=== PATIENT | male | born 1935 | race Caucasian/White ===

== ENCOUNTER 2016-12-10 08:19 | Inpatient (IN) | payer MEDICARE, OTHER ==
[2016-12-10] VITALS (11 sets, daily range): BP systolic 112–149; BP diastolic 57–70; PULSE 60–68; RESP 18; TEMP 97.6–98.4; O2SAT 92–100
[~2016-12-10] VITALS: Ht 175.3 cm; Wt 84.0 kg
[~2016-12-10 08:19] MED LIST: ATELTAB PO; CARD2TAB PO; CYMB60CA PO; FURO1TAB60 PO; GABA300C5 PO; KRIL1000 PO; LEVO-86 PO; LISI40TA PO; TOPR200T PO; WARF-20 PO
[2016-12-10] MEDS: CHLORHEXIDINE GLUCONATE 2 % 1 PACK (2 CLOTHS) TOPICAL PRN ×2 (09:00→10:00)
[2016-12-10] MEDS: POVIDONE IODINE 5% (ANTISEPSIS KIT) 4 APPLICATIONS EACH NARE PRN ×2 (09:00→10:00)
[2016-12-10] MEDS: LACTATED RINGER'S 1000 ML IV PRN ×2 (09:00→10:00)
[2016-12-10] MEDS ORDERED: INSULIN HUMAN REGULAR 1,000 UNITS/10 ML VIAL SQ PRN (09:15)
[2016-12-10] MEDS ORDERED: METOPROLOL TARTRATE 25 MG TAB PO PRN (09:15)
[2016-12-10] MEDS ORDERED: SODIUM CHLORID 0.9% 500 ML IV PRN (09:15)
[2016-12-10] MEDS ORDERED: ceFAZolin 1,000 MG/NS 100 ML IV SCH ×2 (09:15)
[2016-12-10 09:31] LABS: AUTOMATED NEUTROPHIL # 7.5 TH/MM3 (1.8-7.7); BASOPHIL # 0.1 TH/MM3 (0-0.2); BASOPHIL % 0.8 % (0.0-2.0); EOSINOPHIL # 0.2 TH/MM3 (0-0.4); EOSINOPHIL % 2.1 % (0.0-4.0); HEMATOCRIT 39.3 % (39.0-51.0); HEMOGLOBIN 12.6 GM/DL (13.0-17.0); LYMPH % 11.3 % (9.0-44.0); LYMPHOCYTE # 1.1 TH/MM3 (1.0-4.8); MEAN CELL VOLUME 89.4 FL (80.0-100.0); MEAN CORPUSCULAR HEMOGLOBIN 28.8 PG (27.0-34.0); MEAN CORPUSCULAR HGB CONC 32.2 % (32.0-36.0); MEAN PLATELET VOLUME 7.9 FL (7.0-11.0); MONO % 7.2 % (0.0-8.0); MONOCYTE # 0.7 TH/MM3 (0-0.9); NEUT % 78.6 % (16.0-70.0); PLATELET COUNT 346 TH/MM3 (150-450); RED BLOOD COUNT 4.39 MIL/MM3 (4.50-5.90); RED CELL DISTRIBUTION WIDTH 15.2 % (11.6-17.2); WHITE BLOOD COUNT 9.6 TH/MM3 (4.0-11.0)
[2016-12-10 09:43] LABS: BICARBONATE 32.4 MEQ/L (21.0-32.0); CALCIUM 8.8 MG/DL (8.5-10.1); CREATININE 1.39 MG/DL (0.60-1.30)
[2016-12-10 09:46] LABS: INTERNATIONAL NORMALIZED RATIO 1.1 RATIO; PROTHROMBIN TIME - PATIENT 12.5 SEC (9.8-11.6)
[2016-12-10] MEDS ORDERED: BUPIVACAINE/EPINEPHRINE 0.5% 50 ML VIAL ONE (11:14)
[2016-12-10] MEDS ORDERED: HEPARIN SODIUM - IV 10,000 UNITS/10 ML VIAL ONE (11:14)
[2016-12-10] MEDS ORDERED: ceFAZolin INJ 1,000 MG VIAL ONE (11:14)
[2016-12-10] MEDS ORDERED: HEPARIN SODIUM - SQ 10,000 UNITS/ML VIAL ONE (11:14)
[2016-12-10] MEDS ORDERED: PROTAMINE SULFATE 50 MG/5 ML VIAL ONE (11:14)
[2016-12-10] MEDS ORDERED: LIDOCAINE HCL 1% 50 ML VIAL ONE (11:15)
[2016-12-10] MEDS ORDERED: DO NOT ADM ANY ANTICOAGULANT DRUGS PRN (13:42)
[2016-12-10] MEDS ORDERED: SODIUM CHLORIDE 0.9% FLUSH 10 ML FLUSH IV FLUSH PRN (14:15)
[2016-12-10] MEDS ORDERED: ONDANSETRON HCL 4 MG/2 ML VIAL IV PUSH PRN (14:15)
[2016-12-10] MEDS: MORPHINE SULFATE 4 MG/ML INJ IV PUSH PRN ×2 (16:17→23:41)
--- NOTE | 2016-12-10 17:21 | MP ---
cc: NOHA FIORE D.O.,NOAH COLMENARES DATE OF SURGERY: 12/10/2016 PREOPERATIVE DIAGNOSIS: Severe bilateral carotid stenoses, critical left. POSTOPERATIVE DIAGNOSIS: Severe bilateral carotid stenoses, critical left. OPERATION: Left carotid endarterectomy with bovine patch angioplasty. SURGEON: Noah Alberto MD. NURSING HOME AIDE: YULIYA Briggs. ANESTHESIA: General endotracheal anesthesia DESCRIPTION OF OPERATIVE PROCEDURE: With the patient in the supine position, general endotracheal anesthesia was induced, the cervical spine extended, rotated to the right, left anterior cervical area prepped with Betadine and draped in a sterile fashion. One gram of Ancef was administered intravenously and following a protocol time-out, the skin and subcutaneous tissue along the proposed incisional area was preemptively infiltrated with 0.5% Marcaine with epinephrine. A curvilinear incision was performed along the anterior border of the sternocleidomastoid and deepened through the platysma. The sternocleidomastoid and internal jugular vein were mobilized laterally. The common internal, external, carotid and superior thyroid arteries were circumferentially mobilized. Care taken to identify and protect the hypoglossal and vagus nerves. The patient was systemically heparinized with 5000 units. The superior thyroid, external and internal carotid arteries were sequentially occluded with Yasargil clips, the proximal common carotid artery occluded with an angled DeBakey vascular clamp. A vertical arteriotomy was performed along the anterolateral surface of common carotid and extended well into the internal carotid lumen. Two high-grade obstructive focal plaques were present, one within the distal common and the second proximally 2-1/2 cm distal to the bifurcation within the mid internal carotid lumen. The more distal stenosis created near complete occlusion of the internal carotid artery. A Lan shunt was introduced and secured with Lan shunt clamps, care taken to avoid air or atheroembolization. The plaque was cleanly and completely endarterectomized. The neolumen was copiously irrigated with heparinized saline. A bovine patch was secured to the endarterectomy incision with continuous 6-0 Prolene. Prior to placement of the final sutures the Lan shunt was removed, the arterial lumen appropriately flushed, final sutures placed and tied. Pulsatile flow was reestablished first into the external and secondly into the internal carotid as confirmed by Doppler signal. Heparin was reversed with 20 mg of protamine. Strict hemostasis was assured. The platysmal fascia was reapproximated with continuous 4-0 Monocryl and skin reapproximated with continuous subcuticular 5-0 Monocryl. Steri-Strips and sterile dressing were applied. Instrument, needle and sponge count correct x2. No operative complications. Upon awakening from anesthesia no lateralizing neurological deficits were present. MD ELLA Rincon/NEETA /4:54 PM /5:07 PM
--- NOTE | 2016-12-10 20:49 | EKG ---
Date Performed: 12/10/2016 Time Performed: 09:19:29 PTAGE: 81 years EKG: ELECTRONIC VENTRICULAR PACEMAKER WHEN COMPARED TO PRIOR EKG PATIENT IS NO LONGER TACHYCARDI C. ABNORMAL RHYTHM ECG PREVIOUS TRACING : 02/16/2014 12.16 DOCTOR: Jihan Garduno Interpretating Date/Time 12/10/2016 20:48:48
[2016-12-10] MEDS ORDERED: DOXAZOSIN MESYLATE 2 MG TAB PO SCH (21:00)
[2016-12-10] MEDS: FUROSEMIDE 40 MG TAB PO SCH (21:01)
[2016-12-10] MEDS: ACETAMINOPHEN/HYDROcodone 325 MG/5 MG TAB PO PRN (21:01)
[2016-12-10] MEDS: GABAPENTIN 300 MG CAP PO SCH (21:01)
[2016-12-10] MEDS: SODIUM CHLORIDE 0.9% FLUSH 10 ML FLUSH IV FLUSH SCH (21:02)
[2016-12-10] MEDS: DULoxetine HCl DR 60 MG CAP PO SCH (21:11)
[2016-12-11] VITALS (19 sets, daily range): BP systolic 131–142; BP diastolic 60–66; PULSE 60–83; RESP 16–18; TEMP 97.6–97.9; O2SAT 94–98
[2016-12-11] MEDS ORDERED: LEVOTHYROXINE SODIUM 25 MCG TAB PO SCH (06:00)
[2016-12-11] MEDS ORDERED: LEVOTHYROXINE SODIUM 112 MCG TAB PO SCH (06:00)
[2016-12-11] MEDS: ACETAMINOPHEN/HYDROcodone 325 MG/5 MG TAB PO PRN (06:17)
[2016-12-11] MEDS ORDERED: METOPROLOL SUCCINATE 50 MG EXTENDED RELEASE TAB PO SCH (09:00)
[2016-12-11] MEDS ORDERED: LISINOPRIL 20 MG TAB PO SCH (09:00)
[2016-12-11] MEDS: SODIUM CHLORIDE 0.9% FLUSH 10 ML FLUSH IV FLUSH SCH (09:53)
[2016-12-11] MEDS: FUROSEMIDE 40 MG TAB PO SCH (09:54)
[2016-12-11] MEDS: GABAPENTIN 300 MG CAP PO SCH ×2 (09:54→14:40)
[2016-12-11] MEDS: DULoxetine HCl DR 60 MG CAP PO SCH (09:55)
[2016-12-11] MEDS ORDERED: PNEUMOCOCCAL POLYVALENT INJ 25 MCG/0.5 ML SYR IM ONE (10:00)
== END 2016-12-11 15:06 | disposition home or self-care (01) | DRG 38 ==
LOC: HSDI 08:19 → HCPC 16:03
PROVIDERS: ADMIT Surgery Vascular Surgery; ATTEND Surgery Vascular Surgery
PROC: 03CL0ZZ Extirpation of Matter from Left Internal Carotid Artery, Open Approach (ICD-10-PCS; 2016-12-10)
PROC: 03UL0KZ Supplement Left Internal Carotid Artery with Nonautologous Tissue Substitute, Open Approach (ICD-10-PCS; 2016-12-10)
PROC: 03CJ0ZZ Extirpation of Matter from Left Common Carotid Artery, Open Approach (ICD-10-PCS; principal; 2016-12-10 11:30)
DX: I65.23 Occlusion and stenosis of bilateral carotid arteries (principal); I13.0 Hypertensive heart and chronic kidney disease with heart failure and stage 1 through stage 4 chronic kidney disease, or unspecified chronic kidney disease; N18.4 Chronic kidney disease, stage 4 (severe); G62.9 Polyneuropathy, unspecified; I50.9 Heart failure, unspecified; J44.9 Chronic obstructive pulmonary disease, unspecified; I48.2 Chronic atrial fibrillation; N40.0 Benign prostatic hyperplasia without lower urinary tract symptoms; I73.9 Peripheral vascular disease, unspecified; E78.5 Hyperlipidemia, unspecified; E03.9 Hypothyroidism, unspecified; Z23 Encounter for immunization; Z95.0 Presence of cardiac pacemaker; Z87.891 Personal history of nicotine dependence; Z86.73 Personal history of transient ischemic attack (TIA), and cerebral infarction without residual deficits; Z85.828 Personal history of other malignant neoplasm of skin
CPT/HCPCS: 80048; 85025; 85610; 85730; 86850; 86900; 86901; 90732; 93005; J0690; J1644; J2270; J2720; J7120

== ENCOUNTER 2017-01-13 13:25 | Inpatient (IN) | payer MEDICARE, OTHER ==
[~2017-01-13] VITALS: Ht 175.3 cm; Wt 79.5 kg
[2017-01-13] VITALS (13 sets, daily range): BP systolic 121–203; BP diastolic 64–98; PULSE 85–111; RESP 16–20; TEMP 98.2–98.8; O2SAT 78–100
[2017-01-13] MEDS ORDERED: GABA600T PO (13:42)
[2017-01-13] MEDS ORDERED: SYMB80AE INH (13:42)
[2017-01-13] MEDS ORDERED: ALBU0.08 NEB (13:42)
[2017-01-13] MEDS ORDERED: RESP: ALBUTEROL 2.5 MG/IPRATROPIUM 0.5 MG NEB (SCH) NEB ONE (13:45)
[2017-01-13] MEDS ORDERED: FUROSEMIDE 100 MG/10 ML VIAL IV PUSH ONE (13:45)
--- NOTE | 2017-01-13 13:46 | PD ---
HPI Chief Complaint: Respiratory Distress Time Seen by Provider: 13:33 Travel History International Travel<30 days: No Contact w/Intl Traveler<30days: No Traveled to known affect area: No History of Present Illness HPI This 81-year-old male is complaining of shortness of breath for several days. He has a history of COPD and also CHF. He has a pacemaker. He had a stroke in 1993 but had a full recovery. He does have a history of atrial fibrillation and is on Coumadin. He says that several months ago he had a thoracentesis on several liters of fluid removed from his chest at [facility]. He denies any chest pain. He is on Lasix twice a day. He denies any recent chest pain except chest pain associated with coughing. He stopped smoking many years ago. He is not aware of any history of myocardial infarction PFS Past Medical History Arthritis: Yes Autoimmune Disease: No Heart Rhythm Problems: Yes (AFIB S/P PACER) Cancer: Yes (skin cancer) Cardiovascular Problems: Yes (a fib pt thinks possible congestive heart problems) High Cholesterol: Yes Congestive Heart Failure: Yes Cerebrovascular Accident: Yes (TIA) Diabetes: No Endocrine: Yes Glaucoma: No Genitourinary: No Hepatitis: No Hiatal Hernia: No Hypertension: Yes Immune Disorder: No Musculoskeletal: Yes (back and neck problems arthritis hx of spinal stenosis) Neurologic: Yes (stroke tia later on ) Psychiatric: No Reproductive: No Respiratory: Yes (copd) Thyroid Disease: Yes Past Surgical History Abdominal Surgery: No AICD: No Body Medical Devices: PACEMAKER Cardiac Surgery: Yes (pacemaker 1993) Ear Surgery: No Endocrine Surgery: No Eye Surgery: Yes (cataract surgery) Genitourinary Surgery: No Gynecologic Surgery: No Joint Replacement: Yes (left knee) Oral Surgery: Yes ( t and a) Pacemaker: Yes (medtronic) Thoracic Surgery: No Other Surgery: Yes Social History Alcohol Use: Yes (couple of beers mostly in the evening) Tobacco Use: Yes (pt quit in 1976) Substance Use: No Allergies-Medications (Allergen,Severity, Reaction): Coded Allergies: No Known Allergies (Unverified , 12/10/16) Reported Meds & Prescriptions Reported Meds & Active Scripts Active Reported Albuterol Neb (Albuterol Sulfate) 2.5 Mg/3 Ml Neb 2.5 Mg NEB Q4HR NEB While awake Symbicort Inh (Budesonide/Formoterol Fumarate) 80-4.5 Mcg/Act Aero 2 Puff INH Q12HR Gabapentin 600 Mg Tab 600 Mg PO BID Atelvia (Risedronate) 35 Mg Tabdr 35 Mg PO Q7D Warfarin 4 Mg Tab 4 Mg PO HS Toprol XL (Metoprolol Succinate) 200 Mg Tab 200 Mg PO HS Synthroid (Levothyroxine Sodium) 137 Mcg Tab 137 Mcg PO DAILY Lisinopril 40 Mg Tab 40 Mg PO DAILY Lasix (Furosemide) 40 Mg Tab 40 Mg PO BID Cymbalta DR (Duloxetine HCl) 60 Mg Capdr 60 Mg PO BID Cardura (Doxazosin Mesylate) 2 Mg Tab 2 Mg PO HS Review of Systems General / Constitutional: No: Fever, Chills Eyes: No: Diploplia, Blurred Vision HENT: No: Headaches, Vertigo Cardiovascular: No: Chest Pain or Discomfort, Palpitations Respiratory: Positive: Cough, Shortness of Breath Gastrointestinal: No: Vomiting, Diarrhea Genitourinary: No: Urgency, Frequency, Oliguria Skin: No Rash, No Itching Neurologic: No: Weakness Physical Exam Narrative GENERAL well-developed male. On arrival his oxygen saturation 78% and he is in marked respiratory distress SKIN: Focused skin assessment warm/dry. HEAD: Atraumatic. Normocephalic. EYES: Pupils equal and round. No scleral icterus. No injection or drainage. ENT: No nasal bleeding or discharge. Mucous membranes pink and moist. NECK: Trachea midline. No JVD. CARDIOVASCULAR: Irregular rate and rhythm. No murmur appreciated. RESPIRATORY: There is accessory muscle use. He has bilateral rales GASTROINTESTINAL: Abdomen soft, non-tender, nondistended. Hepatic and splenic margins not palpable. MUSCULOSKELETAL: No obvious deformities. No clubbing. No cyanosis. Trace edema. NEUROLOGICAL: Awake and alert. No obvious cranial nerve deficits. Motor grossly within normal limits. Normal speech. PSYCHIATRIC: Appropriate mood and affect; insight and judgment normal. Data Data Last Documented VS Vital Signs Date Time Temp Pulse Resp B/P (MAP) Pulse Ox O2 Delivery O2 Flow Rate FiO2 01/13/17 14:19 111 18 184/78 (113) 92 Nasal Cannula 4.00 01/13/17 13:42 98.8 Orders Orders Complete Blood Count With Diff (01/13/17 13:40) Comprehensive Metabolic Panel (01/13/17 13:40) Troponin I (01/13/17 13:40) B-Type Natriuretic Peptide (01/13/17 13:40) Prothrombin Time / Inr (Pt) (01/13/17 13:40) Act Partial Throm Time (Ptt) (01/13/17 13:40) Blood Culture (01/13/17 13:40) Urinalysis - C+S If Indicated (01/13/17 13:40) Chest, Single Ap (01/13/17 13:40) Albuterol-Ipratropium Neb (Duoneb Neb) (01/13/17 13:45) Furosemide Inj (Lasix Inj) (01/13/17 13:45) Electrocardiogram (01/13/17 13:29) Potassium Chloride Eff (K-Lyte Cl Eff) (01/13/17 15:00) Labs Laboratory Tests Test 01/13/17 14:00 01/13/17 14:35 White Blood Count 10.2 TH/MM3 Red Blood Count 4.62 MIL/MM3 Hemoglobin 13.0 GM/DL Hematocrit 40.3 % Mean Corpuscular Volume 87.3 FL Mean Corpuscular Hemoglobin 28.2 PG Mean Corpuscular Hemoglobin Concent 32.3 % Red Cell Distribution Width 15.4 % Platelet Count 253 TH/MM3 Mean Platelet Volume 8.5 FL Neutrophils (%) (Auto) 85.0 % Lymphocytes (%) (Auto) 7.3 % Monocytes (%) (Auto) 7.5 % Eosinophils (%) (Auto) 0.1 % Basophils (%) (Auto) 0.1 % Neutrophils # (Auto) 8.7 TH/MM3 Lymphocytes # (Auto) 0.7 TH/MM3 Monocytes # (Auto) 0.8 TH/MM3 Eosinophils # (Auto) 0.0 TH/MM3 Basophils # (Auto) 0.0 TH/MM3 CBC Comment DIFF FINAL Differential Comment Prothrombin Time 11.4 SEC Prothromb Time International Ratio 1.0 RATIO Activated Partial Thromboplast Time 30.8 SEC Blood Urea Nitrogen 22 MG/DL Creatinine 1.40 MG/DL Random Glucose 102 MG/DL Total Protein 8.1 GM/DL Albumin 3.0 GM/DL Calcium Level 8.5 MG/DL Alkaline Phosphatase 87 U/L Aspartate Amino Transf (AST/SGOT) 39 U/L Alanine Aminotransferase (ALT/SGPT) 26 U/L Total Bilirubin 1.4 MG/DL Sodium Level 139 MEQ/L Potassium Level 2.8 MEQ/L Chloride Level 101 MEQ/L Carbon Dioxide Level 29.2 MEQ/L Anion Gap 9 MEQ/L Estimat Glomerular Filtration Rate 49 ML/MIN Troponin I 1.08 NG/ML B-Type Natriuretic Peptide 600 PG/ML Urine Color YELLOW Urine Turbidity CLEAR Urine pH 6.0 Urine Specific [place] 1.014 Urine Protein 300 OR GREATER mg/dL Urine Glucose (UA) NEG mg/dL Urine Ketones NEG mg/dL Urine Occult Blood MOD Urine Nitrite NEG Urine Bilirubin NEG Urine Leukocyte Esterase NEG Urine RBC 0-3 /hpf Urine Squamous Epithelial Cells 0-5 /hpf Urine Bacteria RARE /hpf Urine Granular Casts 3-5 /lpf Microscopic Urinalysis Comment CULT NOT INDICATED MDM Medical Decision Making Medical Screen Exam Complete: Yes Emergency Medical Condition: Yes Medical Record Reviewed: Yes Differential Diagnosis Differential diagnoses includes CHF, COPD, pneumonia Narrative Course EKG shows atrial fibrillation at a rate of 99. There is slight ST depression in V5 and a 6. Chest x-ray shows cardiomegaly with bilateral pleural effusions and bilateral infiltrates. His BNP is 600. Troponin is 1.08. Potassium is 2.8. Case discussed with Dr. JETER who recommends transfer to [facility] Diagnosis Primary Impression: Congestive heart failure (CHF) Additional Impressions: Elevated troponin Hypokalemia Admitting Information Admitting Physician Requests: Admit Josemanuel Hooper MD Jan 13, 2017 13:46
[2017-01-13 14:14] LABS: AUTOMATED NEUTROPHIL # 8.7 TH/MM3 (1.8-7.7); BASOPHIL % 0.1 % (0.0-2.0); EOSINOPHIL % 0.1 % (0.0-4.0); HEMATOCRIT 40.3 % (39.0-51.0); HEMO FLAGS DIFF FINAL; LYMPH % 7.3 % (9.0-44.0); LYMPHOCYTE # 0.7 TH/MM3 (1.0-4.8); MEAN CELL VOLUME 87.3 FL (80.0-100.0); MEAN CORPUSCULAR HEMOGLOBIN 28.2 PG (27.0-34.0); MEAN CORPUSCULAR HGB CONC 32.3 % (32.0-36.0); MONO % 7.5 % (0.0-8.0); PLATELET COUNT 253 TH/MM3 (150-450); RED BLOOD COUNT 4.62 MIL/MM3 (4.50-5.90); RED CELL DISTRIBUTION WIDTH 15.4 % (11.6-17.2); WHITE BLOOD COUNT 10.2 TH/MM3 (4.0-11.0)
[2017-01-13 14:26] LABS: APTT (PATIENT) 30.8 SEC (24.3-30.1); PROTHROMBIN TIME - PATIENT 11.4 SEC (9.8-11.6)
[2017-01-13 14:47] LABS: BLOOD, URINE MOD (NEG); GLUCOSE,URINE NEG (NEG); KETONE, URINE NEG (NEG); NITRITE,URINE NEG (NEG)
[2017-01-13 14:48] LABS: ALKALINE PHOSPHATASE 87 U/L (45-117); ALT (GPT) 26 U/L (12-78); ANION GAP 9 MEQ/L (5-15); AST (GOT) 39 U/L (15-37); BICARBONATE 29.2 MEQ/L (21.0-32.0); BLOOD UREA NITROGEN 22 MG/DL (7-18); CHLORIDE 101 MEQ/L (98-107); GLOMERULAR FILTRATION RATE 49 ML/MIN (>89); SODIUM (NA) 139 MEQ/L (136-145); TOTAL BILIRUBIN ADULT 1.4 MG/DL (0.2-1.0)
[2017-01-13 14:50] LABS: POTASSIUM 2.8 MEQ/L (3.5-5.1)
[2017-01-13 14:51] LABS: URINE COLOR YELLOW (YELLW/STRAW)
[2017-01-13 14:54] LABS: BACTERIA, URINE RARE /hpf; COMMENT (UR) CULT NOT INDICATED; CULTURE IF INDICATED CULT NOT INDICATED; RBC, URINE 0-3 /hpf (0-3); SQUAMOUS EPITHELIAL CELL URINE 0-5 /hpf (0-5)
[2017-01-13] MEDS ORDERED: POTASSIUM CHLORIDE 25 MEQ EFFERVESCENT TAB PO ONE (15:00)
--- NOTE | 2017-01-13 15:11 | RADRPT ---
EXAM DATE/TIME: 01/13/2017 13:50 [facility] COMPARISON: CHEST SINGLE AP, January 09, 2012, 16:44. INDICATIONS : Short of breath MEDICAL HISTORY : Chronic obstructive pulmonary disease. Hypertension Congestive heart failure. Afib SURGICAL HISTORY : Pacemaker. ENCOUNTER: Initial ACUITY: 1 day PAIN SCORE: 0/10 LOCATION: Bilateral chest FINDINGS: The cardiac silhouette is enlarged in transverse diameter. There are findings of congestive heart kalani lure with interstitial and alveolar opacity bilaterally. Moderate size bilateral pleural effusions ar e identified. A bipolar pacemaker is in place via a right sided approach. CONCLUSION: 1. Cardiomegaly and findings of congestive heart failure. This is new when compared with the prior ex am. Norman Potts MD on January 13, 2017 at 15:08 Board Certified Radiologist. This report was verified electronically.
[2017-01-13] MEDS ORDERED: WARFARIN SOD 4 MG TAB PO ONE (15:30)
--- NOTE | 2017-01-13 15:55 | HHI.HP ---
[facility] Service [facility] Primary Care Physician Adarsh Sawyer, Admission Diagnosis CHF, ELEVATED TROPONIN Diagnoses: Chief Complaint: Shortness of breath Travel History International Travel<30 Days: No Contact w/Intl Traveler <30 Da: No Traveled to Known Affected Are: No History of Present Illness This patient is a very pleasant 81-year-old gentleman with a history of COPD and atrial fibrillation as well as congestive heart failure. Patient did come to the emergency room with at least a week of increasing dyspnea on exertion and orthopnea. Over the last 24 hours he felt worse and his said he had to come to the hospital so he did. He returned from [place] about 2 days ago. He traveled there to bury his sister and had a hard time keeping up with his medications and staying on his cardiac diet. He presented now with increased work of breathing on exam/tachypnea as well as tachycardia and hypoxemia. He was 79% O2 on arrival and he has received aggressive diuresis in the emergency room with good improvement of his symptoms. There is no chest pain with the patient does have elevated blood pressure as well as elevated cardiac troponin. He has not had any edema. He has not had any syncopal events. Patient at this time feels much better although he still says he is not at his baseline. His oxygenation has improved and the patient is recommended for admission and further cardiac evaluation due to his symptoms of acute exacerbation of systolic heart failure and hypoxemic respiratory failure. Review of Systems Constitutional: DENIES: Diaphoretic episodes, Fatigue, Fever, Weight gain, Weight loss, Chills, Dizziness, Change in appetite, Night Sweats Endocrine: DENIES: Heat/cold intolerance, Polydipsia, Polyuria, Polyphagia Eyes: DENIES: Blurred vision, Diplopia, Eye inflammation, Eye pain, Vision loss , Photosensitivity, Double Vision Ears, nose, mouth, throat: DENIES: Tinnitus, Hearing loss, Vertigo, Nasal discharge, Oral lesions, Throat pain, Hoarseness, Ear Pain, Running Nose, Epistaxis, Sinus Pain, Toothache, Odynophagia Respiratory: DENIES: Apneas, Cough, Snoring, Wheezing, Hemoptysis, Sputum production, Shortness of breath Cardiovascular: COMPLAINS OF: Palpitations, Dyspnea on Exertion, DENIES: Chest pain, Syncope, PND, Lower Extremity Edema, Orthopnea, Claudication Gastrointestinal: DENIES: Abdominal pain, Black stools, Bloody stools, Constipation, Diarrhea, Nausea, Vomiting, Difficulty Swallowing, Anorexia Genitourinary: DENIES: Sexual dysfunction, Urinary frequency, Urinary incontinence, Urgency, Hematuria, Dysuria, Nocturia, Penile Discharge, Testicular Pain, Testicular Swelling Musculoskeletal: DENIES: Joint pain, Muscle aches, Stiffness, Joint Swelling, Back pain, Neck pain Integumentary: DENIES: Abnormal pigmentation, Nail changes, Pruritus, Rash Hematologic/lymphatic: DENIES: Bruising, Lymphadenopathy Immunologic/allergic: DENIES: Eczema, Urticaria Neurologic: COMPLAINS OF: Paresthesias, DENIES: Abnormal gait, Headache, Localized weakness, Seizures, Speech Problems, Tremor, Poor Balance Psychiatric: DENIES: Anxiety, Confusion, Mood changes, Depression, Hallucinations, Agitation, Suicidal Ideation, Homicidal Ideation, Delusions Except as stated in HPI: all other systems reviewed are Neg Past Family Social History Past Medical History Spinal stenosis with neuropathy Congestive heart failure Hypothyroid disorder COPD Atrial fibrillation Past Surgical History Pacemaker Cataracts Knee surgery Reported Medications Reviewed in the EMR, nothing new Allergies: Coded Allergies: No Known Allergies (Unverified , 12/10/16) Active Ordered Medications Reviewed in the EMR Family History Father had heart disease Social History No current tobacco or alcohol, quit tobacco in the 70s, lives with his , recently returned from [place] where he buried his sister Physical Exam Vital Signs Vital Signs Date Time Temp Pulse Resp B/P (MAP) Pulse Ox O2 Delivery O2 Flow Rate FiO2 01/13/17 15:45 106 18 158/87 (110) 92 Nasal Cannula 4.00 01/13/17 14:19 111 18 184/78 (113) 92 Nasal Cannula 4.00 01/13/17 13:46 95 Nasal Cannula 4.00 01/13/17 13:42 98.8 100 20 203/90 (127) 78 Physical Exam GENERAL: This is a well-nourished, well-developed patient, short of breath with aggressive diuresis accomplished in urinal bedside SKIN: No rashes, ecchymoses or lesions. Cool and dry. HEAD: Atraumatic. Normocephalic. No temporal or scalp tenderness. EYES: Pupils equal round and reactive. Extraocular motions intact. No scleral icterus. No injection or drainage. ENT: Nose without bleeding, purulent drainage or septal hematoma. Throat without erythema, tonsillar hypertrophy or exudate. Uvula midline. Airway patent. NECK: Trachea midline. No JVD or lymphadenopathy. Supple, nontender, no meningeal signs. CARDIOVASCULAR: Sinus tachycardia without murmurs, gallops, or rubs. RESPIRATORY: Decreased air flow bilaterally, no wheezes, crackles in the base bilaterally GASTROINTESTINAL: Abdomen soft, non-tender, nondistended. No hepato-splenomegaly , or palpable masses. No guarding. MUSCULOSKELETAL: Extremities without clubbing, cyanosis, or edema. No joint tenderness, effusion, or edema noted. No calf tenderness. Negative Homans sign bilaterally. NEUROLOGICAL: Awake and alert. Cranial nerves II through XII intact. Motor and sensory grossly within normal limits. Five out of 5 muscle strength in all muscle groups. Normal speech. Laboratory Laboratory Tests Test 01/13/17 14:00 01/13/17 14:35 White Blood Count 10.2 Red Blood Count 4.62 Hemoglobin 13.0 Hematocrit 40.3 Mean Corpuscular Volume 87.3 Mean Corpuscular Hemoglobin 28.2 Mean Corpuscular Hemoglobin Concent 32.3 Red Cell Distribution Width 15.4 Platelet Count 253 Mean Platelet Volume 8.5 Neutrophils (%) (Auto) 85.0 Lymphocytes (%) (Auto) 7.3 Monocytes (%) (Auto) 7.5 Eosinophils (%) (Auto) 0.1 Basophils (%) (Auto) 0.1 Neutrophils # (Auto) 8.7 Lymphocytes # (Auto) 0.7 Monocytes # (Auto) 0.8 Eosinophils # (Auto) 0.0 Basophils # (Auto) 0.0 CBC Comment DIFF FINAL Differential Comment Prothrombin Time 11.4 Prothromb Time International Ratio 1.0 Activated Partial Thromboplast Time 30.8 Blood Urea Nitrogen 22 Creatinine 1.40 Random Glucose 102 Total Protein 8.1 Albumin 3.0 Calcium Level 8.5 Alkaline Phosphatase 87 Aspartate Amino Transf (AST/SGOT) 39 Alanine Aminotransferase (ALT/SGPT) 26 Total Bilirubin 1.4 Sodium Level 139 Potassium Level 2.8 Chloride Level 101 Carbon Dioxide Level 29.2 Anion Gap 9 Estimat Glomerular Filtration Rate 49 Troponin I 1.08 B-Type Natriuretic Peptide 600 Urine Color YELLOW Urine Turbidity CLEAR Urine pH 6.0 Urine Specific Hale 1.014 Urine Protein 300 OR GREATER Urine Glucose (UA) NEG Urine Ketones NEG Urine Occult Blood MOD Urine Nitrite NEG Urine Bilirubin NEG Urine Leukocyte Esterase NEG Urine RBC 0-3 Urine Squamous Epithelial Cells 0-5 Urine Bacteria RARE Urine Granular Casts 3-5 Microscopic Urinalysis Comment CULT NOT INDICATED Date/Time Source Procedure Growth Status 01/13/17 14:18 Blood Peripheral Aerobic Blood Culture Pending Received 01/13/17 14:18 Blood Peripheral Anaerobic Blood Culture Pending Received Result Diagram: 01/13/17 1400 01/13/17 1400 Imaging Last Impressions Chest X-Ray 01/13/17 1340 Signed Impressions: Service Date/Time: Friday, January 13, 2017 13:50 - CONCLUSION: 1. Cardiomegaly and findings of congestive heart failure. This is new when compared with the prior exam. MD Nando Pineda VTE Risk Assessment Caprinpenny VTE Risk Assessment: Mod/High Risk (score >= 2) VTE Pharm Contraindication: Coagulopathy,INR elevated Caprini Risk Assessment Model Point Value = 1 Point Value = 2 Point Value = 3 Point Value = 5 Age 41-60 Minor surgery BMI > 25 kg/m2 Swollen legs Varicose veins or History of unexplained or recurrent spontaneous Oral contraceptives or hormone replacement Sepsis (< 1 month) Serious lung disease, including pneumonia (< 1 month) Abnormal pulmonary function Acute myocardial infarction Congestive heart failure (< 1 month) History of inflammatory bowel disease Medical patient at bed rest Age 61-74 Arthroscopic surgery Major open surgery (> 45 min) Laparoscopic surgery (> 45 min) Malignancy Confined to bed (> 72 hours) Immobilizing plaster cast Central venous access Age >= 75 History of VTE Family history of VTE Factor V Leiden Prothrombin [id number] Lupus anticoagulant Anticardiolipin antibodies Elevated serum homocysteine Heparin-induced thrombocytopenia Other congenital or acquired thrombophilia Stroke (< 1 month) Elective arthroplasty Hip, pelvis, or leg fracture Acute spinal cord injury (< 1 month) Prophylaxis Regimen Total Risk Factor Score Risk Level Prophylaxis Regimen 0-1 Low Early ambulation 2 Moderate Order ONE of the following: *Sequential Compression Device (SCD) *Heparin 5000 units SQ BID 3-4 Higher Order ONE of the following medications: *Heparin 5000 units SQ TID *Enoxaparin/Lovenox 40 mg SQ daily (WT < 150 kg, CrCl > 30 mL/min) *Enoxaparin/Lovenox 30 mg SQ daily (WT < 150 kg, CrCl > 10-29 mL/min) *Enoxaparin/Lovenox 30 mg SQ BID (WT < 150 kg, CrCl > 30 mL/min) AND/OR *Sequential Compression Device (SCD) 5 or more Highest Order ONE of the following medications: *Heparin 5000 units SQ TID (Preferred with Epidurals) *Enoxaparin/Lovenox 40 mg SQ daily (WT < 150 kg, CrCl > 30 mL/min) *Enoxaparin/Lovenox 30 mg SQ daily (WT < 150 kg, CrCl > 10-29 mL/min) *Enoxaparin/Lovenox 30 mg SQ BID (WT < 150 kg, CrCl > 30 mL/min) AND *Sequential Compression Device (SCD) Assessment and Plan Problem List: (1) Acute exacerbation of CHF (congestive heart failure) ICD Code: I50.9 - Heart failure, unspecified Plan: Continue diuresis, follow electrolytes Chest x-ray on my review is consistent with congestion pattern and signs and symptoms are consistent with this Ins and outs accurately to be followed (2) Elevated troponin ICD Code: R74.8 - Abnormal levels of other serum enzymes Status: Acute Plan: Follow trend and continue with beta belkis, lovenox/warfarin (inr 1.0), follow cardiac enzymes Nitroglycerin as needed Oxygen to see Continue telemetry Follow-up with cardiology Likely due to congestive heart failure and elevated blood pressure (3) Hypokalemia ICD Code: E87.6 - Hypokalemia Status: Acute Plan: Replace electrolytes and follow Follow magnesium (4) HTN (hypertension) ICD Code: I10 - Essential (primary) hypertension Plan: Elevated and improved with diuresis Continue metoprolol, lisinopril and Cardura Assessment and Plan Plan of care to be determined by Hospital course Code Status DO NOT RESUSCITATE Discussed Condition With PatientMATILDA M.D. Physician Certification 2 Midnight Certification Type: Admission for Inpatient Services Order for Inpatient Services The services are ordered in accordance with Medicare regulations or non- Medicare payer requirements, as applicable. In the case of services not specified as inpatient-only, they are appropriately provided as inpatient services in accordance with the 2-midnight benchmark. Estimated LOS (days): 3 3 days is the estimated time the patient will need to remain in the hospital, assuming treatment plan goals are met and no additional complications. Post-Hospital Plan: Susan Mahmood MD Jan 13, 2017 15:55
[2017-01-13] MEDS ORDERED: NALOXONE HCL 0.4 MG/ML AMP IV PUSH PRN (16:00)
[2017-01-13] MEDS ORDERED: ONDANSETRON HCL 4 MG/2 ML VIAL IVP PRN (16:00)
[2017-01-13] MEDS ORDERED: NITROGLYCERIN 0.4 MG SL 25 TABS/BTL SL PRN (16:00)
[2017-01-13] MEDS ORDERED: ACETAMINOPHEN 325 MG TAB PO PRN (16:00)
[2017-01-13] MEDS ORDERED: SODIUM CHLORIDE 0.9% FLUSH 10 ML FLUSH IV FLUSH PRN (16:00)
[2017-01-13] MEDS: ENOXAPARIN SODIUM 80 MG/0.8 ML SYRINGE SQ SCH (17:43)
[2017-01-13] MEDS: FUROSEMIDE 20 MG/2 ML VIAL IV PUSH SCH (17:44)
[2017-01-13] MEDS: GABAPENTIN 300 MG CAP PO SCH (20:54)
[2017-01-13] MEDS: WARFARIN SOD 4 MG TAB PO SCH (20:55)
[2017-01-13] MEDS: DOXAZOSIN MESYLATE 2 MG TAB PO SCH (20:55)
[2017-01-13] MEDS: BUDESONIDE-FORMOTEROL 80/4.5 MCG INHALER INH SCH (20:56)
[2017-01-13] MEDS: METOPROLOL SUCCINATE 50 MG EXTENDED RELEASE TAB PO SCH (20:56)
[2017-01-13] MEDS: DULoxetine HCl DR 60 MG CAP PO SCH (20:56)
[2017-01-13] MEDS ORDERED: DO NOT ADM ANY ANTICOAGULANT DRUGS OTHER PRN (21:00)
[2017-01-13] MEDS: SODIUM CHLORIDE 0.9% FLUSH 10 ML FLUSH IV FLUSH SCH (21:00)
[2017-01-13] MEDS: RESP: ALBUTEROL 2.5 MG/3 ML NEB (SCH) INH (22:20)
[2017-01-14] VITALS (22 sets, daily range): BP systolic 145–167; BP diastolic 64–82; PULSE 73–100; RESP 18–21; TEMP 98.2–100.5; O2SAT 90–95
[2017-01-14] MEDS: RESP: ALBUTEROL 2.5 MG/3 ML NEB (SCH) INH ×3 (02:58→08:50)
[2017-01-14] MEDS: LEVOTHYROXINE SODIUM 25 MCG TAB PO SCH (06:00)
[2017-01-14] MEDS: ENOXAPARIN SODIUM 80 MG/0.8 ML SYRINGE SQ SCH ×2 (06:00→17:17)
[2017-01-14] MEDS: LEVOTHYROXINE SODIUM 112 MCG TAB PO SCH (08:37)
[2017-01-14] MEDS: SODIUM CHLORIDE 0.9% FLUSH 10 ML FLUSH IV FLUSH SCH ×2 (08:37→20:30)
[2017-01-14] MEDS: FUROSEMIDE 20 MG/2 ML VIAL IV PUSH SCH ×3 (08:38→17:18)
[2017-01-14] MEDS: GABAPENTIN 300 MG CAP PO SCH ×2 (08:38→20:30)
[2017-01-14] MEDS: LISINOPRIL 20 MG TAB PO SCH (08:38)
[2017-01-14] MEDS: POTASSIUM CHLORIDE 20 MEQ CONTROLLED RELEASE TAB PO SCH (08:39)
[2017-01-14] MEDS: DULoxetine HCl DR 60 MG CAP PO SCH ×2 (08:41→20:29)
[2017-01-14] MEDS: BUDESONIDE-FORMOTEROL 80/4.5 MCG INHALER INH SCH ×2 (08:42→20:30)
[2017-01-14 08:43] LABS: AUTOMATED NEUTROPHIL # 6.5 TH/MM3 (1.8-7.7); BASOPHIL % 0.1 % (0.0-2.0); EOSINOPHIL % 0.3 % (0.0-4.0); HEMATOCRIT 35.6 % (39.0-51.0); HEMO FLAGS DIFF FINAL; LYMPH % 6.7 % (9.0-44.0); LYMPHOCYTE # 0.5 TH/MM3 (1.0-4.8); MEAN CELL VOLUME 88.6 FL (80.0-100.0); MEAN CORPUSCULAR HEMOGLOBIN 28.6 PG (27.0-34.0); MEAN CORPUSCULAR HGB CONC 32.2 % (32.0-36.0); MONO % 6.5 % (0.0-8.0); NEUT % 86.4 % (16.0-70.0); PLATELET COUNT 206 TH/MM3 (150-450); RED BLOOD COUNT 4.02 MIL/MM3 (4.50-5.90); RED CELL DISTRIBUTION WIDTH 16.4 % (11.6-17.2); WHITE BLOOD COUNT 7.6 TH/MM3 (4.0-11.0)
[2017-01-14 09:11] LABS: POTASSIUM 3.5 MEQ/L (3.5-5.1)
--- NOTE | 2017-01-14 09:32 | HHI.PR ---
Subjective Remarks Feels 25% better, still short of breath. Low-grade fever this morning 100.4. C/o significant cough x 1 week, also has had fevers at home up to 101. +small amount yellow sputum. No edema. No chest pain or pressure. Does not use home O2. Humaira-aminta Adan-yessy. Objective Vitals Vital Signs Date Time Temp Pulse Resp B/P (MAP) Pulse Ox O2 Delivery O2 Flow Rate FiO2 01/14/17 09:00 86 01/14/17 08:51 92 Nasal Cannula 4.00 01/14/17 08:00 100.4 80 20 162/67 (98) 93 01/14/17 07:15 73 01/14/17 04:00 98.3 77 20 145/64 (91) 01/14/17 00:00 74 01/13/17 23:52 98.2 85 20 145/71 (95) 96 01/13/17 23:23 89 16 138/64 (88) 98 Nasal Cannula 3.00 01/13/17 23:10 96 16 163/72 (102) 98 Nasal Cannula 3.00 01/13/17 22:20 97 Nasal Cannula 4.00 01/13/17 21:01 96 16 156/72 (100) 98 Nasal Cannula 2.00 01/13/17 19:17 98 16 97 01/13/17 19:17 98 16 146/77 (100) 97 Room Air 01/13/17 17:37 104 18 160/73 (102) 95 Nasal Cannula 4.00 01/13/17 16:58 107 18 178/98 (124) 94 Nasal Cannula 4.00 01/13/17 15:45 106 18 158/87 (110) 92 Nasal Cannula 4.00 01/13/17 14:19 111 18 184/78 (113) 92 Nasal Cannula 4.00 01/13/17 13:46 95 Nasal Cannula 4.00 01/13/17 13:42 98.8 100 20 203/90 (127) 78 I/O 01/13/17 01/13/17 01/13/17 01/14/17 01/14/17 01/14/17 07:00 15:00 23:00 07:00 15:00 23:00 Intake Total 240 ml Output Total 200 ml 1375 ml 550 ml Balance -200 ml -1375 ml -310 ml Intake Oral 240 ml Output Urine Total 200 ml 1375 ml 550 ml Stool Total 0 ml # Voids 1 5 Result Diagram: 01/14/1780101/14/17801 Objective Remarks GENERAL: Well-nourished, well-developed very pleasant elderly male patient. SKIN: Warm and dry. HEAD: Normocephalic. EYES: No scleral icterus. No injection or drainage. NECK: Supple, trachea midline. No JVD or lymphadenopathy. CARDIOVASCULAR: Irregularly irregular rate and rhythm without murmurs, gallops, or rubs. RESPIRATORY: Breath sounds equal bilaterally. Positive crackles bilaterally. Mild accessory muscle use, speaks in shortened sentences.. GASTROINTESTINAL: Abdomen soft, non-tender, nondistended. EXTREMITIES: No peripheral edema. NEUROLOGICAL: Awake, alert, and oriented x 3. Non-focal. A/P Problem List: (1) Acute exacerbation of CHF (congestive heart failure) ICD Code: I50.9 - Heart failure, unspecified (2) Elevated troponin ICD Code: R74.8 - Abnormal levels of other serum enzymes Status: Acute (3) Hypokalemia ICD Code: E87.6 - Hypokalemia Status: Acute (4) HTN (hypertension) ICD Code: I10 - Essential (primary) hypertension (5) CAP (community acquired pneumonia) ICD Code: J18.9 - Pneumonia, unspecified organism (6) COPD exacerbation ICD Code: J44.1 - Chronic obstructive pulmonary disease with (acute) exacerbation (7) Acute respiratory failure ICD Code: J96.00 - Acute respiratory failure, unspecified whether with hypoxia or hypercapnia Assessment and Plan -Acute CHF - pulm edema - continue diuresis, echo ordered. last echo '12 preserved LVEF, mild AVR. cxr odered today I reviewed images shows improved pulm edema pattern. ff BMP. -Elevated troponin - possible NSTEMI vs type 2 NSTEMI due to resp failure, infection- Dr. Wick consulted. [facility] ' showed mild CAD, moderate AVR. cont medical management asa, metoprolol, start lipitor, check FLP. -Probable CAP - cough, fever x 1 week - start rocephin, zithromax. -Hypokalemia - K3.5 today, recheck in a.m. start kcl 20 meq daily while on diuretics. -COPD - possible exacerbation however no wheezing on exam. duonebs q 6 hr and q2 hr prn, symbicort and abx for now. Avoid Solu-Medrol due to the infection. -Acute resp failure - hypoxia requiring 4 L nasal cannula- due to the above - cont O2 via NC. -Afib, PPP - HR controlled, INR subtherapeutic - cont coumadin. -History of stroke 4 years ago without residual defects. -CKD 3 -cr 1.3 monitor renal function while on diuretics. -Hypothyroidism - cont synthroid 25 mcg daily. -chronic neck pain - cont cymbalta and neurontin. -HTN - BP elevated. cont metoprolol. monitor BP trends and adjust medications accordingly. -DNR status confirmed with patient Pau Stephenson MD Jan 14, 2017 09:32
[2017-01-14] MEDS ORDERED: RESP: ALBUTEROL 2.5 MG/IPRATROPIUM 0.5 MG NEB (PRN) NEB (09:45)
--- NOTE | 2017-01-14 09:46 | RADRPT ---
EXAM DATE/TIME: 01/14/2017 08:53 [place] COMPARISON: CHEST SINGLE AP, January 13, 2017, 13:50. INDICATIONS : Congestive Heart Failure. MEDICAL HISTORY : Chronic obstructive pulmonary disease. Hypertension. SURGICAL HISTORY : Pacemaker. Left Endarterectomy. ENCOUNTER: Initial ACUITY: 2 days PAIN SCORE: 0/10 LOCATION: Bilateral chest FINDINGS: Pacer right chest with small right pleural effusion and minimal interstitial edema, improved in the i nterval. CONCLUSION: Interval improvement with less interstitial edema. Trace fluid on the right. Alvaro Garcia MD FACR on January 14, 2017 at 9:43 Board Certified Radiologist. This report was verified electronically.
[2017-01-14] MEDS: AZITHROMYCIN 250 MG TAB PO SCH (10:41)
[2017-01-14] MEDS: cefTRIAXone INJ 1,000 MG in SODIUM CHLORIDE 0.9% INJ 100 ML IV SCH (10:41)
[2017-01-14] MEDS: RESP: ALBUTEROL 2.5 MG/IPRATROPIUM 0.5 MG NEB (SCH) NEB ×2 (12:22→19:35)
--- NOTE | 2017-01-14 12:58 | ECHRPT ---
Indication: Atrial-fib CONCLUSIONS The left ventricular systolic function is mildly reduced with an estimated ejection fraction in the range of 45- 50%. Mild concentric left ventricular hypertrophy. Mild mitral valve regurgitation. Moderate aortic valve regurgitation. Mild aortic valve stenosis. There is trace tricuspid valve regurgitation. BP: 162 / 67 HR: 98 Rhythm: Atrial fibrillation MEASUREMENTS (Male / Female) Normal Values Technical Quality:Fair 2D ECHO LV Diastolic Diameter PLAX 5.4 cm 4.2 - 5.9 / 3.9 - 5.3 cm LV Systolic Diameter PLAX 4.1 cm IVS Diastolic Thickness 1.2 cm 0.6 - 1.0 / 0.6 - 0.9 cm LVPW Diastolic Thickness 1.2 cm 0.6 - 1.0 / 0.6 - 0.9 cm LV Relative Wall Thickness 0.4 LVOT Diameter 1.8 cm LA Systolic Diameter LX 5.2 cm 3.0 - 4.0 / 2.7 - 3.8 cm LV Ejection Fraction MOD 4C 48.1 % LV Cardiac Index MOD 4C 3063.8 cm/minm LV Ejection Fraction 4C AL 46.6 % LV Cardiac Index 4C AL 3090.7 cm/minm M-MODE Aortic Root Diameter MM 2.7 cm AV Cusp Separation MM 1.8 cm DOPPLER AV Peak Velocity 205.8 cm/s AV Peak Gradient 16.9 mmHg AV Mean Gradient 8.7 mmHg AV Velocity Time Integral 36.4 cm AI Peak Velocity 465.0 cm/s AI Peak Gradient 86.5 mmHg AI Pressure Half Time 346.0 ms LVOT Peak Velocity 116.0 cm/s LVOT Peak Gradient 5.4 mmHg LVOT Velocity Time Integral 20.0 cm LVOT Cardiac Index 2519.2 cm/minm AV Area Cont Eq vti 1.4 cm AV Area Cont Eq pk 1.4 cm MV Area PHT 3.6 cm LV E' Lateral Velocity 13.8 cm/s LV E' Septal Velocity 9.5 cm/s TR Peak Velocity 246.7 cm/s TR Peak Gradient 24.3 mmHg Right Atrial Pressure 10.0 mmHg Pulmonary Artery Systolic Pressu 34.3 mmHg Right Ventricular Systolic Press 34.3 mmHg PV Peak Velocity 93.7 cm/s PV Peak Gradient 3.5 mmHg FINDINGS LEFT VENTRICLE The left ventricular systolic function is mildly reduced with an estimated ejection fraction in the range of 45- 50%. Normal left ventricular size. Mild concentric left ventricular hypertrophy. No regional wall motion abnormalities are present. RIGHT VENTRICLE The right ventricular size is normal. The right ventricular systoilc function is mildly decreased. A pacemaker wire is noted. LEFT ATRIUM The left atrial size is [id number] dilated. RIGHT ATRIUM The right atrial size is moderately dilated. ATRIAL SEPTUM Normal atrial septal thickness. AORTA The aortic root and proximal ascending aorta are normal in size on limited imaging. MITRAL VALVE Structurally normal mitral valve. Mild mitral annular calcification. Mild mitral valve regurgitation. No mitral valve stenosis. AORTIC VALVE Trileaflet aortic valve. Mild thickening of the aortic valve leaflets. Moderate aortic valve regurgitation. Mild aortic valve stenosis. TRICUSPID VALVE Structurally normal tricuspid valve. There is trace tricuspid valve regurgitation. The estimated pulmonary arterial pressure is 55 mmHg. PULMONARY VALVE No pulmonary valve regurgitation or stenosis. VESSELS The inferior vena cava is normal in size. PERICARDIUM No pericardial effusion. Ignacio Witt DO (Electronically Signed) Final Date:14 January 2017 12:58
--- NOTE | 2017-01-14 14:55 | PD.CONS ---
HPI Service Cardiology Consult Requested By Dr Stephenson Reason for Consult CHF, afib, elevated troponin Primary Care Physician Adarsh Sawyer, DO History of Present Illness The patient is an 81 year old male known to our practice with a history of diastolic CHF, history of recent bilateral thoracentesis at [facility] without fluid or pathology studies, atrial fibrillation, stroke, moderate AR, PAD and carotid stenosis. Other notable history CKD. The patient presented to the hospital for SOB and orthopnea. Work up reveals CHF exacerbation, respiratory insufficiency, pneumonia, elevated troponin and subtherapeutic INR. He denies medication non compliance. Today, he states that he feels better compared to yesterday, but continues to have SOB and cough. (Aurelia Owens) Review of Systems Consitutional: COMPLAINS OF: Fatigue, DENIES: Fever, Chills, Weight gain, Weight loss Eyes: DENIES: Amaurosis Fugax, Change in vision HEENT: DENIES: Lightheadedness, Change in hearing Respiratory: COMPLAINS OF: Cough, Shortness of breath, DENIES: See HPI, Snoring , Wheezing, Sputum production Cardiovascular: DENIES: See HPI, Chest pain, Palpitations, Syncope, Tachycardia Gastrointestinal: DENIES: Nausea, Vomiting, Change in bowel habits, Reflux, Bloody stools, Melena Genitourinary: DENIES: Urinary incontinence, Difficulty voiding Integumentary: DENIES: Rash Neurologic: DENIES: Tingling or numbness, Memory problems, Poor Balance, Stroke symptoms Musculoskeletal: DENIES: Joint pain, Muscle pain, Limited range of motion, Back pain Psychiatric: DENIES: Anxiety, Depression, Sleep disturbances Hematologic: DENIES: Bruising tendencies, Bleeding tendencies Endocrine: DENIES: Weight gain, Weight loss, Thyroid disease (Aurelia Owens ) Past Family Social History Allergies: Coded Allergies: No Known Allergies (Unverified , 12/10/16) Past Medical History See HPI Past Surgical History Right and left thoracentesis 06/13/2016 and back surgery 03/2012 Iliac stent 2009 Heart cath 2008 non obstructive ASHD SSS pacemaker 1995 with generator change out 2008 Reported Medications Reported Meds & Active Scripts Active Reported Albuterol Neb (Albuterol Sulfate) 2.5 Mg/3 Ml Neb 2.5 Mg NEB Q4HR NEB While awake Symbicort Inh (Budesonide/Formoterol Fumarate) 80-4.5 Mcg/Act Aero 2 Puff INH Q12HR Gabapentin 600 Mg Tab 600 Mg PO BID Atelvia (Risedronate) 35 Mg Tabdr 35 Mg PO Q7D Warfarin 4 Mg Tab 4 Mg PO HS Toprol XL (Metoprolol Succinate) 200 Mg Tab 200 Mg PO HS Synthroid (Levothyroxine Sodium) 137 Mcg Tab 137 Mcg PO DAILY Lisinopril 40 Mg Tab 40 Mg PO DAILY Lasix (Furosemide) 40 Mg Tab 40 Mg PO BID Cymbalta DR (Duloxetine HCl) 60 Mg Capdr 60 Mg PO BID Cardura (Doxazosin Mesylate) 2 Mg Tab 2 Mg PO HS Active Ordered Medications Current Medications Medications (Trade) Dose Ordered Sig/Suzie Route Start Time Stop Time Status Last Admin (NS Flush) 2 ml UNSCH PRN IV FLUSH 01/13/17 16:00 (NS Flush) 2 ml BID IV FLUSH 01/13/17 21:00 01/14/17 08:37 (Tylenol) 650 mg Q4H PRN PO 01/13/17 16:00 (Zofran Inj) 4 mg Q6H PRN IVP 01/13/17 16:00 (Narcan Inj) 0.4 mg UNSCH PRN IV PUSH 01/13/17 16:00 (Aspirin) 325 mg DAILY PO 01/15/17 09:00 (Nitrostat Sl) 0.4 mg Q5M PRN SL 01/13/17 16:00 (KCl) 20 meq DAILY PO 01/14/17 09:00 01/14/17 08:39 (Symbicort 80-4.5 Mcg Inh) 2 puff Q12HR INH 01/13/17 21:00 01/14/17 08:42 (Cardura) 2 mg HS PO 01/13/17 21:00 01/13/17 20:55 (Cymbalta Dr) 60 mg BID PO 01/13/17 21:00 01/14/17 08:41 (Neurontin) 600 mg BID PO 01/13/17 21:00 01/14/17 08:38 (Toprol Xl) 200 mg HS PO 01/13/17 21:00 01/13/17 20:56 (Coumadin) 4 mg HS PO 01/13/17 21:00 01/13/17 20:55 (Synthroid) 112 mcg DAILY@0600 PO 01/14/17 06:00 01/14/17 08:37 (Prinivil) 40 mg DAILY PO 01/14/17 09:00 01/14/17 08:38 (Lovenox Inj) 80 mg Q12H SQ 01/13/17 18:00 01/14/17 06:00 Miscellaneous Information ALL NURSING DEPARTME... UNSCH PRN OTHER 01/13/17 21:00 01/14/17 20:59 (Synthroid) 25 mcg DAILY@0600 PO 01/14/17 06:00 01/14/17 06:00 Pharmacy Profile Note 0 ml @ 0 mls/hr UNSCH OTHER 01/14/17 08:30 (Lasix Inj) 20 mg BID@09,18 IV PUSH 01/14/17 09:00 (Duoneb Neb) 1 ampule Q6HR WHILE AWAKE NEB NEB 01/14/17 14:00 01/14/17 12:22 (Duoneb Neb) 1 ampule Q2HR NEB PRN NEB 01/14/17 09:45 Ceftriaxone Sodium 1000 mg/ Sodium Chloride 100 ml @ 200 mls/hr Q24H IV 01/14/17 11:00 01/14/17 10:41 (Zithromax) 500 mg Q24H PO 01/14/17 10:00 01/14/17 10:41 Family History non contributory Social History lives with , non smoker, no ETOH (Aurelia Owens) Physical Exam Vital Signs Vital Signs Date Time Temp Pulse Resp B/P (MAP) Pulse Ox O2 Delivery O2 Flow Rate FiO2 01/14/17 13:00 91 01/14/17 12:00 87 01/14/17 12:00 98.2 82 19 156/82 (106) 92 01/14/17 11:00 85 01/14/17 10:00 82 01/14/17 09:00 86 01/14/17 08:51 92 Nasal Cannula 4.00 01/14/17 08:00 100.4 80 20 162/67 (98) 93 01/14/17 07:15 73 01/14/17 04:00 98.3 77 20 145/64 (91) 01/14/17 00:00 74 01/13/17 23:52 98.2 85 20 145/71 (95) 96 01/13/17 23:23 89 16 138/64 (88) 98 Nasal Cannula 3.00 01/13/17 23:10 96 16 163/72 (102) 98 Nasal Cannula 3.00 01/13/17 22:20 97 Nasal Cannula 4.00 01/13/17 21:01 96 16 156/72 (100) 98 Nasal Cannula 2.00 01/13/17 19:17 98 16 97 01/13/17 19:17 98 16 146/77 (100) 97 Room Air 01/13/17 17:37 104 18 160/73 (102) 95 Nasal Cannula 4.00 01/13/17 16:58 107 18 178/98 (124) 94 Nasal Cannula 4.00 01/13/17 15:45 106 18 158/87 (110) 92 Nasal Cannula 4.00 Physical Exam GENERAL: Elderly male in [facility] SKIN: Warm and dry. HEAD: Atraumatic. Normocephalic. EYES: Pupils equal and round. No scleral icterus. ENT: No nasal bleeding or discharge. NECK: Trachea midline. CARDIOVASCULAR: Irreg irreg, PPM RESPIRATORY: Bilateral rales and rhonchi, nasal cannula GASTROINTESTINAL: Abdomen soft, non-tender, nondistended. MUSCULOSKELETAL: Extremities without clubbing, cyanosis, or edema. No obvious deformities. NEUROLOGICAL: Awake and alert. No obvious cranial nerve deficits. Motor grossly within normal limits. Five out of 5 muscle strength in the arms and legs. Normal speech. PSYCHIATRIC: Appropriate mood and affect; insight and judgment normal. Laboratory Laboratory Tests Test 01/13/17 14:35 01/13/17 16:51 01/13/17 21:00 01/14/17 08:02 Urine Color YELLOW Urine Turbidity CLEAR Urine pH 6.0 Urine Specific [place] 1.014 Urine Protein 300 OR GREATER Urine Glucose (UA) NEG Urine Ketones NEG Urine Occult Blood MOD Urine Nitrite NEG Urine Bilirubin NEG Urine Leukocyte Esterase NEG Urine RBC 0-3 Urine Squamous Epithelial Cells 0-5 Urine Bacteria RARE Urine Granular Casts 3-5 Microscopic Urinalysis Comment CULT NOT INDICATED Magnesium Level 2.1 Total Creatine Kinase 287 248 220 Troponin I 0.98 0.93 0.82 White Blood Count 7.6 Red Blood Count 4.02 Hemoglobin 11.5 Hematocrit 35.6 Mean Corpuscular Volume 88.6 Mean Corpuscular Hemoglobin 28.6 Mean Corpuscular Hemoglobin Concent 32.2 Red Cell Distribution Width 16.4 Platelet Count 206 Mean Platelet Volume 8.5 Neutrophils (%) (Auto) 86.4 Lymphocytes (%) (Auto) 6.7 Monocytes (%) (Auto) 6.5 Eosinophils (%) (Auto) 0.3 Basophils (%) (Auto) 0.1 Neutrophils # (Auto) 6.5 Lymphocytes # (Auto) 0.5 Monocytes # (Auto) 0.5 Eosinophils # (Auto) 0.0 Basophils # (Auto) 0.0 CBC Comment DIFF FINAL Differential Comment Blood Urea Nitrogen 24 Creatinine 1.32 Random Glucose 78 Calcium Level 8.1 Sodium Level 139 Potassium Level 3.5 Chloride Level 100 Carbon Dioxide Level 31.0 Anion Gap 8 Estimat Glomerular Filtration Rate 52 Date/Time Source Procedure Growth Status 01/13/17 14:18 Blood Peripheral Aerobic Blood Culture - Preliminary NO GROWTH IN 1 DAY Resulted 01/13/17 14:18 Blood Peripheral Anaerobic Blood Culture - Preliminary NO GROWTH IN 1 DAY Resulted (Aurelia Owens) Result Diagram: 01/14/17 0802 01/14/17 0802 Imaging Last 72 hours Impressions Chest X-Ray 01/14/17 0000 Signed Impressions: Service Date/Time: Saturday, January 14, 2017 08:53 - CONCLUSION: Interval improvement with less interstitial edema. Trace fluid on the right. Alvaro Garcia MD FACR Chest X-Ray 01/13/17 1340 Signed Impressions: Service Date/Time: Friday, January 13, 2017 13:50 - CONCLUSION: 1. Cardiomegaly and findings of congestive heart failure. This is new when compared with the prior exam. Norman Potts MD (Aurelia Owens) Assessment and Plan Assessment and Plan Acute diastolic CHF exacerbation Pneumonia SOB and respiratory insufficiency due to above Atrial fibrillation on coumadin. INR subtherapeutic on admission Elevated troponin without CP. Likely exacerbated by CHF and hypoxia CKD Moderate AR Decreased LV function. EF 45-50% SSS s/p PPM PLAN: Continue diuresis and antibiotics Resume coumadin. The patient's INR was subtherapeutic on arrival. We will continue to follow with you The patient was seen and evaluated by Dr Wick who completed face to face encounter and physical exam and participated in evaluation and management. (Aurelia Owens) Assessment and Plan The exam, history, and the medical decision-making described in the above note were completed with the assistance of the mid-level provider. I reviewed and agree with the findings presented. I attest that I had a [id number] encounter with the patient on the same day, and personally performed and documented my assessment and findings in the medical record. Will treat CHF, reviewed with pt in detail. Question compliance given normal inr (Raad Wick MD) Aurelia Owens Jan 14, 2017 14:55 Raad Wick MD Jan 15, 2017 10:17
--- NOTE | 2017-01-14 18:03 | EKG ---
Date Performed: 01/13/2017 Time Performed: 13:29:14 PTAGE: 81 years EKG: ATRIAL FIBRILLATION NONSPECIFIC ST & T-WAVE ABNORMALITY When compared to previous tracing, patient has developed a rapid Ventricular response to the atrial fibrillation, it is now over riding The pacemaker so the tracings are not directly comparable. ABNORMAL RHYTHM ECG PREVIOUS TRACING : 12/10/2016 09.19 DOCTOR: Ada Bernstein Interpretating Date/Time 01/14/2017 18:02:44
[2017-01-14] MEDS: METOPROLOL SUCCINATE 50 MG EXTENDED RELEASE TAB PO SCH (20:29)
[2017-01-14] MEDS: WARFARIN SOD 4 MG TAB PO SCH (20:29)
[2017-01-14] MEDS: DOXAZOSIN MESYLATE 2 MG TAB PO SCH (20:30)
[2017-01-15] VITALS (26 sets, daily range): BP systolic 115–151; BP diastolic 56–67; PULSE 64–84; RESP 14–21; TEMP 97.9–99.9; O2SAT 92–95
[2017-01-15 04:50] LABS: AUTOMATED NEUTROPHIL # 5.7 TH/MM3 (1.8-7.7); BASOPHIL % 0.3 % (0.0-2.0); EOSINOPHIL % 0.2 % (0.0-4.0); HEMATOCRIT 34.6 % (39.0-51.0); HEMO FLAGS DIFF FINAL; LYMPH % 10.2 % (9.0-44.0); LYMPHOCYTE # 0.7 TH/MM3 (1.0-4.8); MEAN CELL VOLUME 88.6 FL (80.0-100.0); MEAN CORPUSCULAR HGB CONC 32.8 % (32.0-36.0); MONO % 7.1 % (0.0-8.0); NEUT % 82.2 % (16.0-70.0); PLATELET COUNT 198 TH/MM3 (150-450); RED CELL DISTRIBUTION WIDTH 16.2 % (11.6-17.2); WHITE BLOOD COUNT 6.9 TH/MM3 (4.0-11.0)
[2017-01-15 04:55] LABS: INTERNATIONAL NORMALIZED RATIO 1.4 RATIO; PROTHROMBIN TIME - PATIENT 13.7 SEC (9.8-11.6)
[2017-01-15 05:16] LABS: BICARBONATE 28.5 MEQ/L (21.0-32.0); POTASSIUM 3.5 MEQ/L (3.5-5.1)
[2017-01-15] MEDS: LEVOTHYROXINE SODIUM 25 MCG TAB PO SCH (06:27)
[2017-01-15] MEDS: LEVOTHYROXINE SODIUM 112 MCG TAB PO SCH (06:27)
[2017-01-15] MEDS: ENOXAPARIN SODIUM 80 MG/0.8 ML SYRINGE SQ SCH ×2 (06:30→18:37)
[2017-01-15] MEDS: RESP: ALBUTEROL 2.5 MG/IPRATROPIUM 0.5 MG NEB (SCH) NEB ×3 (08:43→20:35)
[2017-01-15] MEDS: BUDESONIDE-FORMOTEROL 80/4.5 MCG INHALER INH SCH ×2 (09:57→20:12)
[2017-01-15] MEDS: DULoxetine HCl DR 60 MG CAP PO SCH ×2 (09:57→20:11)
[2017-01-15] MEDS: POTASSIUM CHLORIDE 20 MEQ CONTROLLED RELEASE TAB PO SCH (09:57)
[2017-01-15] MEDS: FUROSEMIDE 20 MG/2 ML VIAL IV PUSH SCH ×2 (09:57→18:37)
[2017-01-15] MEDS: GABAPENTIN 300 MG CAP PO SCH ×2 (09:58→20:11)
[2017-01-15] MEDS: ASPIRIN 325 MG TAB PO SCH (09:58)
[2017-01-15] MEDS: SODIUM CHLORIDE 0.9% FLUSH 10 ML FLUSH IV FLUSH SCH ×2 (09:58→20:11)
--- NOTE | 2017-01-15 10:03 | PD.CARD.PN ---
Subjective Subjective Remarks The patient states he is breathing easier. Still has SOB, coughing and productive cough with light yellow sputum. He does not have difficultly clearing secretions. No CP or palpitations. He had a short run of SVT. Objective Medications Current Medications Medications (Trade) Dose Ordered Sig/Suzie Route Start Time Stop Time Status Last Admin (NS Flush) 2 ml UNSCH PRN IV FLUSH 01/13/17 16:00 (NS Flush) 2 ml BID IV FLUSH 01/13/17 21:00 01/14/17 20:30 (Tylenol) 650 mg Q4H PRN PO 01/13/17 16:00 (Zofran Inj) 4 mg Q6H PRN IVP 01/13/17 16:00 (Narcan Inj) 0.4 mg UNSCH PRN IV PUSH 01/13/17 16:00 (Aspirin) 325 mg DAILY PO 01/15/17 09:00 (Nitrostat Sl) 0.4 mg Q5M PRN SL 01/13/17 16:00 (KCl) 20 meq DAILY PO 01/14/17 09:00 01/14/17 08:39 (Symbicort 80-4.5 Mcg Inh) 2 puff Q12HR INH 01/13/17 21:00 01/14/17 20:30 (Cardura) 2 mg HS PO 01/13/17 21:00 01/14/17 20:30 (Cymbalta Dr) 60 mg BID PO 01/13/17 21:00 01/14/17 20:29 (Neurontin) 600 mg BID PO 01/13/17 21:00 01/14/17 20:30 (Toprol Xl) 200 mg HS PO 01/13/17 21:00 01/14/17 20:29 (Coumadin) 4 mg HS PO 01/13/17 21:00 01/14/17 20:29 (Synthroid) 112 mcg DAILY@0600 PO 01/14/17 06:00 01/15/17 06:27 (Prinivil) 40 mg DAILY PO 01/14/17 09:00 01/14/17 08:38 (Lovenox Inj) 80 mg Q12H SQ 01/13/17 18:00 01/15/17 06:30 (Synthroid) 25 mcg DAILY@0600 PO 01/14/17 06:00 01/15/17 06:27 Pharmacy Profile Note 0 ml @ 0 mls/hr UNSCH OTHER 01/14/17 08:30 (Lasix Inj) 20 mg BID@09,18 IV PUSH 01/14/17 09:00 01/14/17 17:18 (Duoneb Neb) 1 ampule Q6HR WHILE AWAKE NEB NEB 01/14/17 14:00 01/15/17 08:43 (Duoneb Neb) 1 ampule Q2HR NEB PRN NEB 01/14/17 09:45 Ceftriaxone Sodium 1000 mg/ Sodium Chloride 100 ml @ 200 mls/hr Q24H IV 01/14/17 11:00 01/14/17 10:41 (Zithromax) 500 mg Q24H PO 01/14/17 10:00 01/14/17 10:41 Vital Signs / I&O Vital Signs Date Time Temp Pulse Resp B/P (MAP) Pulse Ox O2 Delivery O2 Flow Rate FiO2 01/15/17 08:44 92 Nasal Cannula 4.00 01/15/17 08:00 98.2 70 14 125/61 (82) 93 01/15/17 06:01 68 01/15/17 05:03 75 01/15/17 04:14 78 01/15/17 04:14 99.1 72 20 133/60 (84) 93 01/15/17 03:03 72 01/15/17 02:09 71 01/15/17 01:02 84 01/15/17 00:32 77 01/15/17 00:32 99.9 82 20 138/65 (89) 92 01/14/17 23:41 79 01/14/17 22:34 84 01/14/17 21:10 90 01/14/17 20:15 100.5 99 21 167/75 (105) 91 01/14/17 20:15 100 01/14/17 20:15 93 01/14/17 19:59 95 Nasal Cannula 6.00 01/14/17 19:38 90 Nasal Cannula 4.00 01/14/17 19:30 100.5 99 21 167/75 (105) 91 01/14/17 19:30 93 01/14/17 18:00 86 01/14/17 17:00 83 01/14/17 16:00 90 01/14/17 16:00 100.3 90 18 154/70 (98) 92 01/14/17 15:00 89 01/14/17 14:00 87 01/14/17 13:00 91 01/14/17 12:00 87 01/14/17 12:00 98.2 82 19 156/82 (106) 92 01/14/17 11:00 85 01/14/17 10:00 82 I/O 01/14/17 01/14/17 01/14/17 01/15/17 01/15/17 01/15/17 07:00 15:00 23:00 07:00 15:00 23:00 Intake Total 240 ml 100 ml 720 ml 240 ml Output Total 550 ml 500 ml 500 ml Balance -310 ml 100 ml 220 ml -260 ml Intake Oral 240 ml 720 ml 240 ml IV Total 100 ml Output Urine Total 550 ml 500 ml 500 ml Stool Total 0 ml # Bowel Movements 1 0 Physical Exam GENERAL: Sleeping, easy to arouse. SKIN: Warm and dry. HEAD: Normocephalic. EYES: No scleral icterus. No injection or drainage. NECK: Supple, trachea midline. CARDIOVASCULAR: Regular rate and rhythm RESPIRATORY: Bilateral rales and rhonchi and exp wheezing GASTROINTESTINAL: Abdomen soft, non-tender, nondistended. MUSCULOSKELETAL: No cyanosis, or edema. BACK: Nontender without obvious deformity. Laboratory Laboratory Tests Test 01/15/17 04:33 White Blood Count 6.9 TH/MM3 Red Blood Count 3.90 MIL/MM3 Hemoglobin 11.3 GM/DL Hematocrit 34.6 % Mean Corpuscular Volume 88.6 FL Mean Corpuscular Hemoglobin 29.0 PG Mean Corpuscular Hemoglobin Concent 32.8 % Red Cell Distribution Width 16.2 % Platelet Count 198 TH/MM3 Mean Platelet Volume 8.5 FL Neutrophils (%) (Auto) 82.2 % Lymphocytes (%) (Auto) 10.2 % Monocytes (%) (Auto) 7.1 % Eosinophils (%) (Auto) 0.2 % Basophils (%) (Auto) 0.3 % Neutrophils # (Auto) 5.7 TH/MM3 Lymphocytes # (Auto) 0.7 TH/MM3 Monocytes # (Auto) 0.5 TH/MM3 Eosinophils # (Auto) 0.0 TH/MM3 Basophils # (Auto) 0.0 TH/MM3 CBC Comment DIFF FINAL Differential Comment Prothrombin Time 13.7 SEC Prothromb Time International Ratio 1.4 RATIO Blood Urea Nitrogen 27 MG/DL Creatinine 1.29 MG/DL Random Glucose 83 MG/DL Calcium Level 8.1 MG/DL Sodium Level 136 MEQ/L Potassium Level 3.5 MEQ/L Chloride Level 100 MEQ/L Carbon Dioxide Level 28.5 MEQ/L Anion Gap 8 MEQ/L Estimat Glomerular Filtration Rate 54 ML/MIN Imaging Last 72 hours Impressions Chest X-Ray 01/14/17 0000 Signed Impressions: Service Date/Time: Saturday, January 14, 2017 08:53 - CONCLUSION: Interval improvement with less interstitial edema. Trace fluid on the right. Alvaro Garcia MD FACR Chest X-Ray 01/13/17 1340 Signed Impressions: Service Date/Time: Friday, January 13, 2017 13:50 - CONCLUSION: 1. Cardiomegaly and findings of congestive heart failure. This is new when compared with the prior exam. Norman Potts MD Assessment and Plan Assessment and Plan Acute diastolic CHF exacerbation Pneumonia SOB and respiratory insufficiency due to above Atrial fibrillation on coumadin. INR subtherapeutic on admission Elevated troponin without CP. Likely exacerbated by CHF and hypoxia CKD Moderate AR Decreased LV function. EF 45-50% SSS s/p PPM PLAN: Continue diuresis and antibiotics Coumadin/lovenox bridge Agree with fluid restriction. The patient is improving. We will plan to follow up in the office in 1-2 weeks after discharge. The patient was seen and evaluated by Dr Wick who completed face to face encounter and physical exam and participated in evaluation and management. Aurelia Owens Jan 15, 2017 10:03
[2017-01-15] MEDS: LISINOPRIL 20 MG TAB PO SCH (10:31)
[2017-01-15] MEDS: AZITHROMYCIN 250 MG TAB PO SCH (10:39)
[2017-01-15] MEDS: cefTRIAXone INJ 1,000 MG in SODIUM CHLORIDE 0.9% INJ 100 ML IV SCH (10:40)
--- NOTE | 2017-01-15 10:52 | HHI.PR ---
Subjective Remarks Patient states he is feeling better. Less short of breath about 50% improved. Cough improving. Afebrile. Objective Vitals Vital Signs Date Time Temp Pulse Resp B/P (MAP) Pulse Ox O2 Delivery O2 Flow Rate FiO2 01/15/17 08:44 92 Nasal Cannula 4.00 01/15/17 08:00 98.2 70 14 125/61 (82) 93 01/15/17 06:01 68 01/15/17 05:03 75 01/15/17 04:14 78 01/15/17 04:14 99.1 72 20 133/60 (84) 93 01/15/17 03:03 72 01/15/17 02:09 71 01/15/17 01:02 84 01/15/17 00:32 77 01/15/17 00:32 99.9 82 20 138/65 (89) 92 01/14/17 23:41 79 01/14/17 22:34 84 01/14/17 21:10 90 01/14/17 20:15 100.5 99 21 167/75 (105) 91 01/14/17 20:15 100 01/14/17 20:15 93 01/14/17 19:59 95 Nasal Cannula 6.00 01/14/17 19:38 90 Nasal Cannula 4.00 01/14/17 19:30 100.5 99 21 167/75 (105) 91 01/14/17 19:30 93 01/14/17 18:00 86 01/14/17 17:00 83 01/14/17 16:00 90 01/14/17 16:00 100.3 90 18 154/70 (98) 92 01/14/17 15:00 89 01/14/17 14:00 87 01/14/17 13:00 91 01/14/17 12:00 87 01/14/17 12:00 98.2 82 19 156/82 (106) 92 01/14/17 11:00 85 I/O 01/14/17 01/14/17 01/14/17 01/15/17 01/15/17 01/15/17 07:00 15:00 23:00 07:00 15:00 23:00 Intake Total 240 ml 100 ml 720 ml 240 ml Output Total 550 ml 500 ml 500 ml Balance -310 ml 100 ml 220 ml -260 ml Intake Oral 240 ml 720 ml 240 ml IV Total 100 ml Output Urine Total 550 ml 500 ml 500 ml Stool Total 0 ml # Bowel Movements 1 0 Result Diagram: 01/15/1743201/15/17432 Objective Remarks GENERAL: Well-nourished, well-developed very pleasant elderly male patient. SKIN: Warm and dry. HEAD: Normocephalic. EYES: No scleral icterus. No injection or drainage. NECK: Supple, trachea midline. No JVD or lymphadenopathy. CARDIOVASCULAR: Irregularly irregular rate and rhythm without murmurs, gallops, or rubs. RESPIRATORY: Breath sounds equal bilaterally. Positive crackles bilaterally. No accessory muscle use. GASTROINTESTINAL: Abdomen soft, non-tender, nondistended. EXTREMITIES: No peripheral edema. NEUROLOGICAL: Awake, alert, and oriented x 3. Non-focal. A/P Problem List: (1) Acute exacerbation of CHF (congestive heart failure) ICD Code: I50.9 - Heart failure, unspecified Status: Acute (2) Hypokalemia ICD Code: E87.6 - Hypokalemia Status: Acute (3) HTN (hypertension) ICD Code: I10 - Essential (primary) hypertension (4) CAP (community acquired pneumonia) ICD Code: J18.9 - Pneumonia, unspecified organism (5) Acute respiratory failure ICD Code: J96.00 - Acute respiratory failure, unspecified whether with hypoxia or hypercapnia (6) COPD (chronic obstructive pulmonary disease) ICD Code: J44.9 - Chronic obstructive pulmonary disease, unspecified (7) Non-ST elevation myocardial infarction (NSTEMI), type 2 ICD Code: I21.A1 - Myocardial infarction type 2 Assessment and Plan -Acute resp failure - hypoxia requiring 4 L nasal cannula- due to the above - cont O2 via NC. -Acute systolic CHF - pulm edema - improving, continue diuresis, echo shows LVEF 45-50%, moderate aortic valve regurgitation, mild mitral valve regurgitation. -type 2 NSTEMI due to resp failure, infection- Dr. Wick consulted, recommends continued medical management. [facility] '09 showed mild CAD, moderate AVR. cont asa, metoprolol, start lipitor, check FLP. -Probable CAP - cough, fever x 1 week -continue rocephin, zithromax, DuoNeb's. -Hypokalemia -resolved. Continue kcl 20 meq daily and daily BMP while on diuretics. -COPD - possible exacerbation however no wheezing on exam. duonebs q 6 hr and q2 hr prn, symbicort and abx for now. Avoid Solu-Medrol due to the infection. -Afib, PPP - HR controlled, INR subtherapeutic - cont coumadin. INR 1.4 today. -CKD 3 -cr 1.3 monitor renal function while on diuretics. Creatinine stable today at 1.29. -HTN - normotensive today. cont metoprolol. monitor BP trends and adjust medications accordingly. -History of stroke 4 years ago without residual defects. -Hypothyroidism - cont synthroid 25 mcg daily. -chronic neck pain - cont cymbalta and neurontin. -DNR status Problem Qualifiers (1) Acute exacerbation of CHF (congestive heart failure): Qualified Codes: I50.23 - Acute on chronic systolic (congestive) heart failure Pau Stephenson MD Jan 15, 2017 10:52
[2017-01-15] MEDS: WARFARIN SOD 4 MG TAB PO SCH (20:11)
[2017-01-15] MEDS: METOPROLOL SUCCINATE 50 MG EXTENDED RELEASE TAB PO SCH (20:11)
[2017-01-15] MEDS: DOXAZOSIN MESYLATE 2 MG TAB PO SCH (20:11)
[2017-01-16] VITALS (19 sets, daily range): BP systolic 111–129; BP diastolic 55–78; PULSE 65–85; RESP 16–22; TEMP 98.2; O2SAT 92–95
[2017-01-16 05:58] LABS: INTERNATIONAL NORMALIZED RATIO 1.9 RATIO; PROTHROMBIN TIME - PATIENT 19.4 SEC (9.8-11.6)
[2017-01-16] MEDS: LEVOTHYROXINE SODIUM 25 MCG TAB PO SCH (06:06)
[2017-01-16] MEDS: LEVOTHYROXINE SODIUM 112 MCG TAB PO SCH (06:06)
[2017-01-16] MEDS: ENOXAPARIN SODIUM 80 MG/0.8 ML SYRINGE SQ SCH (06:09)
[2017-01-16 06:12] LABS: BICARBONATE 29.1 MEQ/L (21.0-32.0); POTASSIUM 3.7 MEQ/L (3.5-5.1)
--- NOTE | 2017-01-16 08:27 | PD.CARD.PN ---
Subjective Subjective Remarks The patient is improving. Less SOB today. Still productive cough. (Aurelia Owens) Objective Medications Current Medications Medications (Trade) Dose Ordered Sig/Suzie Route Start Time Stop Time Status Last Admin (NS Flush) 2 ml UNSCH PRN IV FLUSH 01/13/17 16:00 (NS Flush) 2 ml BID IV FLUSH 01/13/17 21:00 01/15/17 20:11 (Tylenol) 650 mg Q4H PRN PO 01/13/17 16:00 (Zofran Inj) 4 mg Q6H PRN IVP 01/13/17 16:00 (Narcan Inj) 0.4 mg UNSCH PRN IV PUSH 01/13/17 16:00 (Aspirin) 325 mg DAILY PO 01/15/17 09:00 01/15/17 09:58 (Nitrostat Sl) 0.4 mg Q5M PRN SL 01/13/17 16:00 (KCl) 20 meq DAILY PO 01/14/17 09:00 01/15/17 09:57 (Symbicort 80-4.5 Mcg Inh) 2 puff Q12HR INH 01/13/17 21:00 01/15/17 20:12 (Cardura) 2 mg HS PO 01/13/17 21:00 01/15/17 20:11 (Cymbalta Dr) 60 mg BID PO 01/13/17 21:00 01/15/17 20:11 (Neurontin) 600 mg BID PO 01/13/17 21:00 01/15/17 20:11 (Toprol Xl) 200 mg HS PO 01/13/17 21:00 01/15/17 20:11 (Synthroid) 112 mcg DAILY@0600 PO 01/14/17 06:00 01/16/17 06:06 (Prinivil) 40 mg DAILY PO 01/14/17 09:00 01/15/17 10:31 (Lovenox Inj) 80 mg Q12H SQ 01/13/17 18:00 01/16/17 06:09 (Synthroid) 25 mcg DAILY@0600 PO 01/14/17 06:00 01/16/17 06:06 Pharmacy Profile Note 0 ml @ 0 mls/hr UNSCH OTHER 01/14/17 08:30 (Lasix Inj) 20 mg BID@18 IV PUSH 01/14/17 09:00 01/15/17 18:37 (Duoneb Neb) 1 ampule Q6HR WHILE AWAKE NEB NEB 01/14/17 14:00 01/15/17 20:35 (Duoneb Neb) 1 ampule Q2HR NEB PRN NEB 01/14/17 09:45 01/16/17 01:42 Ceftriaxone Sodium 1000 mg/ Sodium Chloride 100 ml @ 200 mls/hr Q24H IV 01/14/17 11:00 01/15/17 10:40 (Zithromax) 500 mg Q24H PO 01/14/17 10:00 01/15/17 10:39 (Coumadin) 3 mg HS PO 01/16/17 21:00 Vital Signs / I&O Vital Signs Date Time Temp Pulse Resp B/P (MAP) Pulse Ox O2 Delivery O2 Flow Rate FiO2 01/16/17 07:00 98.2 72 22 129/78 (95) 92 01/16/17 06:12 69 01/16/17 05:18 79 01/16/17 04:25 76 01/16/17 03:34 80 01/16/17 03:25 98.2 77 16 129/68 (88) 92 01/16/17 02:21 85 01/16/17 01:52 94 Nasal Cannula 2.50 01/16/17 01:10 74 01/16/17 00:14 73 01/15/17 23:42 74 01/15/17 23:42 98.3 71 18 151/67 (95) 94 01/15/17 22:25 80 01/15/17 21:00 80 01/15/17 20:37 94 Nasal Cannula 4.00 01/15/17 20:15 72 01/15/17 19:58 98.6 76 21 127/61 (83) 94 01/15/17 19:58 82 01/15/17 18:00 70 01/15/17 17:00 69 01/15/17 16:00 74 01/15/17 15:00 97.9 71 14 145/65 (91) 95 01/15/17 15:00 73 01/15/17 14:00 70 01/15/17 13:00 64 01/15/17 12:00 64 01/15/17 11:00 72 01/15/17 11:00 64 16 115/56 (75) 95 01/15/17 10:00 72 01/15/17 09:00 72 01/15/17 08:44 92 Nasal Cannula 4.00 I/O 01/15/17 01/15/17 01/15/17 01/16/17 01/16/17 01/16/17 07:00 15:00 23:00 07:00 15:00 23:00 Intake Total 240 ml 100 ml 480 ml 480 ml Output Total 500 ml 325 ml 395 ml Balance -260 ml 100 ml 155 ml 85 ml Intake Oral 240 ml 480 ml 480 ml IV Total 100 ml Output Urine Total 500 ml 325 ml 395 ml # Bowel Movements 0 Physical Exam GENERAL: Sleeping, easy to arouse. SKIN: Warm and dry. HEAD: Normocephalic. EYES: No scleral icterus. No injection or drainage. NECK: Supple, trachea midline. JVD 3 cm CARDIOVASCULAR: Regular rate and rhythm RESPIRATORY: Bilateral rales and rhonchi and exp wheezing GASTROINTESTINAL: Abdomen soft, non-tender, nondistended. MUSCULOSKELETAL: No cyanosis, or edema. BACK: Nontender without obvious deformity. Laboratory Laboratory Tests Test 01/16/17 05:30 Prothrombin Time 19.4 SEC Prothromb Time International Ratio 1.9 RATIO Blood Urea Nitrogen 32 MG/DL Creatinine 1.18 MG/DL Random Glucose 80 MG/DL Calcium Level 8.1 MG/DL Sodium Level 138 MEQ/L Potassium Level 3.7 MEQ/L Chloride Level 101 MEQ/L Carbon Dioxide Level 29.1 MEQ/L Anion Gap 8 MEQ/L Estimat Glomerular Filtration Rate 59 ML/MIN Imaging Last 72 hours Impressions Chest X-Ray 01/14/17 0000 Signed Impressions: Service Date/Time: Saturday, January 14, 2017 08:53 - CONCLUSION: Interval improvement with less interstitial edema. Trace fluid on the right. Alvaro Garcia MD FACR Chest X-Ray 01/13/17 1340 Signed Impressions: Service Date/Time: Friday, January 13, 2017 13:50 - CONCLUSION: 1. Cardiomegaly and findings of congestive heart failure. This is new when compared with the prior exam. Norman Potts MD (Aurelia Owens) Assessment and Plan Assessment and Plan Acute diastolic CHF exacerbation Pneumonia SOB and respiratory insufficiency due to above Atrial fibrillation on coumadin. INR subtherapeutic on admission Elevated troponin without CP. Likely exacerbated by CHF and hypoxia CKD Moderate AR Decreased LV function. EF 45-50% SSS s/p PPM PLAN: Continue diuresis and antibiotics Coumadin/lovenox bridge. Stop lovenox with INR > 2.0. He will need close follow up of INR after discharge Agree with fluid restriction. The patient is improving. We will plan to follow up in the office in 1-2 weeks after discharge. The patient was seen and evaluated by Dr Wick who completed face to face encounter and physical exam and participated in evaluation and management. (Aurelia Owens) Assessment and Plan The exam, history, and the medical decision-making described in the above note were completed with the assistance of the mid-level provider. I reviewed and agree with the findings presented. I attest that I had a [id number] encounter with the patient on the same day, and personally performed and documented my assessment and findings in the medical record Overall better will see as o/p. (Raad Wick MD) Aurelia Owens Jan 16, 2017 08:27 Raad Wick MD Jan 16, 2017 14:21
[2017-01-16] MEDS: RESP: ALBUTEROL 2.5 MG/IPRATROPIUM 0.5 MG NEB (SCH) NEB ×2 (08:38→12:28)
[2017-01-16] MEDS: FUROSEMIDE 20 MG/2 ML VIAL IV PUSH SCH (09:55)
[2017-01-16] MEDS: SODIUM CHLORIDE 0.9% FLUSH 10 ML FLUSH IV FLUSH SCH (09:55)
[2017-01-16] MEDS: GABAPENTIN 300 MG CAP PO SCH (09:55)
[2017-01-16] MEDS: ASPIRIN 325 MG TAB PO SCH (09:55)
[2017-01-16] MEDS: BUDESONIDE-FORMOTEROL 80/4.5 MCG INHALER INH SCH (09:55)
[2017-01-16] MEDS: DULoxetine HCl DR 60 MG CAP PO SCH (09:56)
[2017-01-16] MEDS: LISINOPRIL 20 MG TAB PO SCH (09:56)
[2017-01-16] MEDS: POTASSIUM CHLORIDE 20 MEQ CONTROLLED RELEASE TAB PO SCH (09:56)
[2017-01-16] MEDS: AZITHROMYCIN 250 MG TAB PO SCH (09:56)
[2017-01-16] MEDS: cefTRIAXone INJ 1,000 MG in SODIUM CHLORIDE 0.9% INJ 100 ML IV SCH (10:01)
[2017-01-16] MEDS ORDERED: POTA-163 PO (12:39)
[2017-01-16] MEDS ORDERED: OXYGEN NAS.CANULA (12:39)
[2017-01-16] MEDS ORDERED: LEVA750T9 PO (12:39)
[2017-01-16] MEDS ORDERED: ENOX80P SQ (12:39)
[2017-01-16] MEDS ORDERED: FURO1TAB60 PO (12:41)
--- NOTE | 2017-01-16 12:42 | HHI.FF ---
Face to Face Verification Diagnosis: (1) COPD (chronic obstructive pulmonary disease) (2) CAP (community acquired pneumonia) (3) Atrial fibrillation (4) Congestive heart failure (CHF) Physical Therapy Order: Evaluate and Treat Home Health Nursing Order: Oxygen administration education Nursing assessment with vital signs Telehealth Instructions: Respiratory therapy I have seen patient Markos Carmona on 01/16/17. My clinical findings support the need for the requested home health care services because: Patient has SOB Deconditioned w/ increased weakness I certify that my clinical findings support that this patient is homebound because: Hx COPD- exertion dyspnea/weakness Need for psychosocial assistance Pau Stephenson MD Jan 16, 2017 12:42
--- NOTE | 2017-01-16 12:44 | HHI.DS ---
Discharge Summary Admission Date Jan 13, 2017 at 15:38 Discharge Date: Jan 16, 2017 Admitting Diagnosis CHF, ELEVATED TROPONIN (1) Acute exacerbation of CHF (congestive heart failure) ICD Code: I50.9 - Heart failure, unspecified Diagnosis: Principal Status: Acute (2) Hypokalemia ICD Code: E87.6 - Hypokalemia Status: Acute (3) HTN (hypertension) ICD Code: I10 - Essential (primary) hypertension (4) CAP (community acquired pneumonia) ICD Code: J18.9 - Pneumonia, unspecified organism Diagnosis: Principal (5) Acute respiratory failure ICD Code: J96.00 - Acute respiratory failure, unspecified whether with hypoxia or hypercapnia Diagnosis: Principal (6) COPD (chronic obstructive pulmonary disease) ICD Code: J44.9 - Chronic obstructive pulmonary disease, unspecified (7) Non-ST elevation myocardial infarction (NSTEMI), type 2 ICD Code: I21.A1 - Myocardial infarction type 2 (8) Atrial fibrillation ICD Code: I48.91 - Unspecified atrial fibrillation Procedures None Brief History - From Admission This patient is a very pleasant 81-year-old gentleman with a history of COPD and atrial fibrillation as well as congestive heart failure. Patient did come to the emergency room with at least a week of increasing dyspnea on exertion and orthopnea and cough. Over the last 24 hours he felt worse and his said he had to come to the hospital so he did. He returned from [place] about 2 days ago. He traveled there to bury his sister and had a hard time keeping up with his medications and staying on his cardiac diet. He presented now with increased work of breathing on exam/tachypnea as well as tachycardia and hypoxemia. He was 79% O2 on arrival and he has received aggressive diuresis in the emergency room with good improvement of his symptoms. There is no chest pain with the patient does have elevated blood pressure as well as elevated cardiac troponin. He has not had any edema. He has not had any syncopal events. Patient at this time feels much better although he still says he is not at his baseline. His oxygenation has improved and the patient is recommended for admission and further cardiac evaluation due to his symptoms of acute exacerbation of systolic heart failure and hypoxemic respiratory failure. CBC/BMP: 01/15/17 0433 01/16/17 0530 Significant Findings Laboratory Tests Test 01/13/17 14:00 01/13/17 14:35 01/13/17 16:51 01/13/17 21:00 Neutrophils (%) (Auto) 85.0 % (16.0-70.0) Lymphocytes (%) (Auto) 7.3 % (9.0-44.0) Neutrophils # (Auto) 8.7 TH/MM3 (1.8-7.7) Lymphocytes # (Auto) 0.7 TH/MM3 (1.0-4.8) Activated Partial Thromboplast Time 30.8 SEC (24.3-30.1) Blood Urea Nitrogen 22 MG/DL (7-18) Creatinine 1.40 MG/DL (0.60-1.30) Albumin 3.0 GM/DL (3.4-5.0) Aspartate Amino Transf (AST/SGOT) 39 U/L (15-37) Total Bilirubin 1.4 MG/DL (0.2-1.0) Potassium Level 2.8 MEQ/L (3.5-5.1) Estimat Glomerular Filtration Rate 49 ML/MIN (>89) Troponin I 1.08 NG/ML (0.02-0.05) 0.98 NG/ML (0.02-0.05) 0.93 NG/ML (0.02-0.05) B-Type Natriuretic Peptide 600 PG/ML (0-100) Urine Protein 300 OR GREATER mg/dL Urine Occult Blood MOD (NEG) Urine Bacteria RARE /hpf (NONE) Test 01/14/17 08:02 01/15/17 04:33 01/16/17 05:30 Red Blood Count 4.02 MIL/MM3 (4.50-5.90) 3.90 MIL/MM3 (4.50-5.90) Hemoglobin 11.5 GM/DL (13.0-17.0) 11.3 GM/DL (13.0-17.0) Hematocrit 35.6 % (39.0-51.0) 34.6 % (39.0-51.0) Neutrophils (%) (Auto) 86.4 % (16.0-70.0) 82.2 % (16.0-70.0) Lymphocytes (%) (Auto) 6.7 % (9.0-44.0) Lymphocytes # (Auto) 0.5 TH/MM3 (1.0-4.8) 0.7 TH/MM3 (1.0-4.8) Blood Urea Nitrogen 24 MG/DL (7-18) 27 MG/DL (7-18) 32 MG/DL (7-18) Creatinine 1.32 MG/DL (0.60-1.30) Calcium Level 8.1 MG/DL (8.5-10.1) 8.1 MG/DL (8.5-10.1) 8.1 MG/DL (8.5-10.1) Estimat Glomerular Filtration Rate 52 ML/MIN (>89) 54 ML/MIN (>89) 59 ML/MIN (>89) Troponin I 0.82 NG/ML (0.02-0.05) Prothrombin Time 13.7 SEC (9.8-11.6) 19.4 SEC (9.8-11.6) Imaging Last Impressions Chest X-Ray 01/14/17 0000 Signed Impressions: Service Date/Time: Saturday, January 14, 2017 08:53 - CONCLUSION: Interval improvement with less interstitial edema. Trace fluid on the right. Alvaro Garcia MD FACR PE at Discharge GENERAL: Well-nourished, well-developed very pleasant elderly male patient. SKIN: Warm and dry. HEAD: Normocephalic. EYES: No scleral icterus. No injection or drainage. NECK: Supple, trachea midline. No JVD or lymphadenopathy. CARDIOVASCULAR: Irregularly irregular rate and rhythm without murmurs, gallops, or rubs. RESPIRATORY: Breath sounds equal bilaterally. Positive crackles bilaterally. No accessory muscle use. GASTROINTESTINAL: Abdomen soft, non-tender, nondistended. EXTREMITIES: No peripheral edema. NEUROLOGICAL: Awake, alert, and oriented x 3. Non-focal. Hospital Course Patient was admitted to the hospital. His troponin did come back elevated. Patient was diuresed and treated for pneumonia. 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 He was felt to have a type II and STEMI from CHF and the infection. With diuresis and antibiotics the patient did improve. His oxygen was weaned down. Patient states he's feeling 85% better today. He would like to go home. His INR is subtherapeutic and he is on a Lovenox bridge. We will arrange home health care with telemetry health, home oxygen and he will continue on Lasix and will be prescribed Levaquin. Pt Condition on Discharge: Stable Discharge Disposition: Disch w/ Home Health Serv Discharge Time: > 30 minutes Discharge Instructions DIET: Follow Instructions for: Heart Healthy Diet Activities you can perform: Regular-No Restrictions Follow up Referrals: PCP Follow-up - 3-5 Days New Orders: PT/INR - 01/17/17 New Medications: Levofloxacin (Levaquin) 750 Mg Tablet 750 MG PO DAILY for Infection, #7 TAB 0 Refills Oxygen (O2) (Oxygen (O2)) Inha LITER NEETA.CANULA CONTINUOUS for Prevent Hypoxemia, #2 Oxygen Concentrator Portable Gaseous 2 L/min via Nasal Canula Continuous For 99 months Potassium Chloride ER (Potassium Chloride ER) 20 Meq Tab 20 MEQ PO DAILY for Electrolyte Replacement, #30 TAB 0 Refills Enoxaparin Inj (Lovenox Inj) 80 mg/0.8 ML Syr 80 MG SQ Q12H for blood thinner for 4 Days, INJECTION Discontinue when INR>2 Continued Medications: Albuterol Neb (Albuterol Neb) 2.5 Mg/3 Ml Neb 2.5 MG NEB Q4HR NEB for Breathing Treatment, #60 NEBULE 0 Refills While awake Budesonide-Formoterol Inh (Symbicort Inh) 80-4.5 Mcg/Act Aero 2 PUFF INH Q12HR for Asthma Management, #1 INHALER 0 Refills Doxazosin (Cardura) 2 Mg Tab 2 MG PO HS, #30 TAB [address] (Cymbalta DR) 60 Mg Capdr 60 MG PO BID, #30 CAP 0 Refills Furosemide (Lasix) 40 Mg Tab 40 MG PO BID for chf, #60 TAB 0 Refills (This prescription has been renewed) Gabapentin (Gabapentin) 600 Mg Tab 600 MG PO BID, #60 TAB 0 Refills Levothyroxine (Synthroid) 137 Mcg Tab 137 MCG PO DAILY for Thyroid, #30 TAB 0 Refills Lisinopril (Lisinopril) 40 Mg Tab 40 MG PO DAILY for Blood Pressure Management, #30 TAB 0 Refills Metoprolol Succinate ER 24 HR (Toprol XL) 200 Mg Tab 200 MG PO HS, #30 TAB [address] (Atelvia) 35 Mg Tabdr 35 MG PO Q7D for Manage Osteoporosis, #4 TAB 0 Refills Warfarin (Warfarin) 4 Mg Tab 4 MG PO HS for Blood Clot Prevention, #30 TAB 0 Refills Pau Stephenson MD Jan 16, 2017 12:44
[2017-01-16] MEDS ORDERED: WARFARIN SOD 3 MG TAB PO SCH (21:00)
== END 2017-01-16 16:45 | disposition home health service (06) | DRG 280 ==
LOC: PHED 13:25 → PHEDA 15:38 → HCPC 23:45
PROVIDERS: ADMIT Family Medicine; ATTEND Family Medicine
DX: I21.A1 Myocardial infarction type 2 (principal); J96.01 Acute respiratory failure with hypoxia; J18.9 Pneumonia, unspecified organism; I50.23 Acute on chronic systolic (congestive) heart failure; I13.0 Hypertensive heart and chronic kidney disease with heart failure and stage 1 through stage 4 chronic kidney disease, or unspecified chronic kidney disease; I50.9 Heart failure, unspecified; J44.0 Chronic obstructive pulmonary disease with (acute) lower respiratory infection; I49.5 Sick sinus syndrome; I47.1 Supraventricular tachycardia; J44.1 Chronic obstructive pulmonary disease with (acute) exacerbation; I08.0 Rheumatic disorders of both mitral and aortic valves; I48.91 Unspecified atrial fibrillation; N18.3 Chronic kidney disease, stage 3 (moderate); Z79.01 Long term (current) use of anticoagulants; E87.6 Hypokalemia; M48.00 Spinal stenosis, site unspecified; E03.9 Hypothyroidism, unspecified; Z87.891 Personal history of nicotine dependence; Z66 Do not resuscitate; Z86.73 Personal history of transient ischemic attack (TIA), and cerebral infarction without residual deficits; Z95.0 Presence of cardiac pacemaker; I25.10 Atherosclerotic heart disease of native coronary artery without angina pectoris; R79.1 Abnormal coagulation profile; G89.29 Other chronic pain; M54.2 Cervicalgia
CPT/HCPCS: 71010; 80048; 80053; 81001; 82550; 83735; 83880; 84484; 85025; 85610; 85730; 87040; 93005; 93306; 94620; 94640; 94664; 96374; J0696; J1650; J1940; J7613

== ENCOUNTER 2017-06-17 06:22 | Day surgery (SDC) | payer MEDICARE, OTHER ==
[~2017-06-17] VITALS: Ht 175.3 cm; Wt 81.8 kg
[~2017-06-17 06:22] MED LIST changes: +ALBU0.08 NEB; +ENOX80P SQ; -GABA300C5 PO; +GABA600T PO; -KRIL1000 PO; +LEVA750T9 PO; +OXYGEN NAS.CANULA; +POTA-163 PO; +SYMB80AE INH
[2017-06-17] MEDS ORDERED: METOPROLOL TARTRATE 25 MG TAB PO PRN (07:00)
[2017-06-17] MEDS ORDERED: SODIUM CHLORID 0.9% 500 ML IV PRN (07:00)
[2017-06-17] MEDS ORDERED: LACTATED RINGER'S 1000 ML IV PRN (07:00)
[2017-06-17] MEDS ORDERED: INSULIN HUMAN REGULAR 1,000 UNITS/10 ML VIAL SQ PRN (07:00)
[2017-06-17 07:15] VITALS: BP 129/71; PULSE 78; RESP 18; TEMP 97.7; O2SAT 100
[2017-06-17] MEDS ORDERED: APIX5TAB PO (07:41)
[2017-06-17 07:42] LABS: AUTOMATED NEUTROPHIL # 7.8 TH/MM3 (1.8-7.7); BASOPHIL # 0.1 TH/MM3 (0-0.2); BASOPHIL % 0.7 % (0.0-2.0); EOSINOPHIL # 0.2 TH/MM3 (0-0.4); EOSINOPHIL % 2.4 % (0.0-4.0); HEMATOCRIT 29.2 % (39.0-51.0); HEMOGLOBIN 9.6 GM/DL (13.0-17.0); LYMPH % 8.4 % (9.0-44.0); LYMPHOCYTE # 0.8 TH/MM3 (1.0-4.8); MEAN CELL VOLUME 85.1 FL (80.0-100.0); MEAN CORPUSCULAR HEMOGLOBIN 27.9 PG (27.0-34.0); MEAN CORPUSCULAR HGB CONC 32.8 % (32.0-36.0); MEAN PLATELET VOLUME 8.9 FL (7.0-11.0); MONO % 8.3 % (0.0-8.0); MONOCYTE # 0.8 TH/MM3 (0-0.9); NEUT % 80.2 % (16.0-70.0); PLATELET COUNT 488 TH/MM3 (150-450); RED BLOOD COUNT 3.44 MIL/MM3 (4.50-5.90); RED CELL DISTRIBUTION WIDTH 15.9 % (11.6-17.2); WHITE BLOOD COUNT 9.8 TH/MM3 (4.0-11.0)
[2017-06-17] MEDS ORDERED: OMEP40CA2 (07:42)
[2017-06-17] MEDS ORDERED: OMEP40CA2 PO (07:43)
[2017-06-17 07:55] LABS: INTERNATIONAL NORMALIZED RATIO 1.1 RATIO; PROTHROMBIN TIME - PATIENT 11.4 SEC (9.8-11.6)
[2017-06-17] MEDS ORDERED: SODIUM CHLOR 0.45% 1000 ML INJ 1,000 ML IV SCH (08:00)
--- NOTE | 2017-06-17 08:48 | MP ---
cc: Yolis Lagos MD DATE OF OPERATION: 06/17/2017 PROCEDURE PERFORMED: Fiberoptic bronchoscopy, flexible REASON FOR BRONCHOSCOPY: Mass and/or infiltrate right upper lung, rule out underlying malignancy, rule out chronic inflammatory process. PROCEDURE: Fiberoptic bronchoscopy performed via LMA. Vocal cords intact. Trachea moderately hyperemic. Jacqui sharp. Left main bronchus, left upper and lower lobes without obstructive pathology or mass lesion. Diffuse hyperemia noted. Right main stem bronchus patent. Right upper, middle, and lower lobes inspected. Diffuse hyperemia noted. No mass, no obstruction. Washings obtained from both sides of the tracheobronchial tree for routine TB, fungal culture and cytological exam. Bronchoscope was then introduced into the right upper lung. Cytologic brush biopsies right upper lobe obtained for cytological exam. Procedure well tolerated. The patient was transferred to the recovery in stable condition. IMPRESSION: 1. Moderate tracheal bronchitis. 2. No obstruction, no mass lesion. 3. Samples obtained as above. 4. Procedure well tolerated. 5. The patient transferred to the recovery in stable condition. Yolis Lagos MD [id number] , 08:38 AM , 08:47 AM
[2017-06-17 09:25] VITALS: BP 131/68; PULSE 66; RESP 18; TEMP 97.7; O2SAT 99
[2017-06-17] MEDS ORDERED: DO NOT ADM ANY ANTICOAGULANT DRUGS PRN (09:30)
[2017-06-17 09:55] VITALS: BP 130/60; PULSE 60; RESP 17; O2SAT 99
[2017-06-17 10:25] VITALS: BP 124/63; PULSE 82; RESP 18; O2SAT 99
[2017-06-17 11:00] VITALS: BP 120/64; PULSE 78; RESP 17; O2SAT 98
== END 2017-06-17 11:15 | disposition home or self-care (01) ==
LOC: HROP 06:22 → HRIP 06:26 → HROP 11:15
PROVIDERS: ATTEND Internal Medicine Sleep Medicine
DX: J40 Bronchitis, not specified as acute or chronic (principal); J44.9 Chronic obstructive pulmonary disease, unspecified; I48.91 Unspecified atrial fibrillation; I10 Essential (primary) hypertension; F17.200 Nicotine dependence, unspecified, uncomplicated
CPT/HCPCS: 31623; 85025; 85610; 85730; 87015; 87070; 87102; 87116; 87205; 87206; 88112; 88305

== ENCOUNTER 2017-06-26 13:51 | Emergency (ER) | payer MEDICARE, OTHER ==
[~2017-06-26] VITALS: Ht 175.3 cm; Wt 82.0 kg
[~2017-06-26 13:51] MED LIST changes: +APIX5TAB PO; -CARD2TAB PO; -ENOX80P SQ; -LEVA750T9 PO; +OMEP40CA2; +OMEP40CA2 PO; -POTA-163 PO; -WARF-20 PO
[2017-06-26 13:55] VITALS: BP 119/55; PULSE 64; RESP 16; TEMP 97.4; O2SAT 100
[2017-06-26] MEDS ORDERED: ADVA250A INH (14:29)
--- NOTE | 2017-06-26 14:30 | PD ---
HPI Chief Complaint: Head Injury Time Seen by Provider: 14:04 Travel History International Travel<30 days: No Contact w/Intl Traveler<30days: No Traveled to known affect area: No History of Present Illness HPI Patient is 81. 2 days ago he fell in his house somehow striking his head against a 6 foot tall piece of furniture for his cat, what is called a Tree. He struck the right temporal scalp upon the Tree and developed a small cephalohematoma which was very tender and has gradually been resolving since. Following the head trauma the patient developed diplopia. Diplopia is most noticeable with objects far away, for example a car approximately 1 block away appears to be double. He denies cephalgia in the ED. He is no numbness tingling or weakness involving the extremities. He takes Eliquis for A. fib. The patient saw an senior stereo compiler team lead in [place] today. There was concern there for a right-sided 6th cranial nerve palsy. Patient reports he can read a newspaper. PFSH Past Medical History Arthritis: Yes Autoimmune Disease: No Heart Rhythm Problems: Yes (AFIB S/P PACER) Cancer: Yes (skin cancer) Cardiovascular Problems: Yes (a fib pt thinks possible congestive heart problems) High Cholesterol: Yes Congestive Heart Failure: Yes COPD: Yes Cerebrovascular Accident: Yes (TIA) Diabetes: No Endocrine: Yes Gastrointestinal Disorders: No Glaucoma: No Genitourinary: No Hepatitis: No Hiatal Hernia: No Hypertension: Yes Immune Disorder: No Musculoskeletal: Yes (back and neck problems arthritis hx of spinal stenosis) Neurologic: Yes (stroke tia later on ) Psychiatric: No Reproductive: No Respiratory: Yes Thyroid Disease: Yes Past Surgical History Abdominal Surgery: No AICD: No Body Medical Devices: PACEMAKER Cardiac Surgery: Yes (pacemaker 1993) Ear Surgery: No Endocrine Surgery: No Eye Surgery: Yes (cataract surgery) Genitourinary Surgery: No Gynecologic Surgery: No Joint Replacement: Yes (left knee) Neurologic Surgery: Yes (right femoral by-pass) Oral Surgery: Yes ( t and a) Pacemaker: Yes (medtronic) Thoracic Surgery: No Other Surgery: Yes Social History Alcohol Use: Yes (couple of beers mostly in the evening) Tobacco Use: Yes (pt quit in 1976) Substance Use: No Allergies-Medications (Allergen,Severity, Reaction): Coded Allergies: No Known Allergies (Unverified , 5/17/18) Reported Meds & Prescriptions Reported Meds & Active Scripts Active Lasix (Furosemide) 40 Mg Tab 40 Mg PO BID Oxygen (O2) (Miscellaneous Medication) Inha Liter NEETA.CANULA CONTINUOUS Oxygen Concentrator Portable Gaseous 2 L/min via Nasal Canula Continuous For 99 months Reported Klonopin (Clonazepam) 0.5 Mg Tab 0.5 Mg PO HS Tamsulosin (Tamsulosin HCl) 0.4 Mg Cap 0.4 Mg PO HS Advair Diskus Inh (Fluticasone-Salmeterol Inh) 250-50 Mcg/Blist Aer 1 Puff INH BID Rinse mouth after use. Omeprazole 40 Mg Cap 40 Mg DAILY Eliquis (Apixaban) 5 Mg Tab 5 Mg PO BID Albuterol Neb (Albuterol Sulfate) 2.5 Mg/3 Ml Neb 2.5 Mg NEB Q4HR NEB While awake Gabapentin 600 Mg Tab 600 Mg PO BID Toprol XL (Metoprolol Succinate) 200 Mg Tab 100 Mg PO BID Synthroid (Levothyroxine Sodium) 137 Mcg Tab 137 Mcg PO DAILY Lisinopril 40 Mg Tab 40 Mg PO DAILY Cymbalta DR (Duloxetine HCl) 60 Mg Capdr 60 Mg PO BID Review of Systems Except as stated in HPI: all other systems reviewed are Neg General / Constitutional: No: Fever Physical Exam Narrative GENERAL: 81-year-old male well-nourished well-developed pleasant no acute distress Vital Signs Date Time Temp Pulse Resp B/P (MAP) Pulse Ox O2 Delivery O2 Flow Rate FiO2 06/26/17 13:55 97.4 64 16 119/55 (76) 100 SKIN: Warm and dry. HEAD: Atraumatic. Normocephalic. EYES: Gaze is conjugate. The pupils are equal round and reactive to light. Patient reports diplopia with both eyes open. With one open there is no diplopia. ENT: No nasal bleeding or discharge. Mucous membranes pink and moist. NECK: Trachea midline. No JVD. CARDIOVASCULAR: Regular rate and rhythm. RESPIRATORY: No accessory muscle use. Clear to auscultation. Breath sounds equal bilaterally. GASTROINTESTINAL: Abdomen soft, non-tender, nondistended. Hepatic and splenic margins not palpable. MUSCULOSKELETAL: Extremities without clubbing, cyanosis, or edema. No obvious deformities. NEUROLOGICAL: Awake and alert. No obvious cranial nerve deficits. Motor grossly within normal limits. Five out of 5 muscle strength in the arms and legs. Normal speech. PSYCHIATRIC: Appropriate mood and affect; insight and judgment normal. Data Data Last Documented VS Vital Signs Date Time Temp Pulse Resp B/P (MAP) Pulse Ox O2 Delivery O2 Flow Rate FiO2 06/26/17 15:23 65 14 141/68 (92) Nasal Cannula 2.00 06/26/17 14:18 100 06/26/17 13:[address] Brain W/O Iv Contrast(Rout) (06/26/17 14:13) Ed Discharge Order (06/26/17 16:04) MDM Medical Decision Making Medical Screen Exam Complete: Yes Emergency Medical Condition: Yes Medical Record Reviewed: Yes Differential Diagnosis Intracranial hemorrhage, ischemic stroke, lens dislocation Narrative Course The head CT is unremarkable. I placed a call personally to the referring physicians office at approximately 3:10 PM. At 3:25 PM I was informed that the classification officer would attempt to contact Dr. Mitchell. Patient has no neurologic deficit here aside from the diplopia. Overall the patient is quite well-appearing. His is also here. We discussed follow- up plans. Dr. Mitchell then called back at approximately 4:30 PM. Results were discussed and the patient was considered appropriate for discharge home with plan to follow-up with neurology. Diagnosis Primary Impression: Diplopia Referrals: Homa García MD as needed Adarsh Patino MD PhD call for appointment Med/Other Pt SpecificInfo: No Change to Meds Disposition: 01 DISCHARGE HOME Condition: Stable Naman Witt MD June 26, 2017 14:30
[2017-06-26] MEDS ORDERED: TAMS0.4C4 PO (14:31)
[2017-06-26] MEDS ORDERED: CLON.5 PO (14:32)
--- NOTE | 2017-06-26 15:01 | RADRPT ---
EXAM DATE/TIME: 06/26/2017 14:41 [facility] COMPARISON: No previous studies available for comparison. INDICATIONS : Trip and fall 6 days ago. Right temporal pain. Diplopia. Evaluate for hemorrhage. RADIATION DOSE: 51.75 CTDIvol (mGy) MEDICAL HISTORY : Cerebrovascular disease. Chronic obstructive pulmonary disease. Congestive heart failure.Hypertension . SURGICAL HISTORY : Pacemaker. ENCOUNTER: Initial ACUITY: 4 - 6 days PAIN SCALE: 4/10 LOCATION: Right cranial TECHNIQUE: Multiple contiguous axial images were obtained of the head. Using automated exposure control and adj ustment of the mA and/or kV according to patient size, radiation dose was kept as low as reasonably a chievable to obtain optimal diagnostic quality images. DICOM format image data is available electro nically for review and comparison. FINDINGS: CEREBRUM: The ventricles are normal for age. There is bilateral cortical atrophy. No evidence of midline shift , mass lesion, hemorrhage or acute infarction. No extra-axial fluid collections are seen. POSTERIOR FOSSA: The cerebellum and brainstem are intact. The 4th ventricle is midline. The cerebellopontine angle i s unremarkable. EXTRACRANIAL: The visualized portion of the orbits is intact. SKULL: The calvaria is intact. No evidence of skull fracture. CONCLUSION: 1. Bilateral cortical atrophy. 2. No acute intracranial hemorrhage. Alejo Blue MD on June 26, 2017 at 14:58 Board Certified Radiologist. This report was verified electronically.
[2017-06-26 15:23] VITALS: BP 141/68; PULSE 65; RESP 14
== END 2017-06-26 17:06 | disposition home or self-care (01) ==
LOC: PHED 13:51
DX: H53.2 Diplopia (principal); S09.90XA Unspecified injury of head, initial encounter; W01.190A Fall on same level from slipping, tripping and stumbling with subsequent striking against furniture, initial encounter; I48.91 Unspecified atrial fibrillation; E78.00 Pure hypercholesterolemia, unspecified; I10 Essential (primary) hypertension; E07.9 Disorder of thyroid, unspecified; Z86.73 Personal history of transient ischemic attack (TIA), and cerebral infarction without residual deficits; Z87.891 Personal history of nicotine dependence
CPT/HCPCS: 70450; 99283

== ENCOUNTER 2017-12-21 04:10 | Inpatient (IN) ==
[2017-12-21] MEDS ORDERED: MethylPREDNISolone Sod Succinate Inj 125 MG/2 ML Vial IV.PUSH ONE (04:19)
[2017-12-21 04:49] LABS: Baso # (Auto) 0.1 th/mm3 (0.0-0.2); Baso % (Auto) 0.4 % (0.0-2.0); Eos % (Auto) 0.4 % (0.0-4.0); Hematocrit 31.1 % (39.0-51.0); Hemoglobin 9.7 gm/dL (13.0-17.0); Lymph # (Auto) 0.4 th/mm3 (1.0-4.8); Lymph % (Auto) 3.4 % (9.0-44.0); Mean Corpuscular HGB Conc 31.4 % (32.0-36.0); Mean Corpuscular Hemoglobin 28.2 pg (27.0-34.0); Mean Platelet Volume 8.6 fL (7.0-11.0); Mono # (Auto) 1.2 th/mm3 (0.0-0.9); Mono % (Auto) 9.5 % (0.0-8.0); Neut # (Auto) 10.9 th/mm3 (1.8-7.7); Neut % (Auto) 86.3 % (16.0-70.0); Platelet Count 353 th/mm3 (150-450); Red Blood Count 3.45 mil/mm3 (4.50-5.90); Red Cell Distribution Width 15.3 % (11.6-17.2); White Blood Count 12.6 th/mm3 (4.0-11.0)
[2017-12-21 05:05] LABS: Albumin 2.6 g/dL (3.4-5.0); Anion Gap 10 meq/L (5-15); Aspartate Aminotransferase 14 U/L (15-37); Blood Urea Nitrogen 19 mg/dL (7-18); Calcium 8.5 mg/dL (8.5-10.1); Carbon Dioxide 29.7 meq/L (21.0-32.0); Chloride 104 meq/L (98-107); Glomerular Filtration Rate 57 mL/min (>89); Glucose,Random 104 mg/dL (74-106); Potassium 4.1 meq/L (3.5-5.1); Sodium 144 meq/L (136-145)
[2017-12-21 05:06] LABS: Alanine Aminotransferase 14 U/L (12-78)
[2017-12-21 05:10] LABS: Alkaline Phosphatase 123 U/L (45-117); Total Protein 7.3 g/dL (6.4-8.2)
--- NOTE | 2017-12-21 05:19 | ED ---
HPI General Chief Complaint: Respiratory Symptoms Stated Complaint: SOB Time Seen by Provider: 12/21/17 04:19 History of Present Illness HPI Narrative: Patient is an 82-year-old male coming from home where he was having difficulty breathing Desatting to 80 on room air ...paramedics found him to be tachypneic and they placed him on 100% nonrebreather which increased his saturation to 90 ,,, patient has a history of COPD , he has nebulizers at home is on home O2 3 L, however it was not helping with his current shortness of breath. the paramedics said they did an axillary temp and he was 101. patient is in no apparent respiratory distress. He has 100% nonrebreather on his face. He is satting at 95 with this 100% nonrebreather. Initial auscultation of his lungs does not reveal any excessive wheezing no rales no obvious explanation for his SOB and desaturartion Related Data Home Medications Medication Instructions Recorded Confirmed alendronate 70 mg PO QWEEK 09/20/17 12/24/17 cholecalciferol (vitamin D3) 5,000 unit PO DAILY 09/20/17 12/24/17 [Vitamin D3] duloxetine 60 mg PO BID 09/20/17 12/24/17 fexofenadine 1 tab PO DAILY 09/20/17 12/24/17 fluticasone 1 spray INTRANASAL DAILY 09/20/17 12/24/17 fluticasone-salmeterol [Advair 1 inh INHALATION BID 09/20/17 12/24/17 Diskus] gabapentin 400 mg PO QID 09/20/17 12/24/17 levothyroxine 137 mcg PO DAILY 09/20/17 12/24/17 metoprolol succinate 100 mg PO HS 09/20/17 12/24/17 oalqt-1-lmd-hbz-tqb-your oil 1 cap PO DAILY 09/20/17 12/24/17 [[place]-3 (with dpa)] omeprazole 20 mg PO BID 09/20/17 12/24/17 tamsulosin 0.4 mg PO DAILY 09/20/17 12/24/17 turmeric-turmeric root extract 3 tab PO DAILY 09/20/17 12/24/17 Advair HFA 2 puff INHALATION BID 12/21/17 12/24/17 apixaban [Eliquis] 5 mg PO BID 12/21/17 12/24/17 Previous Rx's Medication Instructions Recorded albuterol sulfate [Ventolin HFA] 2 puff INHALATION Q4-6H PRN #1 g 12/24/17 budesonide-formoterol [Symbicort] 2 puff INH BID #1 g 12/24/17 furosemide [Lasix] 20 mg PO DAILY #30 tab 12/24/17 levofloxacin 500 mg PO DAILY #5 tab 12/24/17 lisinopril 20 mg PO BID #60 tab 12/24/17 prednisone 20 mg PO DAILY #5 tab 12/24/17 Allergies Allergy/AdvReac Type Severity Reaction Status Date / Time No Known Allergies Allergy Verified 12/24/17 14:17 Review of Systems ROS: all other systems reviewed are negative [facility] Family History Family History Other Osteoarthritis Social History Social History Substance History: No History of Abuse Second Hand Smoke Exposure: No (QUIT MORE THAN 30 YEARS AGO) Smoking Status: Former smoker Tobacco Type: Cigarettes How Often Do You Have a Drink Containing Alcohol: Never Recent Travel in [facility] within the Last 8 Weeks: No Recent Out of Country Travel within the Last 8 Weeks: No Immunization History Tetanus Immunization: <5 Years Exam Narrative Exam Narrative: GENERAL: On 100% nonrebreather mild increase in respiratory rate patient is able to talk in full sentences SKIN: Warm and dry. HEAD: Atraumatic. Normocephalic. EYES: Pupils equal and round. No scleral icterus. No injection or drainage. Patient has what seems to be some kind of ocular lubricant over his eyes bilateral ENT: No nasal bleeding or discharge. Mucous membranes pink and moist. NECK: Trachea midline. No JVD. CARDIOVASCULAR: Regular rate and rhythm. RESPIRATORY: + use of accessory muscle use. Decreased breath sounds auscultated bilateral mostlike in rightlower lung GASTROINTESTINAL: Abdomen soft, non-tender, nondistended. Hepatic and splenic margins not palpable. MUSCULOSKELETAL: Extremities without clubbing, cyanosis, or edema. No obvious deformities. NEUROLOGICAL: Awake and alert. No obvious cranial nerve deficits. Motor grossly within normal limits. Five out of 5 muscle strength in the arms and legs. Normal speech. PSYCHIATRIC: Appropriate mood and affect; insight and judgment normal. Course Initial Documented Vital Signs Temperature 98.6 F 12/21/17 04:13 Pulse Rate 107 H 12/21/17 04:13 Respiratory Rate 22 12/21/17 04:13 Blood Pressure 199/98 H 12/21/17 04:13 Pulse Oximetry 89 L 12/21/17 04:13 Last Documented Vital Signs Temperature 98.6 F 12/24/17 08:00 Pulse Rate 68 12/24/17 13:00 Respiratory Rate 15 12/24/17 12:58 Blood Pressure 143/97 H 12/24/17 12:00 Pulse Oximetry 20 L 12/24/17 12:00 Medical Decision Making MDM Narrative Medical decision making narrative: CHEST XRAY consolidation and Trop elevated admit Medical Screen Exam Complete: Yes Emergency Medical Condition: Yes Differential Diagnosis Differential Diagnosis: SOB from COPD or CHF or dysrrhythmia or PNA PTX other Lab Data Lab results reviewed: Yes I reviewed the patient's lab results. Result diagrams: 12/24/17 11:14 12/24/17 11:14 Lab Results 12/21/17 12/21/17 12/21/17 Range/Units 04:39 04:39 04:39 WBC 12.6 H (4.0-11.0) th/mm3 RBC 3.45 L (4.50-5.90) mil/mm3 Hgb 9.7 L (13.0-17.0) gm/dL Hct 31.1 L (39.0-51.0) % MCV 90.0 (80.0-100.0) fL MCH 28.2 (27.0-34.0) pg MCHC 31.4 L (32.0-36.0) % RDW 15.3 (11.6-17.2) % Plt Count 353 (150-450) th/mm3 MPV 8.6 (7.0-11.0) fL Neut % (Auto) 86.3 H (16.0-70.0) % Lymph % (Auto) 3.4 L (9.0-44.0) % Glascock % (Auto) 9.5 H (0.0-8.0) % Eos % (Auto) 0.4 (0.0-4.0) % Baso % (Auto) 0.4 (0.0-2.0) % Neut # (Auto) 10.9 H (1.8-7.7) th/mm3 Lymph # (Auto) 0.4 L (1.0-4.8) th/mm3 Glascock # (Auto) 1.2 H (0.0-0.9) th/mm3 Eos # (Auto) 0.0 (0.0-0.4) th/mm3 Baso # (Auto) 0.1 (0.0-0.2) th/mm3 WBC Differential . Differential Comment Auto diff final Puncture Site Patient Temperature O2 Saturation (90-100) % ABG pH (7.380-7.420) ABG pCO2 (38-42) mmHg ABG pO2 (61-120) mmHg ABG HCO3 (22-26) mmol/L ABG O2 Content (12.0-20.0) Vol % ABG Base Excess (-2-2) mmol/L ABG Methemoglobin (0-2) % Aidan Test Hemoglobin (12.0-16.0) G/DL Carboxyhemoglobin (0-4) % O2 Delivery Device Vent Setting Inspired O2 % Critical Value Sodium 144 (136-145) meq/L Potassium 4.1 (3.5-5.1) meq/L Chloride 104 (98-107) meq/L Carbon Dioxide 29.7 (21.0-32.0) meq/L Anion Gap 10 (5-15) meq/L BUN 19 H (7-18) mg/dL Creatinine 1.22 (0.60-1.30) mg/dL Estimated GFR 57 L (>89) mL/min Random Glucose 104 (74-106) mg/dL Lactic Acid 1.1 (0.4-2.0) mmol/L Calcium 8.5 (8.5-10.1) mg/dL Total Bilirubin 1.7 H (0.2-1.0) mg/dL AST 14 L (15-37) U/L ALT 14 (12-78) U/L Alkaline Phosphatase 123 H (45-117) U/L Troponin I 0.20 H (0.02-0.05) ng/mL Total Protein 7.3 (6.4-8.2) g/dL Albumin 2.6 L (3.4-5.0) g/dL 12/21/17 12/21/17 12/21/17 Range/Units 05:50 12:08 18:59 WBC (4.0-11.0) th/mm3 RBC (4.50-5.90) mil/mm3 Hgb (13.0-17.0) gm/dL Hct (39.0-51.0) % MCV (80.0-100.0) fL MCH (27.0-34.0) pg MCHC (32.0-36.0) % RDW (11.6-17.2) % Plt Count (150-450) th/mm3 MPV (7.0-11.0) fL Neut % (Auto) (16.0-70.0) % Lymph % (Auto) (9.0-44.0) % Glascock % (Auto) (0.0-8.0) % Eos % (Auto) (0.0-4.0) % Baso % (Auto) (0.0-2.0) % Neut # (Auto) (1.8-7.7) th/mm3 Lymph # (Auto) (1.0-4.8) th/mm3 Glascock # (Auto) (0.0-0.9) th/mm3 Eos # (Auto) (0.0-0.4) th/mm3 Baso # (Auto) (0.0-0.2) th/mm3 WBC Differential Differential Comment Puncture Site Right radial Patient Temperature 98.6 O2 Saturation 92 (90-100) % ABG pH 7.45 H (7.380-7.420) ABG pCO2 41 (38-42) mmHg ABG pO2 71 (61-120) mmHg ABG HCO3 28 H (22-26) mmol/L ABG O2 Content 12.9 (12.0-20.0) Vol % ABG Base Excess 4.0 H (-2-2) mmol/L ABG Methemoglobin 0.6 (0-2) % Aidan Test Present Hemoglobin 10.0 L (12.0-16.0) G/DL Carboxyhemoglobin 2.1 (0-4) % O2 Delivery Device Bipap Vent Setting Ipap=12 epap=6 Inspired O2 40 % Critical Value No Sodium (136-145) meq/L Potassium (3.5-5.1) meq/L Chloride (98-107) meq/L Carbon Dioxide (21.0-32.0) meq/L Anion Gap (5-15) meq/L BUN (7-18) mg/dL Creatinine (0.60-1.30) mg/dL Estimated GFR (>89) mL/min Random Glucose (74-106) mg/dL Lactic Acid (0.4-2.0) mmol/L Calcium (8.5-10.1) mg/dL Total Bilirubin (0.2-1.0) mg/dL AST (15-37) U/L ALT (12-78) U/L Alkaline Phosphatase (45-117) U/L Troponin I 0.22 H 0.19 H (0.02-0.05) ng/mL Total Protein (6.4-8.2) g/dL Albumin (3.4-5.0) g/dL 12/22/17 12/22/17 12/23/17 Range/Units 06:00 06:00 07:44 WBC 23.4 H 22.8 H (4.0-11.0) th/mm3 RBC 3.21 L 3.55 L (4.50-5.90) mil/mm3 Hgb 9.2 L 10.0 L (13.0-17.0) gm/dL Hct 28.4 L 31.8 L (39.0-51.0) % MCV 88.4 89.6 (80.0-100.0) fL MCH 28.8 28.2 (27.0-34.0) pg MCHC 32.6 31.5 L (32.0-36.0) % RDW 15.1 15.7 (11.6-17.2) % Plt Count 322 366 (150-450) th/mm3 MPV 8.9 8.9 (7.0-11.0) fL Neut % (Auto) 93.3 H 93.6 H (16.0-70.0) % Lymph % (Auto) 2.2 L 1.8 L (9.0-44.0) % Gl[place] % (Auto) 4.4 4.5 (0.0-8.0) % Eos % (Auto) 0.0 0.0 (0.0-4.0) % Baso % (Auto) 0.1 0.1 (0.0-2.0) % Neut # (Auto) 21.8 H 21.4 H (1.8-7.7) th/mm3 Lymph # (Auto) 0.5 L 0.4 L (1.0-4.8) th/mm3 [place] # (Auto) 1.0 H 1.0 H (0.0-0.9) th/mm3 Eos # (Auto) 0.0 0.0 (0.0-0.4) th/mm3 Baso # (Auto) 0.0 0.0 (0.0-0.2) th/mm3 WBC Differential . . Differential Comment Auto diff final Auto diff final Puncture Site Patient Temperature O2 Saturation (90-100) % ABG pH (7.380-7.420) ABG pCO2 (38-42) mmHg ABG pO2 (61-120) mmHg ABG HCO3 (22-26) mmol/L ABG O2 Content (12.0-20.0) Vol % ABG Base Excess (-2-2) mmol/L ABG Methemoglobin (0-2) % Aidan Test Hemoglobin (12.0-16.0) G/DL Carboxyhemoglobin (0-4) % O2 Delivery Device Vent Setting Inspired O2 % Critical Value Sodium 143 (136-145) meq/L Potassium 4.4 (3.5-5.1) meq/L Chloride 104 (98-107) meq/L Carbon Dioxide 32.2 H (21.0-32.0) meq/L Anion Gap 7 (5-15) meq/L BUN 28 H (7-18) mg/dL Creatinine 1.39 H (0.60-1.30) mg/dL Estimated GFR 49 L (>89) mL/min Random Glucose 168 H (74-106) mg/dL Lactic Acid (0.4-2.0) mmol/L Calcium 8.8 (8.5-10.1) mg/dL Total Bilirubin 0.9 (0.2-1.0) mg/dL AST 16 (15-37) U/L ALT 14 (12-78) U/L Alkaline Phosphatase 112 (45-117) U/L Troponin I (0.02-0.05) ng/mL Total Protein 6.9 (6.4-8.2) g/dL Albumin 2.4 L (3.4-5.0) g/dL 11/13/18 11/14/18 11/14/18 Range/Units 07:44 06:28 11:14 WBC 19.9 H (4.0-11.0) th/mm3 RBC 3.66 L (4.50-5.90) mil/mm3 Hgb 10.3 L (13.0-17.0) gm/dL Hct 33.2 L (39.0-51.0) % MCV 90.7 (80.0-100.0) fL MCH 28.2 (27.0-34.0) pg MCHC 31.1 L (32.0-36.0) % RDW 15.9 (11.6-17.2) % Plt Count 408 (150-450) th/mm3 MPV 8.5 (7.0-11.0) fL Neut % (Auto) 90.5 H (16.0-70.0) % Lymph % (Auto) 2.5 L (9.0-44.0) % Gl[place]ock % (Auto) 6.7 (0.0-8.0) % Eos % (Auto) 0.1 (0.0-4.0) % Baso % (Auto) 0.2 (0.0-2.0) % Neut # (Auto) 18.0 H (1.8-7.7) th/mm3 Lymph # (Auto) 0.5 L (1.0-4.8) th/mm3 [place]ock # (Auto) 1.3 H (0.0-0.9) th/mm3 Eos # (Auto) 0.0 (0.0-0.4) th/mm3 Baso # (Auto) 0.0 (0.0-0.2) th/mm3 WBC Differential . Differential Comment Auto diff final Puncture Site Patient Temperature O2 Saturation (90-100) % ABG pH (7.380-7.420) ABG pCO2 (38-42) mmHg ABG pO2 (61-120) mmHg ABG HCO3 (22-26) mmol/L ABG O2 Content (12.0-20.0) Vol % ABG Base Excess (-2-2) mmol/L ABG Methemoglobin (0-2) % Aidan Test Hemoglobin (12.0-16.0) G/DL Carboxyhemoglobin (0-4) % O2 Delivery Device Vent Setting Inspired O2 % Critical Value Sodium 142 141 (136-145) meq/L Potassium 4.5 4.1 (3.5-5.1) meq/L Chloride 103 104 (98-107) meq/L Carbon Dioxide 31.4 30.1 (21.0-32.0) meq/L Anion Gap 8 7 (5-15) meq/L BUN 37 H 38 H (7-18) mg/dL Creatinine 1.41 H 1.21 (0.60-1.30) mg/dL Estimated GFR 48 L 58 L (>89) mL/min Random Glucose 117 H 94 (74-106) mg/dL Lactic Acid (0.4-2.0) mmol/L Calcium 8.7 8.5 (8.5-10.1) mg/dL Total Bilirubin 0.7 (0.2-1.0) mg/dL AST 25 (15-37) U/L ALT 20 (12-78) U/L Alkaline Phosphatase 117 (45-117) U/L Troponin I (0.02-0.05) ng/mL Total Protein 7.1 (6.4-8.2) g/dL Albumin 2.6 L (3.4-5.0) g/dL //18 Range/Units 11:14 WBC (4.0-11.0) th/mm3 RBC (4.50-5.90) mil/mm3 Hgb (13.0-17.0) gm/dL Hct (39.0-51.0) % MCV (80.0-100.0) fL MCH (27.0-34.0) pg MCHC (32.0-36.0) % RDW (11.6-17.2) % Plt Count (150-450) th/mm3 MPV (7.0-11.0) fL Neut % (Auto) (16.0-70.0) % Lymph % (Auto) (9.0-44.0) % Glascock % (Auto) (0.0-8.0) % Eos % (Auto) (0.0-4.0) % Baso % (Auto) (0.0-2.0) % Neut # (Auto) (1.8-7.7) th/mm3 Lymph # (Auto) (1.0-4.8) th/mm3 Glascock # (Auto) (0.0-0.9) th/mm3 Eos # (Auto) (0.0-0.4) th/mm3 Baso # (Auto) (0.0-0.2) th/mm3 WBC Differential Differential Comment Puncture Site Patient Temperature O2 Saturation (90-100) % ABG pH (7.380-7.420) ABG pCO2 (38-42) mmHg ABG pO2 (61-120) mmHg ABG HCO3 (22-26) mmol/L ABG O2 Content (12.0-20.0) Vol % ABG Base Excess (-2-2) mmol/L ABG Methemoglobin (0-2) % Aidan Test Hemoglobin (12.0-16.0) G/DL Carboxyhemoglobin (0-4) % O2 Delivery Device Vent Setting Inspired O2 % Critical Value Sodium 139 (136-145) meq/L Potassium 4.1 (3.5-5.1) meq/L Chloride 101 (98-107) meq/L Carbon Dioxide 31.8 (21.0-32.0) meq/L Anion Gap 6 (5-15) meq/L BUN 36 H (7-18) mg/dL Creatinine 1.28 (0.60-1.30) mg/dL Estimated GFR 54 L (>89) mL/min Random Glucose 83 (74-106) mg/dL Lactic Acid (0.4-2.0) mmol/L Calcium 8.9 (8.5-10.1) mg/dL Total Bilirubin (0.2-1.0) mg/dL AST (15-37) U/L ALT (12-78) U/L Alkaline Phosphatase (45-117) U/L Troponin I (0.02-0.05) ng/mL Total Protein (6.4-8.2) g/dL Albumin (3.4-5.0) g/dL Imaging Data Radiologist's impression: Chest X-Ray 12/21/17 04:37 CONCLUSION: Unchanged exam. bilateral basilar consolidations unchanged Discharge Plan Discharge Disposition Patient Disposition: 03 Discharge to SNF Discharge Condition Condition: Good Discharge Order Discharge Orders: Discharge Order (Routine); Ordered 12/24/17 Ordered By: Michael Hall Physicians Team ED Provider: Norman Morrison Primary Care Provider: UNKNOWN, Attending Provider: Michael Hall Other Providers: Raad Wick ; [facility],Agency Status ED Status: Left Department Discharge Information Discharge Date/Time: 12/21/17 08:50
--- NOTE | 2017-12-21 05:20 | XR ---
EXAM DATE: 12/21/2017 5:00 AM EST AGE/SEX: 82 years / Male INDICATIONS: Shortness of breath. CLINICAL DATA: This is the patient's initial encounter. Patient reports that signs and symptoms have been present for 1 day and indicates a pain score of 0/10. MEDICAL/SURGICAL HISTORY: Cardiovascular disease. Congestive heart failure. Chronic obstructi ve pulmonary disease. Pacemaker. COMPARISON: [facility], XR CHEST PA AND LAT, 02/04/2017. . FINDINGS: A single AP view of the chest demonstrates no significant change. Small bilateral pleural effusions a nd bibasilar pulmonary consolidations remain. Heart is mildly enlarged but unchanged. Right-sided pac ing device. CONCLUSION: Unchanged exam. Electronically signed by: Jalil Coates MD 12/21/2017 5:19 AM EST
[2017-12-21 05:56] LABS: ABG PCO2 41 mmHg (38-42); ABG PO2 71 mmHg (61-120)
[2017-12-21] MEDS ORDERED: Bisacodyl 10 MG Supp RECTAL PRN (06:16)
[2017-12-21] MEDS ORDERED: Acetaminophen 325 MG Tablet PO PRN (06:16)
[2017-12-21] MEDS ORDERED: Morphine Sulfate Inj 2 MG/ML Vial IV.PUSH PRN (06:20)
[2017-12-21] MEDS ORDERED: MethylPREDNISolone Sod Succinate Inj 40 MG/ML Vial IV.PUSH SCH (07:00)
[2017-12-21] MEDS ORDERED: Gabapentin 300 MG Capsule PO SCH (09:00)
[2017-12-21] MEDS: Pantoprazole Sodium 20 MG DR Tablet PO SCH ×2 (09:51→22:20)
[2017-12-21] MEDS: Senna/Docusate Sodium 8.6/50 MG Tablet PO SCH ×2 (09:51→22:21)
[2017-12-21] MEDS: Spironolactone 25 MG Tablet PO SCH ×2 (09:52→22:21)
[2017-12-21] MEDS: Furosemide 40 MG Tablet PO SCH ×2 (09:53→22:21)
[2017-12-21] MEDS: guaiFENesin 600 MG ER Tablet PO SCH ×2 (09:53→22:20)
[2017-12-21] MEDS: Duloxetine 60 MG DR Capsule PO SCH ×2 (09:54→22:20)
--- NOTE | 2017-12-21 10:14 | ECG ---
Date Performed: 12/21/2017 Time Performed: 04:31:10 PTAGE: 82 years EKG: ATRIAL FIBRILLATION WITH RAPID VENTRICULAR RESPONSE MODERATE ST DEPRESSION ABNORMAL ECG Com pared to prior electrocardiogram, Rate has increased and ventricular pacemaker is no longer seen. PREVIOUS TRACING : 12/21/2017 04.30 DOCTOR: Stanislaw Sears Interpretating Date/Time 12/21/2017 10:13:38
[2017-12-21] MEDS: Gabapentin 400 MG Capsule PO SCH ×4 (10:23→22:20)
[2017-12-21] MEDS: MethylPREDNISolone Sod Succinate Inj 40 MG/ML Vial IV.PUSH SCH ×3 (10:23→22:37)
[2017-12-21] MEDS: Budesonide-Formoterol 160/4.5 MCG 6 GM Inhaler INH SCH ×2 (10:23→22:22)
--- NOTE | 2017-12-21 11:13 | P.HPIM ---
History of Present Illness Primary Care Physician: UNKNOWN History of Present Illness: Mr. Carmona is an 82-year-old male. He is admitted secondary to chest pains with elevated troponin. Chest pain when seen is left lower and lateral. Tenderness to palpation is present. Additional findings on workup in the ER were hypoxia and pneumonia. His hypoxia has improved compared to yesterday. Pneumonia is likely contributory towards this patient's chest pain. Pneumonia is likely responsible for troponin elevation, however further workup to monitor trends of cardiac enzymes is in process. No new complaints this morning. Patient's feeling better than yesterday. Onset of symptoms (shortness of breath , chest pain and pressure) was 3-6 days before reporting to the ER. Acute worsening of shortness of breath and chest pain overnight prompted patient to come into the ER. Sepsis criteria are present and met at time of admit. Inpatient Certification: I certify that the inpatient services were ordered in accordance with Medicare regulations governing the order. This includes certification that hospital inpatient services are reasonable and necessary and in the case of services not specified as inpatient-only under 42 CFR 419.22(n), that they are appropriately provided as inpatient services in accordance to with the 2-midnight benchmark under 43 CFR 412.3(e) Estimated Total Length of Stay (Days): 2 Plans for Post Hospital Care: Not yet determined Review of Systems Constitutional: No fevers, no chills no night sweats, no fatigue, no weakness Eyes: No eye pain, no blurry vision, no loss of vision ENT: No sore throat, no ear pain, no rhinorrhea Cardiovascular: chest pain, no tachycardia, no palpitations, no syncope Respiratory: No wheezing, no cough, shortness of breath Gastrointestinal: No abdominal pain, no black tarry stools, no bright red blood per rectum, no vomiting, no diarrhea Musculoskeletal: No joint pain, no muscle cramps, no stiffness Integumentary: No rash, no ulcers, no drainage Neurologic: No sensory loss, no loss of motor function, no dizziness Psychiatric: No behavioral changes, no hallucinations, no suicidal ideations PMFSH - History History Provided By: Patient - Medical History Medical History: Medical History (Last Reviewed 10/21/17 @ 13:40 by Jose Antonio Atwood) CHF (congestive heart failure) COPD (chronic obstructive pulmonary disease) Kidney disease Neuropathy Pacemaker - Surgical History Surgical History: Surgical History (Last Reviewed 10/21/17 @ 13:40 by Jose Antonio Atwood) History of knee replacement - Family History Family History: Family History (Last Updated 12/21/17 @ 11:08 by Naman Marrero MD) Other Osteoarthritis - Tobacco History Second Hand Smoke Exposure: No Smoking Status: Former smoker - Alcohol History How Often Do You Have a Drink Containing Alcohol: Never - Substance Use History Substance History: No History of Abuse - Travel History Recent Travel in the [place] Within the Last 8 Weeks: No Recent Travel Out of the Country Within the Last 8 Weeks: No - Immunization History Tetanus Immunization: <5 Years Medications and Allergies Active Medications: Active Medications Acetaminophen (Tylenol) 650 mg PO Q4H PRN PRN Reason: Temp > 100.4 Al Hydroxide/Mg Hydroxide (Milk Of Magnesia Liq) 30 ml PO Q12H PRN PRN Reason: Mild Constipation Albuterol (Duoneb Neb (Prn)) 1 ampul NEB Q2HR NEB PRN PRN Reason: SOB/WHEEZING Albuterol (Duoneb Neb (Suzie)) 1 ampul NEB Q4HR WHILE AWAKE NEB [facility] Last Admin: 12/21/17 07:08 Dose: 1 ampul Apixaban (Eliquis) 5 mg PO BID [facility] Last Admin: 12/21/17 09:52 Dose: 5 mg Bisacodyl (Dulcolax Supp) 10 mg RECTAL DAILY PRN PRN Reason: SEVERE CONSITIPATION Budesonide/Formoterol Fumarate (Symbicort 160/4.5 Mcg Inh) 2 puff INH BID [facility] Last Admin: 12/21/17 10:23 Dose: 2 puff Duloxetine HCl (Cymbalta) 60 mg PO BID [facility] Last Admin: 12/21/17 09:54 Dose: 60 mg Furosemide (Lasix) 40 mg PO BID [facility] Last Admin: 12/21/17 09:53 Dose: 40 mg Gabapentin (Neurontin) 400 mg PO QID [facility] Last Admin: 12/21/17 10:23 Dose: 400 mg Guaifenesin (Mucinex Er) 600 mg PO BID [facility] Last Admin: 12/21/17 09:53 Dose: 600 mg Levofloxacin/Dextrose (Levaquin 750 Mg Premix Inj) 150 mls @ 100 mls/hr IV.SIG Q48H [facility] Lactulose (Lactulose Liq) 30 ml PO DAILY PRN PRN Reason: SEVERE CONSITIPATION Methylprednisolone Sodium Succinate (Solumedrol Inj) 40 mg IV.PUSH Q6H [facility] Last Admin: 12/21/17 10:23 Dose: 40 mg Metoprolol Succinate (Toprol Xl) 100 mg PO HS [facility] Morphine Sulfate (Morphine Inj) 2 mg IV.PUSH Q4H PRN PRN Reason: PAIN 6-10 Nitroglycerin (Nitro-Bid 2% Oint) 0.5 inch TOPICAL Q6HR PRN PRN Reason: CHEST PAIN Ondansetron HCl (Zofran Inj) 4 mg IV.PUSH Q6H PRN PRN Reason: NAUSEA OR VOMITING Pantoprazole Sodium (Protonix) 20 mg PO BID [facility] Last Admin: 12/21/17 09:51 Dose: 20 mg Senna/Docusate Sodium (Astrid-Colace) 1 tab PO BID [facility] Last Admin: 12/21/17 09:51 Dose: Not Given Sennosides (Senokot) 17.2 mg PO Q12H PRN PRN Reason: Moderate Constipation Spironolactone (Aldactone) 25 mg PO BID [facility] Last Admin: 12/21/17 09:52 Dose: 25 mg Tamsulosin HCl (Flomax) 0.4 mg PO DAILY [facility] Last Admin: 12/21/17 09:52 Dose: 0.4 mg Allergies Allergy/AdvReac Type Severity Reaction Status Date / Time No Known Allergies Allergy Verified 10/21/17 11:20 Home Medications Medication Instructions Recorded Confirmed Type alendronate 70 mg PO QWEEK 09/20/17 12/21/17 History cholecalciferol (vitamin D3) 5,000 unit PO DAILY 09/20/17 12/21/17 History [Vitamin D3] duloxetine 60 mg PO BID 09/20/17 12/21/17 History fexofenadine 1 tab PO DAILY 09/20/17 12/21/17 History fluticasone 1 spray INTRANASAL DAILY 09/20/17 12/21/17 History fluticasone-salmeterol [Advair 1 inh INHALATION BID 09/20/17 12/21/17 History Diskus] furosemide 40 mg PO BID 09/20/17 12/21/17 History gabapentin 400 mg PO QID 09/20/17 12/21/17 History levothyroxine 137 mcg PO DAILY 09/20/17 12/21/17 History metoprolol succinate 100 mg PO HS 09/20/17 12/21/17 History kqvdh-[id number]-mapm oil 1 cap PO DAILY 09/20/17 12/21/17 History [[place]-3 (with dpa)] omeprazole 20 mg PO BID 09/20/17 12/21/17 History spironolactone 1 tab PO BID 09/20/17 12/21/17 History tamsulosin 0.4 mg PO DAILY 09/20/17 12/21/17 History turmeric-turmeric root extract 3 tab PO DAILY 09/20/17 12/21/17 History Advair HFA 2 puff INHALATION BID 12/21/17 12/21/17 History apixaban [Eliquis] 5 mg PO BID 12/21/17 12/21/17 History lisinopril 40 mg PO DAILY 12/21/17 12/21/17 History Exam Vital signs: Vital Signs 12/21/17 04:13 12/21/17 04:19 12/21/17 04:21 Temperature 98.6 F Pulse Rate 107 H Respiratory Rate 22 22 Blood Pressure 199/98 H Pulse Oximetry 89 L 97 92 L 12/21/17 04:30 12/21/17 06:00 12/21/17 06:42 Temperature Pulse Rate 12 L 101 H Respiratory Rate 32 H 20 Blood Pressure 181/88 H Pulse Oximetry 93 L 93 L 12/21/17 07:08 12/21/17 07:28 Temperature 98.9 F Pulse Rate 94 H 93 H Respiratory Rate 20 20 Blood Pressure 165/82 H Pulse Oximetry 95 Intake & Output 12/20/17 12/21/17 12/21/17 18:59 06:59 18:59 Weight 74.843 kg Narrative: GENERAL: NAD, A&Ox3 HEAD: Normocephalic. NECK: Supple, trachea midline. No lymphadenopathy. EYES: No scleral icterus. No injection or drainage. CARDIOVASCULAR: Regular rate and rhythm without murmurs, gallops, or rubs. RESPIRATORY: Breath sounds equal bilaterally. No accessory muscle use. GASTROINTESTINAL: Abdomen soft, non-tender, nondistended. MUSCULOSKELETAL: No cyanosis, or edema. SKIN: Warm and dry. NEURO: No focal neurological deficits. Results - Labs CBC & Chem 7: 12/21/17 04:39 12/21/17 04:39 Labs: Short CBC 12/21/17 Range/Units 04:39 WBC 12.6 H (4.0-11.0) th/mm3 Hgb 9.7 L (13.0-17.0) gm/dL Hct 31.1 L (39.0-51.0) % Plt Count 353 (150-450) th/mm3 BMP 12/21/17 04:39 Sodium 144 Potassium 4.1 Chloride 104 Carbon Dioxide 29.7 BUN 19 H Creatinine 1.22 Calcium 8.5 Cardiac Enzymes 12/21/17 Range/Units 04:39 Troponin I 0.20 H (0.02-0.05) ng/mL Liver Function 12/21/17 Range/Units 04:39 Total Bilirubin 1.7 H (0.2-1.0) mg/dL AST 14 L (15-37) U/L ALT 14 (12-78) U/L Alkaline Phosphatase 123 H (45-117) U/L Albumin 2.6 L (3.4-5.0) g/dL - Imaging Impressions Chest X-Ray 12/21/17 04:37 CONCLUSION: Unchanged exam. Caprini VTE Risk Assessment Caprini VTE Risk Assessment: Moderate/High Risk (score >= 2) Caprini Risk Assessment Model: Point Value = 1 Point Value = 2 Point Value = 3 Point Value = 5 Age 41-60 Minor surgery BMI > 25 kg/m2 Swollen legs Varicose veins or History of unexplained or recurrent spontaneous Oral contraceptives or hormone replacement Sepsis (< 1 month) Serious lung disease, including pneumonia (< 1 month) Abnormal pulmonary function Acute myocardial infarction Congestive heart failure (< 1 month) History of inflammatory bowel disease Medical patient at bed rest Age 61-74 Arthroscopic surgery Major open surgery (> 45 min) Laparoscopic surgery (> 45 min) Malignancy Confined to bed (> 72 hours) Immobilizing plaster cast Central venous access Age >= 75 History of VTE Family history of VTE Factor V Leiden Prothrombin [id number] Lupus anticoagulant Anticardiolipin antibodies Elevated serum homocysteine Heparin-induced thrombocytopenia Other congenital or acquired thrombophilia Stroke (< 1 month) Elective arthroplasty Hip, pelvis, or leg fracture Acute spinal cord injury (< 1 month) Prophylaxis Regimen: Total Risk Factor Score Risk Level Prophylaxis Regimen 0-1 Low Early ambulation 2 Moderate Order ONE of the following: *Sequential Compression Device (SCD) *Heparin 5000 units SQ BID 3-4 Higher Order ONE of the following medications: *Heparin 5000 units SQ TID *Enoxaparin/Lovenox 40 mg SQ daily (WT < 150 kg, CrCl > 30 mL/min) *Enoxaparin/Lovenox 30 mg SQ daily (WT < 150 kg, CrCl > 10-29 mL/min) *Enoxaparin/Lovenox 30 mg SQ BID (WT < 150 kg, CrCl > 30 mL/min) AND/OR *Sequential Compression Device (SCD) 5 or more Highest Order ONE of the following medications: *Heparin 5000 units SQ TID (Preferred with Epidurals) *Enoxaparin/Lovenox 40 mg SQ daily (WT < 150 kg, CrCl > 30 mL/min) *Enoxaparin/Lovenox 30 mg SQ daily (WT < 150 kg, CrCl > 10-29 mL/min) *Enoxaparin/Lovenox 30 mg SQ BID (WT < 150 kg, CrCl > 30 mL/min) AND *Sequential Compression Device (SCD) Assessment and Plan - Plan 82-year-old male admitted secondary to pneumonia with hypoxia and elevated troponins. At Baseline patient walks with a walker and uses oxygen. Community-acquired pneumonia Hypoxia COPD Continue steroids Oxygen supplementation as needed Levaquin Probiotics Patient is on oxygen at baseline so full wean is not anticipated Chest pain Troponin elevation History of pacemaker History of CHF Evaluate for ACS Follow cardiac enzymes When necessary oxygen When necessary nitroglycerin Follow on telemetry Cardiology consult Chronic kidney disease Follow renal function Avoid nephrotoxins Chronic neuropathy No change in baseline treatments Chronic weakness Walker dependent Physical therapy DVT prophylaxis Eliquis
--- NOTE | 2017-12-21 12:15 | ECG ---
Date Performed: 12/21/2017 Time Performed: 10:50:28 PTAGE: 82 years EKG: Atrial fibrillation with rapid ventricular response. Nonspecific ST and T wave abnormalitie s Abnormal ECG No significant change from prior electrocardiogram. DOCTOR: Stanislaw Sears Interpretating Date/Time 12/21/2017 12:14:05
[2017-12-21] MEDS: Lactobacillus Acidophilus/L. Spores Tablet PO SCH ×2 (12:21→18:36)
[2017-12-22] MEDS: MethylPREDNISolone Sod Succinate Inj 40 MG/ML Vial IV.PUSH SCH ×3 (06:03→21:50)
[2017-12-22 07:35] LABS: Baso % (Auto) 0.1 % (0.0-2.0); Hematocrit 28.4 % (39.0-51.0); Hemoglobin 9.2 gm/dL (13.0-17.0); Lymph # (Auto) 0.5 th/mm3 (1.0-4.8); Lymph % (Auto) 2.2 % (9.0-44.0); Mean Corpuscular HGB Conc 32.6 % (32.0-36.0); Mean Corpuscular Hemoglobin 28.8 pg (27.0-34.0); Mean Corpuscular Volume 88.4 fL (80.0-100.0); Mean Platelet Volume 8.9 fL (7.0-11.0); Mono % (Auto) 4.4 % (0.0-8.0); Neut # (Auto) 21.8 th/mm3 (1.8-7.7); Neut % (Auto) 93.3 % (16.0-70.0); Platelet Count 322 th/mm3 (150-450); Red Blood Count 3.21 mil/mm3 (4.50-5.90); Red Cell Distribution Width 15.1 % (11.6-17.2); White Blood Count 23.4 th/mm3 (4.0-11.0)
[2017-12-22 07:58] LABS: Albumin 2.4 g/dL (3.4-5.0); Anion Gap 7 meq/L (5-15); Aspartate Aminotransferase 16 U/L (15-37); Blood Urea Nitrogen 28 mg/dL (7-18); Calcium 8.8 mg/dL (8.5-10.1); Carbon Dioxide 32.2 meq/L (21.0-32.0); Chloride 104 meq/L (98-107); Glomerular Filtration Rate 49 mL/min (>89); Glucose,Random 168 mg/dL (74-106); Potassium 4.4 meq/L (3.5-5.1); Sodium 143 meq/L (136-145)
[2017-12-22 08:04] LABS: Alanine Aminotransferase 14 U/L (12-78); Alkaline Phosphatase 112 U/L (45-117); Total Protein 6.9 g/dL (6.4-8.2)
[2017-12-22] MEDS: Lactobacillus Acidophilus/L. Spores Tablet PO SCH ×3 (09:21→20:48)
[2017-12-22] MEDS: Spironolactone 25 MG Tablet PO SCH ×2 (09:21→21:49)
[2017-12-22] MEDS: Duloxetine 60 MG DR Capsule PO SCH ×2 (09:21→21:50)
[2017-12-22] MEDS: guaiFENesin 600 MG ER Tablet PO SCH ×2 (09:21→21:50)
[2017-12-22] MEDS: Furosemide 40 MG Tablet PO SCH ×2 (09:21→21:50)
[2017-12-22] MEDS: Pantoprazole Sodium 20 MG DR Tablet PO SCH ×2 (09:22→21:50)
[2017-12-22] MEDS: Gabapentin 400 MG Capsule PO SCH ×4 (09:22→21:50)
[2017-12-22] MEDS: Senna/Docusate Sodium 8.6/50 MG Tablet PO SCH (09:22)
[2017-12-22] MEDS: Budesonide-Formoterol 160/4.5 MCG 6 GM Inhaler INH SCH ×2 (09:22→21:51)
--- NOTE | 2017-12-22 12:12 | ECG ---
Date Performed: 12/21/2017 Time Performed: 18:45:14 PTAGE: 82 years EKG: Atrial fibrillation. Extensive ST-T changes may be due to myocardial ischemia Since the pre vious tracing, no significant change noted Abnormal ECG PREVIOUS TRACING : 12/21/2017 10.50 DOCTOR: Clarke Blanco Interpretating Date/Time 12/22/2017 12:07:22
--- NOTE | 2017-12-22 13:40 | P.PN ---
Subjective Interval history: Follow-up community-acquired pneumonia/COPD exacerbation December 22, 2017-patient seen and examined, reported improvement of shortness of breath. Only complaint of dizziness but no chest pain. Physical Exam Vital signs: Vital Signs 12/21/17 15:03 12/21/17 16:38 12/21/17 19:01 Temperature 97.5 F L Pulse Rate 85 88 88 Respiratory Rate 18 19 20 Blood Pressure 146/75 H Pulse Oximetry 96 96 12/21/17 20:00 12/22/17 00:00 12/22/17 04:00 Temperature 97.7 F 97.4 F L Pulse Rate 84 86 86 Respiratory Rate 18 16 16 Blood Pressure 138/78 127/67 Pulse Oximetry 95 12/22/17 07:00 12/22/17 08:18 12/22/17 08:46 Temperature Pulse Rate 79 69 82 Respiratory Rate 18 Blood Pressure Pulse Oximetry 95 12/22/17 11:54 Temperature Pulse Rate 82 Respiratory Rate 18 Blood Pressure Pulse Oximetry Intake & Output 12/21/17 12/22/17 12/22/17 18:59 06:59 18:59 Intake Total 320 / 320 960 / 960 150 / 150 Output Total 295 / 295 325 / 325 Balance 25 / 25 635 / 635 150 / 150 Weight 72.3 kg Intake: IV 150 / 150 Levaquin 750 mg Premix Inj 150 150 / 150 ML @ 100 mls/hr IV.SIG Q48H [facility] Rx#:[id number] Oral 320 / 320 960 / 960 Output: Urine 295 / 295 325 / 325 Other: Date of Last Bowel Movement 12/21/17 12/21/17 12/20/17 Narrative: GENERAL: NAD, A&Ox3 HEAD: Normocephalic. NECK: Supple, trachea midline. No lymphadenopathy. EYES: No scleral icterus. No injection or drainage. CARDIOVASCULAR: Regular rate and rhythm without murmurs, gallops, or rubs. RESPIRATORY: Breath sounds equal bilaterally. No accessory muscle use. GASTROINTESTINAL: Abdomen soft, non-tender, nondistended. MUSCULOSKELETAL: No cyanosis, or edema. SKIN: Warm and dry. NEURO: No focal neurological deficits. Results - Labs CBC & Chem 7: 12/22/17 06:00 12/22/17 06:00 Laboratory Results - last 24 hr 12/21/17 12/21/17 12/22/17 12:08 18:59 06:00 WBC 23.4 H RBC 3.21 L Hgb 9.2 L Hct 28.4 L MCV 88.4 MCH 28.8 MCHC 32.6 RDW 15.1 Plt Count 322 MPV 8.9 Neut % (Auto) 93.3 H Lymph % (Auto) 2.2 L Bibb % (Auto) 4.4 Eos % (Auto) 0.0 Baso % (Auto) 0.1 Neut # (Auto) 21.8 H Lymph # (Auto) 0.5 L Bibb # (Auto) 1.0 H Eos # (Auto) 0.0 Baso # (Auto) 0.0 WBC Differential . Differential Comment Auto diff final Sodium Potassium Chloride Carbon Dioxide Anion Gap BUN Creatinine Estimated GFR Random Glucose Calcium Total Bilirubin AST ALT Alkaline Phosphatase Troponin I 0.22 H 0.19 H Total Protein Albumin 12/22/17 06:00 WBC RBC Hgb Hct MCV MCH MCHC RDW Plt Count MPV Neut % (Auto) Lymph % (Auto) Bibb % (Auto) Eos % (Auto) Baso % (Auto) Neut # (Auto) Lymph # (Auto) Bibb # (Auto) Eos # (Auto) Baso # (Auto) WBC Differential Differential Comment Sodium 143 Potassium 4.4 Chloride 104 Carbon Dioxide 32.2 H Anion Gap 7 BUN 28 H Creatinine 1.39 H Estimated GFR 49 L Random Glucose 168 H Calcium 8.8 Total Bilirubin 0.9 AST 16 ALT 14 Alkaline Phosphatase 112 Troponin I Total Protein 6.9 Albumin 2.4 L Assessment and Plan - Plan 82-year-old man with Community-acquired pneumonia Hypoxia COPD Decrease Solu-Medrol to 20 mg every 12 hours, continue with Levaquin and DuoNeb as well as Symbicort Maintain oxygen saturation above 92% Chest pain Troponin elevation History of pacemaker History of CHF Cardiology consultation pending When necessary nitroglycerin Check 2D echo Continue with current medications Chronic kidney disease Follow renal function Avoid nephrotoxins Atrial fibrillation Continue Cardizem, Eliquis Chronic neuropathy No change in baseline treatments Chronic weakness Walker dependent Physical therapy to treat and eval DVT prophylaxis Eliquis
--- NOTE | 2017-12-22 13:45 | P.CONCA ---
History of Present Illness Service: Cardiology Reason for Consult: Chest pain, elevated troponin Primary Care Provider: UNKNOWN Chief Complaint: SOB and chest tightness History of Present Illness: Pleasant 82 year old male well known to our practice with a significant past cardiac history of sick sinus syndrome with [employer] pacemaker implant, congestive heart failure, aortic regurgitation, TIA, atrial fibrillation for which she is on Eliquis, and carotid stenosis followed by Dr. Alberto. Patient reports that he was in his usual state of health until approximately 3 days ago when he developed chest tightness and increased shortness of breath. At home he is on continuous oxygen, but reports despite oxygen he continued to feel short of breath. His troponin is mildly elevated but not trending up, patient denies any chest pain since arrival to the hospital. White blood cell count elevated, could be secondary to steroids, no chest x-ray indicates possible pneumonia, patient is currently being treated for pneumonia. Review of Systems All other systems reviewed negative except as stated in HPI Constitutional: Reports weakness Cardiovascular: Reports shortness of breath PMFSH - History History Provided By: Patient - Medical History Medical History: Medical History (Last Updated 12/22/17 @ 14:22 by TONI Ding) Carotid stenosis, asymptomatic Hypokalemia Hypothyroid PVD (peripheral vascular disease) Sick sinus syndrome TIA (transient ischemic attack) CHF (congestive heart failure) COPD (chronic obstructive pulmonary disease) Kidney disease Neuropathy Pacemaker - Surgical History Surgical History: Surgical History (Last Updated 12/22/17 @ 14:22 by TONI Ding) History of thoracentesis S/P insertion of iliac artery stent History of knee replacement - Family History Family History: Family History (Last Updated 12/21/17 @ 11:08 by Naman Marrero MD) Other Osteoarthritis - Social History I have reviewed the patient's Social History: Yes - Tobacco History Second Hand Smoke Exposure: No Tobacco Use In Past 30 Days: No Smoking Status: Former smoker Tobacco Type: Cigarettes - Alcohol History How Often Do You Have a Drink Containing Alcohol: Never - Substance Use History Substance History: No History of Abuse - Travel History Recent Travel in the [place] Within the Last 8 Weeks: No Recent Travel Out of the Country Within the Last 8 Weeks: No - Immunization History Tetanus Immunization: Unsure Hx Influenza Vaccine This Season: Yes Medications and Allergies Allergies Allergy/AdvReac Type Severity Reaction Status Date / Time No Known Allergies Allergy Verified 10/21/17 11:20 Home Medications Medication Instructions Recorded Confirmed Type alendronate 70 mg PO QWEEK 09/20/17 12/21/17 History cholecalciferol (vitamin D3) 5,000 unit PO DAILY 09/20/17 12/21/17 History [Vitamin D3] duloxetine 60 mg PO BID 09/20/17 12/21/17 History fexofenadine 1 tab PO DAILY 09/20/17 12/21/17 History fluticasone 1 spray INTRANASAL DAILY 09/20/17 12/21/17 History fluticasone-salmeterol [Advair 1 inh INHALATION BID 09/20/17 12/21/17 History Diskus] furosemide 40 mg PO BID 09/20/17 12/21/17 History gabapentin 400 mg PO QID 09/20/17 12/21/17 History levothyroxine 137 mcg PO DAILY 09/20/17 12/21/17 History metoprolol succinate 100 mg PO HS 09/20/17 12/21/17 History [id number] oil 1 cap PO DAILY 09/20/17 12/21/17 History [[place]-3 (with dpa)] omeprazole 20 mg PO BID 09/20/17 12/21/17 History spironolactone 1 tab PO BID 09/20/17 12/21/17 History tamsulosin 0.4 mg PO DAILY 09/20/17 12/21/17 History turmeric-turmeric root extract 3 tab PO DAILY 09/20/17 12/21/17 History Advair HFA 2 puff INHALATION BID 12/21/17 12/21/17 History apixaban [Eliquis] 5 mg PO BID 12/21/17 12/21/17 History lisinopril 40 mg PO DAILY 12/21/17 12/21/17 History Active Medications: Active Medications Acetaminophen (Tylenol) 650 mg PO Q4H PRN PRN Reason: Temp > 100.4 Al Hydroxide/Mg Hydroxide (Milk Of Magnesia Liq) 30 ml PO Q12H PRN PRN Reason: Mild Constipation Albuterol (Duoneb Neb (Prn)) 1 ampul NEB Q2HR NEB PRN PRN Reason: SOB/WHEEZING Albuterol (Duoneb Neb (Suzie)) 1 ampul NEB Q4HR WHILE AWAKE NEB [facility] Last Admin: 12/22/17 11:54 Dose: 1 ampul Apixaban (Eliquis) 5 mg PO BID [facility] Last Admin: 12/22/17 09:21 Dose: 5 mg Budesonide/Formoterol Fumarate (Symbicort 160/4.5 Mcg Inh) 2 puff INH BID [facility] Last Admin: 12/22/17 09:22 Dose: 2 puff Duloxetine HCl (Cymbalta) 60 mg PO BID [facility] Last Admin: 12/22/17 09:21 Dose: 60 mg Furosemide (Lasix) 40 mg PO BID [facility] Last Admin: 12/22/17 09:21 Dose: 40 mg Gabapentin (Neurontin) 400 mg PO QID [facility] Last Admin: 12/22/17 09:22 Dose: 400 mg Guaifenesin (Mucinex Er) 600 mg PO BID [facility] Last Admin: 12/22/17 09:21 Dose: 600 mg Levofloxacin/Dextrose (Levaquin 750 Mg Premix Inj) 150 mls @ 100 mls/hr IV.SIG Q48H [facility] Last Infusion: 12/22/17 08:08 Dose: Infused Lactobacillus Acidophilus (Lactinex) 1 tab PO TID [facility] Last Admin: 12/22/17 09:21 Dose: 1 tab Methylprednisolone Sodium Succinate (Solumedrol Inj) 40 mg IV.PUSH Q12HR [facility] Metoprolol Succinate (Toprol Xl) 100 mg PO HS [facility] Last Admin: 12/21/17 22:20 Dose: 100 mg Morphine Sulfate (Morphine Inj) 2 mg IV.PUSH Q4H PRN PRN Reason: PAIN 6-10 Nitroglycerin (Nitro-Bid 2% Oint) 0.5 inch TOPICAL Q6HR PRN PRN Reason: CHEST PAIN Ondansetron HCl (Zofran Inj) 4 mg IV.PUSH Q6H PRN PRN Reason: NAUSEA OR VOMITING Pantoprazole Sodium (Protonix) 20 mg PO BID [facility] Last Admin: 12/22/17 09:22 Dose: 20 mg Spironolactone (Aldactone) 25 mg PO BID [facility] Last Admin: 12/22/17 09:21 Dose: 25 mg Tamsulosin HCl (Flomax) 0.4 mg PO DAILY [facility] Last Admin: 12/22/17 09:21 Dose: 0.4 mg Exam Vital signs: Vital Signs 12/21/17 15:03 12/21/17 16:38 12/21/17 19:01 Temperature 97.5 F L Pulse Rate 85 88 88 Respiratory Rate 18 19 20 Blood Pressure 146/75 H Pulse Oximetry 96 96 12/21/17 20:00 12/22/17 00:00 12/22/17 04:00 Temperature 97.7 F 97.4 F L Pulse Rate 84 86 86 Respiratory Rate 18 16 16 Blood Pressure 138/78 127/67 Pulse Oximetry 95 12/22/17 07:00 12/22/17 08:18 12/22/17 08:46 Temperature Pulse Rate 79 69 82 Respiratory Rate 18 Blood Pressure Pulse Oximetry 95 12/22/17 11:54 Temperature Pulse Rate 82 Respiratory Rate 18 Blood Pressure Pulse Oximetry Intake & Output 12/21/17 12/22/17 12/22/17 18:59 06:59 18:59 Intake Total 320 / 320 960 / 960 150 / 150 Output Total 295 / 295 325 / 325 Balance 25 / 25 635 / 635 150 / 150 Weight 72.3 kg Intake: IV 150 / 150 Levaquin 750 mg Premix Inj 150 150 / 150 ML @ 100 mls/hr IV.SIG Q48H [facility] Rx#:[id number] Oral 320 / 320 960 / 960 Output: Urine 295 / 295 325 / 325 Other: Date of Last Bowel Movement 12/21/17 12/21/17 12/20/17 - Constitutional no acute distress, average body habitus, cooperative - Routine HEENT Exam Head: Present: normocephalic, atraumatic Eye: Present: EOMI, PERRL, normal accommodation ENT: Present: mucous membranes moist - Routine Neck Exam Present: supple - Routine Respiratory Exam Present: diminished air movement - Routine Cardiovascular Exam Present: irregular rhythm - Routine Abdominal Exam Present: soft - Routine Skin Exam Present: intact - Routine Neurological Exam Present: alert, oriented X3 Results 12/22/17 06:00 12/22/17 06:00 Cardiac Enzymes 12/21/17 12/21/17 12/21/17 Range/Units 04:39 12:08 18:59 AST 14 L (15-37) U/L Troponin I 0.20 H 0.22 H 0.19 H (0.02-0.05) ng/mL 12/22/17 Range/Units 06:00 AST 16 (15-37) U/L Troponin I (0.02-0.05) ng/mL CBC 12/21/17 12/22/17 Range/Units 04:39 06:00 WBC 12.6 H 23.4 H (4.0-11.0) th/mm3 RBC 3.45 L 3.21 L (4.50-5.90) mil/mm3 Hgb 9.7 L 9.2 L (13.0-17.0) gm/dL Hct 31.1 L 28.4 L (39.0-51.0) % Plt Count 353 322 (150-450) th/mm3 Neut # (Auto) 10.9 H 21.8 H (1.8-7.7) th/mm3 Lymph # (Auto) 0.4 L 0.5 L (1.0-4.8) th/mm3 [place] # (Auto) 1.2 H 1.0 H (0.0-0.9) th/mm3 Eos # (Auto) 0.0 0.0 (0.0-0.4) th/mm3 Baso # (Auto) 0.1 0.0 (0.0-0.2) th/mm3 Comprehensive Metabolic Panel 12/21/17 12/22/17 Range/Units 04:39 06:00 Sodium 144 143 (136-145) meq/L Potassium 4.1 4.4 (3.5-5.1) meq/L Chloride 104 104 (98-107) meq/L Carbon Dioxide 29.7 32.2 H (21.0-32.0) meq/L BUN 19 H 28 H (7-18) mg/dL Creatinine 1.22 1.39 H (0.60-1.30) mg/dL Calcium 8.5 8.8 (8.5-10.1) mg/dL AST 14 L 16 (15-37) U/L ALT 14 14 (12-78) U/L Alkaline Phosphatase 123 H 112 (45-117) U/L Total Protein 7.3 6.9 (6.4-8.2) g/dL Albumin 2.6 L 2.4 L (3.4-5.0) g/dL Intake and Output 12/21/17 12/22/17 12/22/17 22:59 06:59 14:59 Intake Total 320 / 320 960 / 960 150 / 150 Output Total 295 / 295 325 / 325 Balance 25 / 25 635 / 635 150 / 150 Intake: IV 150 / 150 Levaquin 750 mg Premix Inj 150 150 / 150 ML @ 100 mls/hr IV.SIG Q48H [facility] Rx#:[id number] Oral 320 / 320 960 / 960 Output: Urine 295 / 295 325 / 325 Other: Date of Last Bowel Movement 12/21/17 12/20/17 Weight 72.3 kg - Imaging and Cardiology Imaging: Impressions Chest X-Ray 12/21/17 04:37 CONCLUSION: Unchanged exam. Assessment and Plan - Plan Assessment Chest pain Pneumonia SOB SSS TIA Atrial Fibrillation CHF CKD CHF PVD Carotid stenosis Plan -Troponin mildly elevated could be secondary to pneumonia, patient denies any further chest pain/tightness. Will continue to follow. Pt is on BB and Eliquis. He declines statin due to side effects in the past. -Being treated for pneumonia with antibiotics -Shortness of breath has improved today compared to yesterday, patient is on continuous oxygen at home -[employer] pacemaker in place -Continues on Eliquis, no issues with bleeding. HR is controlled. -No signs of CHF exacerbation -Creatinine is stable patient follows with Dr. Soni outpatient -Last echocardiogram was completed July 2017 and showed an ejection fraction of 52%, no significant valvular abnormalities were identified -PVD status post stent 2009, managed by Dr. Alberto -Bilateral carotid stenosis with history of bilateral carotid endarterectomy, most recent March 2017. The patient was seen and evaluated by Dr. iWck who participated in care, management, and decision making. The exam, history, and the medical decision-making described in the above note were completed with the assistance of the mid-level provider. I reviewed and agree with the findings presented. I attest that I had a [id number] encounter with the patient on the same day, and personally performed and documented my assessment and findings in the medical record. Overall doing better pneumonia getting better. Code Status: Full Code Discussed Condition With: Dr. Wick, RN
--- NOTE | 2017-12-22 17:29 | ECHRPT ---
Indication: CHEST PAIN CONCLUSIONS The left ventricular systolic function is low normal with an estimated ejection fraction in the rang e of 50- 55%. Normal left ventricular size. Wall thickness is normal. No regional wall motion abnormalities are present. The right ventricle is mildly dilated. The left atrial size is moderately dilated. The right atrial size is mildly dilated. Mild thickening of the mitral valve leaflets. Trace mitral valve regurgitation. Diffuse calcification of the aortic valve. Mild to moderate aortic valve regurgitation. No aortic valve stenosis. Mild thickening of the tricuspid valve leaflets. There is mild to moderate tricuspid valve regurgitation. The estimated pulmonary arterial pressure is 53 mmHg. BP: / HR: Rhythm: Atrial flutter Technical Quality:Good FINDINGS LEFT VENTRICLE The left ventricular systolic function is low normal with an estimated ejection fraction in the rang e of 50- 55%. Normal left ventricular size. Wall thickness is normal. No regional wall motion abnormalities are present. RIGHT VENTRICLE The right ventricle is mildly dilated. LEFT ATRIUM The left atrial size is moderately dilated. RIGHT ATRIUM The right atrial size is mildly dilated. MITRAL VALVE Mild thickening of the mitral valve leaflets. Trace mitral valve regurgitation. AORTIC VALVE Trileaflet aortic valve. Diffuse calcification of the aortic valve. Mild to moderate aortic valve regurgitation. No aortic valve stenosis. TRICUSPID VALVE Mild thickening of the tricuspid valve leaflets. There is mild to moderate tricuspid valve regurgitation. The estimated pulmonary arterial pressure is 53 mmHg. Sonja Jean Baptiste MD, FACC (Electronically Signed) Final Date:22 December 2017 17:28
[2017-12-23 08:36] LABS: Baso % (Auto) 0.1 % (0.0-2.0); Hematocrit 31.8 % (39.0-51.0); Lymph # (Auto) 0.4 th/mm3 (1.0-4.8); Lymph % (Auto) 1.8 % (9.0-44.0); Mean Corpuscular HGB Conc 31.5 % (32.0-36.0); Mean Corpuscular Hemoglobin 28.2 pg (27.0-34.0); Mean Corpuscular Volume 89.6 fL (80.0-100.0); Mean Platelet Volume 8.9 fL (7.0-11.0); Mono % (Auto) 4.5 % (0.0-8.0); Neut # (Auto) 21.4 th/mm3 (1.8-7.7); Neut % (Auto) 93.6 % (16.0-70.0); Platelet Count 366 th/mm3 (150-450); Red Blood Count 3.55 mil/mm3 (4.50-5.90); Red Cell Distribution Width 15.7 % (11.6-17.2); White Blood Count 22.8 th/mm3 (4.0-11.0)
[2017-12-23] MEDS: Gabapentin 400 MG Capsule PO SCH ×4 (08:51→20:42)
[2017-12-23] MEDS: Pantoprazole Sodium 20 MG DR Tablet PO SCH ×2 (08:51→20:41)
[2017-12-23] MEDS: guaiFENesin 600 MG ER Tablet PO SCH ×2 (08:51→20:41)
[2017-12-23] MEDS: Furosemide 40 MG Tablet PO SCH (08:51)
[2017-12-23] MEDS: Lactobacillus Acidophilus/L. Spores Tablet PO SCH ×3 (08:51→17:41)
[2017-12-23] MEDS: Duloxetine 60 MG DR Capsule PO SCH ×2 (08:51→21:02)
[2017-12-23] MEDS: Spironolactone 25 MG Tablet PO SCH (08:51)
[2017-12-23] MEDS: Budesonide-Formoterol 160/4.5 MCG 6 GM Inhaler INH SCH ×2 (08:52→21:00)
[2017-12-23] MEDS: MethylPREDNISolone Sod Succinate Inj 40 MG/ML Vial IV.PUSH SCH (08:52)
[2017-12-23 09:24] LABS: Albumin 2.6 g/dL (3.4-5.0); Anion Gap 8 meq/L (5-15); Aspartate Aminotransferase 25 U/L (15-37); Blood Urea Nitrogen 37 mg/dL (7-18); Calcium 8.7 mg/dL (8.5-10.1); Carbon Dioxide 31.4 meq/L (21.0-32.0); Chloride 103 meq/L (98-107); Glomerular Filtration Rate 48 mL/min (>89); Glucose,Random 117 mg/dL (74-106); Potassium 4.5 meq/L (3.5-5.1); Sodium 142 meq/L (136-145)
[2017-12-23 09:26] LABS: Alanine Aminotransferase 20 U/L (12-78)
[2017-12-23 09:28] LABS: Alkaline Phosphatase 117 U/L (45-117); Total Protein 7.1 g/dL (6.4-8.2)
[2017-12-23] MEDS ORDERED: Furosemide 40 MG Tablet PO SCH (09:46)
--- NOTE | 2017-12-23 09:54 | P.PNCA ---
Subjective Interval history: Patient sitting up in bed. He reports feeling well. Breathing has improved significantly compared to when he came in, he denies any further episodes of chest tightness. HR and BP elevated this AM. Creatinine trending up, medications adjusted. Will need to monitor renal function closely. [employer] notified, they will check pacemaker today. Patient ambulated with PT today, sats dropped into the 70's on o2 @ 3L. Medications and Allergies Allergies Allergy/AdvReac Type Severity Reaction Status Date / Time No Known Allergies Allergy Verified 10/21/17 11:20 Home Medications Medication Instructions Recorded Confirmed Type alendronate 70 mg PO QWEEK 09/20/17 12/21/17 History cholecalciferol (vitamin D3) 5,000 unit PO DAILY 09/20/17 12/21/17 History [Vitamin D3] duloxetine 60 mg PO BID 09/20/17 12/21/17 History fexofenadine 1 tab PO DAILY 09/20/17 12/21/17 History fluticasone 1 spray INTRANASAL DAILY 09/20/17 12/21/17 History fluticasone-salmeterol [Advair 1 inh INHALATION BID 09/20/17 12/21/17 History Diskus] furosemide 40 mg PO BID 09/20/17 12/21/17 History gabapentin 400 mg PO QID 09/20/17 12/21/17 History levothyroxine 137 mcg PO DAILY 09/20/17 12/21/17 History metoprolol succinate 100 mg PO HS 09/20/17 12/21/17 History pnigu-2-skb-tnp-cpn-ejuw oil 1 cap PO DAILY 09/20/17 12/21/17 History [[place]-3 (with dpa)] omeprazole 20 mg PO BID 09/20/17 12/21/17 History spironolactone 1 tab PO BID 09/20/17 12/21/17 History tamsulosin 0.4 mg PO DAILY 09/20/17 12/21/17 History turmeric-turmeric root extract 3 tab PO DAILY 09/20/17 12/21/17 History Advair HFA 2 puff INHALATION BID 12/21/17 12/21/17 History apixaban [Eliquis] 5 mg PO BID 12/21/17 12/21/17 History lisinopril 40 mg PO DAILY 12/21/17 12/21/17 History Active Medications: Active Medications Acetaminophen (Tylenol) 650 mg PO Q4H PRN PRN Reason: Temp > 100.4 Al Hydroxide/Mg Hydroxide (Milk Of Jose Luis Liq) 30 ml PO Q12H PRN PRN Reason: Mild Constipation Last Admin: 12/22/17 14:14 Dose: 30 ml Albuterol (Duoneb Neb (Prn)) 1 ampul NEB Q2HR NEB PRN PRN Reason: SOB/WHEEZING Albuterol (Duoneb Neb (Suzie)) 1 ampul NEB Q4HR WHILE AWAKE NEB ON LICENSE OF [facility] Last Admin: 12/23/17 07:26 Dose: 1 ampul Apixaban (Eliquis) 5 mg PO BID [facility] OF [facility] Last Admin: 12/23/17 08:51 Dose: 5 mg Budesonide/Formoterol Fumarate (Symbicort 160/4.5 Mcg Inh) 2 puff INH BID [facility] Last Admin: 12/23/17 08:52 Dose: 2 puff Duloxetine HCl (Cymbalta) 60 mg PO BID [facility] Last Admin: 12/23/17 08:51 Dose: 60 mg Furosemide (Lasix) 20 mg PO BID [facility] Gabapentin (Neurontin) 400 mg PO QID [facility] OF [facility] Last Admin: 12/23/17 08:51 Dose: 400 mg Guaifenesin (Mucinex Er) 600 mg PO BID [facility] Last Admin: 12/23/17 08:51 Dose: 600 mg Levofloxacin/Dextrose (Levaquin 750 Mg Premix Inj) 150 mls @ 100 mls/hr IV.SIG Q48H ON [facility] OF [facility] Last Infusion: 12/22/17 08:08 Dose: Infused Lactobacillus Acidophilus (Lactinex) 1 tab PO TID [facility] Last Admin: 12/23/17 08:51 Dose: 1 tab Lisinopril (Prinivil) 20 mg PO BID ON [facility] OF [facility] Methylprednisolone Sodium Succinate (Solumedrol Inj) 40 mg IV.PUSH Q12HR ON LICENSE OF [facility] Last Admin: 12/23/17 08:52 Dose: 40 mg Metoprolol Succinate (Toprol Xl) 100 mg PO HS [facility] Last Admin: 12/22/17 21:51 Dose: 100 mg Morphine Sulfate (Morphine Inj) 2 mg IV.PUSH Q4H PRN PRN Reason: PAIN 6-10 Ondansetron HCl (Zofran Inj) 4 mg IV.PUSH Q6H PRN PRN Reason: NAUSEA OR VOMITING Pantoprazole Sodium (Protonix) 20 mg PO BID [facility] Last Admin: 12/23/17 08:51 Dose: 20 mg Tamsulosin HCl (Flomax) 0.4 mg PO DAILY [facility] Last Admin: 12/23/17 08:51 Dose: 0.4 mg Physical Exam Vital signs: Vital Signs 12/22/17 10:00 12/22/17 11:00 12/22/17 11:54 Temperature Pulse Rate 79 92 H 82 Respiratory Rate 18 Blood Pressure Pulse Oximetry 12/22/17 12:00 12/22/17 13:00 12/22/17 14:00 Temperature 98.2 F Pulse Rate 96 H 96 H 92 H Respiratory Rate 20 Blood Pressure 135/79 Pulse Oximetry 94 L 12/22/17 15:00 12/22/17 16:00 12/22/17 17:00 Temperature 98 F Pulse Rate 101 H 94 H 90 Respiratory Rate 16 Blood Pressure 131/77 Pulse Oximetry 96 12/22/17 18:00 12/22/17 19:00 12/22/17 20:00 Temperature 98.2 F Pulse Rate 89 102 H 98 H Respiratory Rate 16 Blood Pressure 129/75 Pulse Oximetry 98 12/22/17 20:27 12/22/17 21:00 12/22/17 22:00 Temperature Pulse Rate 107 H 106 H 100 H Respiratory Rate 18 Blood Pressure Pulse Oximetry 97 12/22/17 23:00 12/23/17 00:00 12/23/17 01:00 Temperature 98.1 F Pulse Rate 106 H 96 H 101 H Respiratory Rate 16 Blood Pressure 146/77 H Pulse Oximetry 97 12/23/17 02:00 12/23/17 03:00 12/23/17 04:00 Temperature 98.2 F Pulse Rate 90 89 95 H Respiratory Rate 16 Blood Pressure 146/81 H Pulse Oximetry 97 12/23/17 05:00 12/23/17 06:00 12/23/17 07:00 Temperature Pulse Rate 83 80 82 Respiratory Rate Blood Pressure Pulse Oximetry 12/23/17 07:26 12/23/17 08:00 Temperature 96.7 F L Pulse Rate 76 96 H Respiratory Rate 16 16 Blood Pressure 163/100 H Pulse Oximetry 98 96 Intake & Output 11/12/18 11/13/18 11/13/18 18:59 06:59 18:59 Intake Total 990 / 990 240 / 240 Output Total 600 / 600 625 / 625 Balance 390 / 390 -385 / -385 Weight 71.4 kg Intake: IV 150 / 150 Levaquin 750 mg Premix Inj 150 150 / 150 ML @ 100 mls/hr IV.SIG Q48H ON LICENSE OF [facility] Rx#:[id number] Oral 840 / 840 240 / 240 Output: Urine 600 / 600 625 / 625 Other: Date of Last Bowel Movement 12/20/17 12/22/17 12/22/17 # Bowel Movements 2 0 - Constitutional no acute distress, average body habitus, cooperative - Routine HEENT Exam Head: Present: normocephalic, atraumatic Eye: Present: EOMI, PERRL, normal accommodation ENT: Present: mucous membranes moist - Routine Neck Exam Present: supple - Routine Respiratory Exam Present: diminished air movement - Routine Cardiovascular Exam Present: irregular rhythm - Routine Abdominal Exam Present: soft - Routine Skin Exam Present: intact, ecchymosis - Routine Neurological Exam Present: alert, oriented X3 - Detailed Neurological Exam: Coma Scale Eye Opening: Spontaneous Verbal Response: Oriented Motor Response: Obey commands George Coma Scale Total: 15 - Routine Psychiatric Exam Present: normal affect Results 12/23/17 07:44 12/23/17 07:44 Cardiac Enzymes 12/21/17 12/21/17 12/22/17 Range/Units 12:08 18:59 06:00 AST 16 (15-37) U/L Troponin I 0.22 H 0.19 H (0.02-0.05) ng/mL 12/23/17 Range/Units 07:44 AST 25 (15-37) U/L Troponin I (0.02-0.05) ng/mL CBC 12/22/17 12/23/17 Range/Units 06:00 07:44 WBC 23.4 H 22.8 H (4.0-11.0) th/mm3 RBC 3.21 L 3.55 L (4.50-5.90) mil/mm3 Hgb 9.2 L 10.0 L (13.0-17.0) gm/dL Hct 28.4 L 31.8 L (39.0-51.0) % Plt Count 322 366 (150-450) th/mm3 Neut # (Auto) 21.8 H 21.4 H (1.8-7.7) th/mm3 Lymph # (Auto) 0.5 L 0.4 L (1.0-4.8) th/mm3 [place] # (Auto) 1.0 H 1.0 H (0.0-0.9) th/mm3 Eos # (Auto) 0.0 0.0 (0.0-0.4) th/mm3 Baso # (Auto) 0.0 0.0 (0.0-0.2) th/mm3 Comprehensive Metabolic Panel 12/22/17 12/23/17 Range/Units 06:00 07:44 Sodium 143 142 (136-145) meq/L Potassium 4.4 4.5 (3.5-5.1) meq/L Chloride 104 103 (98-107) meq/L Carbon Dioxide 32.2 H 31.4 (21.0-32.0) meq/L BUN 28 H 37 H (7-18) mg/dL Creatinine 1.39 H 1.41 H (0.60-1.30) mg/dL Calcium 8.8 8.7 (8.5-10.1) mg/dL AST 16 25 (15-37) U/L ALT 14 20 (12-78) U/L Alkaline Phosphatase 112 117 (45-117) U/L Total Protein 6.9 7.1 (6.4-8.2) g/dL Albumin 2.4 L 2.6 L (3.4-5.0) g/dL Intake and Output 12/22/17 12/23/17 12/23/17 22:59 06:59 14:59 Intake Total 840 / 840 240 / 240 Output Total 600 / 600 625 / 625 Balance 240 / 240 -385 / -385 Intake: Oral 840 / 840 240 / 240 Output: Urine 600 / 600 625 / 625 Other: Date of Last Bowel Movement 12/22/17 12/22/17 12/22/17 # Bowel Movements 2 0 Weight 71.4 kg Assessment and Plan - Plan Assessment Chest pain Pneumonia SOB SSS TIA Atrial Fibrillation CHF CKD CHF PVD Carotid stenosis Plan -Troponin mildly elevated could be secondary to pneumonia, patient denies any further chest pain/tightness. Pt is on BB and Eliquis. He declines statin due to side effects in the past. -Being treated for pneumonia with antibiotics, O2 sats dropped in the 70s on o2 @3L while ambulating with Pt. Pt -[employer] pacemaker in place, device check will be completed today. -Continues on Eliquis, no issues with bleeding. -No signs of CHF exacerbation, no edema or JVD. -Creatinine is trending up, patient follows with Dr. Soni outpatient. Spironolactone DCd and lasix decreased. No signs of fluid overload. -Last echocardiogram was completed July 2017 and showed an ejection fraction of 52%, no significant valvular abnormalities were identified -PVD status post stent 2009, managed by Dr. Alberto -Bilateral carotid stenosis with history of bilateral carotid endarterectomy, most recent March 2017. -BP elevated this AM, home lisinopril resumed. Patient is stable from a cardiac standpoint. The patient was seen and evaluated by Dr. Wick who participated in care, management, and decision making. The exam, history, and the medical decision-making described in the above note were completed with the assistance of the mid-level provider. I reviewed and agree with the findings presented. I attest that I had a [id number] encounter with the patient on the same day, and personally performed and documented my assessment and findings in the medical record. Feels better OK to d/c to rehab from cardiac perspective. Code Status: Full Code Discussed Condition With: Dr. Wick, RN
--- NOTE | 2017-12-23 11:18 | P.PN ---
Subjective Interval history: Follow-up community-acquired pneumonia/COPD exacerbation December 22, 2017-patient seen and examined, reported improvement of shortness of breath. Only complaint of dizziness but no chest pain. December 23, 2017-patient seen and examined, no chest pain or shortness of breath. Renal indices trending up Physical Exam Vital signs: Vital Signs 12/22/17 11:54 12/22/17 12:00 12/22/17 13:00 Temperature 98.2 F Pulse Rate 82 96 H 96 H Respiratory Rate 18 20 Blood Pressure 135/79 Pulse Oximetry 94 L 12/22/17 14:00 12/22/17 15:00 12/22/17 16:00 Temperature 98 F Pulse Rate 92 H 101 H 94 H Respiratory Rate 16 Blood Pressure 131/77 Pulse Oximetry 96 12/22/17 17:00 12/22/17 18:00 12/22/17 19:00 Temperature Pulse Rate 90 89 102 H Respiratory Rate Blood Pressure Pulse Oximetry 12/22/17 20:00 12/22/17 20:27 12/22/17 21:00 Temperature 98.2 F Pulse Rate 98 H 107 H 106 H Respiratory Rate 16 18 Blood Pressure 129/75 Pulse Oximetry 98 97 12/22/17 22:00 12/22/17 23:00 12/23/17 00:00 Temperature 98.1 F Pulse Rate 100 H 106 H 96 H Respiratory Rate 16 Blood Pressure 146/77 H Pulse Oximetry 97 12/23/17 01:00 12/23/17 02:00 12/23/17 03:00 Temperature Pulse Rate 101 H 90 89 Respiratory Rate Blood Pressure Pulse Oximetry 12/23/17 04:00 12/23/17 05:00 12/23/17 06:00 Temperature 98.2 F Pulse Rate 95 H 83 80 Respiratory Rate 16 Blood Pressure 146/81 H Pulse Oximetry 97 12/23/17 07:00 12/23/17 07:26 12/23/17 08:00 Temperature 96.7 F L Pulse Rate 82 76 96 H Respiratory Rate 16 16 Blood Pressure 163/100 H Pulse Oximetry 98 96 Intake & Output 12/22/17 12/23/17 12/23/17 18:59 06:59 18:59 Intake Total 990 / 990 240 / 240 Output Total 600 / 600 625 / 625 Balance 390 / 390 -385 / -385 Weight 71.4 kg Intake: IV 150 / 150 Levaquin 750 mg Premix Inj 150 150 / 150 ML @ 100 mls/hr IV.SIG Q48H [facility] Rx#:[id number] Oral 840 / 840 240 / 240 Output: Urine 600 / 600 625 / 625 Other: Date of Last Bowel Movement 12/20/17 12/22/17 12/22/17 # Bowel Movements 2 0 Narrative: GENERAL: NAD, A&Ox3 HEAD: Normocephalic. NECK: Supple, trachea midline. No lymphadenopathy. EYES: No scleral icterus. No injection or drainage. CARDIOVASCULAR: Regular rate and rhythm without murmurs, gallops, or rubs. RESPIRATORY: Breath sounds equal bilaterally. No accessory muscle use. GASTROINTESTINAL: Abdomen soft, non-tender, nondistended. MUSCULOSKELETAL: No cyanosis, or edema. SKIN: Warm and dry. NEURO: No focal neurological deficits. Results - Labs CBC & Chem 7: 12/23/17 07:44 12/23/17 07:44 Laboratory Results - last 24 hr 12/23/17 12/23/17 07:44 07:44 WBC 22.8 H RBC 3.55 L Hgb 10.0 L Hct 31.8 L MCV 89.6 MCH 28.2 MCHC 31.5 L RDW 15.7 Plt Count 366 MPV 8.9 Neut % (Auto) 93.6 H Lymph % (Auto) 1.8 L [place] % (Auto) 4.5 Eos % (Auto) 0.0 Baso % (Auto) 0.1 Neut # (Auto) 21.4 H Lymph # (Auto) 0.4 L [place] # (Auto) 1.0 H Eos # (Auto) 0.0 Baso # (Auto) 0.0 WBC Differential . Differential Comment Auto diff final Sodium 142 Potassium 4.5 Chloride 103 Carbon Dioxide 31.4 Anion Gap 8 BUN 37 H Creatinine 1.41 H Estimated GFR 48 L Random Glucose 117 H Calcium 8.7 Total Bilirubin 0.7 AST 25 ALT 20 Alkaline Phosphatase 117 Total Protein 7.1 Albumin 2.6 L Assessment and Plan - Plan 82-year-old man with Community-acquired pneumonia Hypoxia COPD d/c Solu-Medrol to 20 mg every 12 hours, start prednisone 20 mg daily and continue with Levaquin and DuoNeb as well as Symbicort Maintain oxygen saturation above 92% Chest pain Troponin elevation History of pacemaker History of CHF Cardiology consultation appreciated Secondary to worsening renal function, Lasix is on hold and Aldactone has been discontinued When necessary nitroglycerin Check 2D echo Continue with current medications Chronic kidney disease Follow renal function Avoid nephrotoxins Atrial fibrillation Continue Cardizem, Eliquis Chronic neuropathy No change in baseline treatments Chronic weakness Walker dependent Physical therapy to treat and eval DVT prophylaxis Eliquis
[2017-12-23] MEDS: Lisinopril 20 MG Tablet PO SCH ×2 (12:23→21:00)
[2017-12-24 07:25] LABS: Calcium 8.5 mg/dL (8.5-10.1); Carbon Dioxide 30.1 meq/L (21.0-32.0); Potassium 4.1 meq/L (3.5-5.1)
[2017-12-24] MEDS ORDERED: predniSONE 20 MG Tablet PO SCH (09:00)
[2017-12-24] MEDS ORDERED: levoFLOXacin 500 MG Tablet PO SCH (09:00)
[2017-12-24] MEDS: Pantoprazole Sodium 20 MG DR Tablet PO SCH (09:02)
[2017-12-24] MEDS: guaiFENesin 600 MG ER Tablet PO SCH (09:02)
[2017-12-24] MEDS: Lactobacillus Acidophilus/L. Spores Tablet PO SCH ×2 (09:02→12:50)
[2017-12-24] MEDS: Lisinopril 20 MG Tablet PO SCH (09:02)
[2017-12-24] MEDS: Gabapentin 400 MG Capsule PO SCH ×2 (09:02→12:50)
[2017-12-24] MEDS: Budesonide-Formoterol 160/4.5 MCG 6 GM Inhaler INH SCH (09:03)
[2017-12-24] MEDS: Duloxetine 60 MG DR Capsule PO SCH (09:39)
--- NOTE | 2017-12-24 09:57 | P.PNCA ---
Subjective Interval history: Patient sitting up in bed, reports doing well. He denies any chest pain or pressure. Breathing continues to improve. He reports he is ready to go home. Medications and Allergies Allergies Allergy/AdvReac Type Severity Reaction Status Date / Time No Known Allergies Allergy Verified 12/24/17 14:17 Home Medications Medication Instructions Recorded Confirmed Type alendronate 70 mg PO QWEEK 09/20/17 12/24/17 History cholecalciferol (vitamin D3) 5,000 unit PO DAILY 09/20/17 12/24/17 History [Vitamin D3] duloxetine 60 mg PO BID 09/20/17 12/24/17 History fexofenadine 1 tab PO DAILY 09/20/17 12/24/17 History fluticasone 1 spray INTRANASAL DAILY 09/20/17 12/24/17 History fluticasone-salmeterol [Advair 1 inh INHALATION BID 09/20/17 12/24/17 History Diskus] gabapentin 400 mg PO QID 09/20/17 12/24/17 History levothyroxine 137 mcg PO DAILY 09/20/17 12/24/17 History metoprolol succinate 100 mg PO HS 09/20/17 12/24/17 History [id number] oil 1 cap PO DAILY 09/20/17 12/24/17 History [[place]-3 (with dpa)] omeprazole 20 mg PO BID 09/20/17 12/24/17 History tamsulosin 0.4 mg PO DAILY 09/20/17 12/24/17 History turmeric-turmeric root extract 3 tab PO DAILY 09/20/17 12/24/17 History Advair HFA 2 puff INHALATION BID 12/21/17 12/24/17 History apixaban [Eliquis] 5 mg PO BID 12/21/17 12/24/17 History Active Medications: Active Medications Acetaminophen (Tylenol) 650 mg PO Q4H PRN PRN Reason: Temp > 100.4 Al Hydroxide/Mg Hydroxide (Milk Of Magnesia Liq) 30 ml PO Q12H PRN PRN Reason: Mild Constipation Last Admin: 12/22/17 14:14 Dose: 30 ml Albuterol (Duoneb Neb (Prn)) 1 ampul NEB Q2HR NEB PRN PRN Reason: SOB/WHEEZING Albuterol (Duoneb Neb ([facility])) 1 ampul NEB Q4HR WHILE AWAKE NEB [facility] Last Admin: 12/24/17 09:25 Dose: 1 ampul Apixaban (Eliquis) 5 mg PO BID [facility] Last Admin: 12/24/17 09:01 Dose: 5 mg Budesonide/Formoterol Fumarate (Symbicort 160/4.5 Mcg Inh) 2 puff INH BID [facility] Last Admin: 12/24/17 09:03 Dose: 2 puff Duloxetine HCl (Cymbalta) 60 mg PO BID [facility] Last Admin: 12/24/17 09:39 Dose: 60 mg Furosemide (Lasix) 20 mg PO BID [facility] Last Admin: 12/24/17 09:40 Dose: 20 mg Gabapentin (Neurontin) 400 mg PO QID [facility] Last Admin: 12/24/17 09:02 Dose: 400 mg Guaifenesin (Mucinex Er) 600 mg PO BID [facility] Last Admin: 12/24/17 09:02 Dose: 600 mg Lactobacillus Acidophilus (Lactinex) 1 tab PO TID [facility] Last Admin: 12/24/17 09:02 Dose: 1 tab Levofloxacin (Levaquin) 500 mg PO DAILY [facility] Last Admin: 12/24/17 09:02 Dose: 500 mg Lisinopril (Prinivil) 20 mg PO BID [facility] Last Admin: 12/24/17 09:02 Dose: 20 mg Metoprolol Succinate (Toprol Xl) 100 mg PO HS [facility] Last Admin: 12/23/17 20:41 Dose: 100 mg Morphine Sulfate (Morphine Inj) 2 mg IV.PUSH Q4H PRN PRN Reason: PAIN 6-10 Ondansetron HCl (Zofran Inj) 4 mg IV.PUSH Q6H PRN PRN Reason: NAUSEA OR VOMITING Pantoprazole Sodium (Protonix) 20 mg PO BID [facility] Last Admin: 12/24/17 09:02 Dose: 20 mg Prednisone (Deltasone) 20 mg PO DAILY [facility] Last Admin: 12/24/17 09:02 Dose: 20 mg Tamsulosin HCl (Flomax) 0.4 mg PO DAILY [facility] Last Admin: 12/24/17 09:02 Dose: 0.4 mg Physical Exam Vital signs: Vital Signs 12/23/17 11:00 12/23/17 11:44 12/23/17 12:00 Temperature 97.2 F L Pulse Rate 92 H 100 H 92 H Respiratory Rate 16 16 Blood Pressure 142/72 H Pulse Oximetry 98 12/23/17 13:00 12/23/17 14:00 12/23/17 15:00 Temperature Pulse Rate 121 H 92 H 93 H Respiratory Rate Blood Pressure Pulse Oximetry 12/23/17 15:12 12/23/17 16:00 12/23/17 17:00 Temperature 98.3 F Pulse Rate 98 H 110 H 83 Respiratory Rate 16 16 Blood Pressure 159/84 H Pulse Oximetry 96 12/23/17 18:00 12/23/17 20:00 12/23/17 20:04 Temperature 97.8 F Pulse Rate 87 104 H 94 H Respiratory Rate 20 18 Blood Pressure 152/83 H Pulse Oximetry 96 96 12/23/17 21:00 12/23/17 22:00 12/23/17 23:00 Temperature Pulse Rate 100 H 83 90 Respiratory Rate Blood Pressure Pulse Oximetry 12/24/17 00:00 12/24/17 01:00 12/24/17 02:00 Temperature 98.7 F Pulse Rate 88 90 78 Respiratory Rate 20 Blood Pressure 164/88 H Pulse Oximetry 12/24/17 03:00 12/24/17 04:00 12/24/17 05:00 Temperature 98.3 F Pulse Rate 78 83 86 Respiratory Rate 20 Blood Pressure 138/89 Pulse Oximetry 12/24/17 06:00 12/24/17 09:27 Temperature Pulse Rate 76 96 H Respiratory Rate 16 Blood Pressure Pulse Oximetry 96 Intake & Output 12/23/17 12/24/17 12/24/17 18:59 06:59 18:59 Intake Total 1180 / 1180 240 / 240 Output Total 475 / 475 975 / 975 Balance 705 / 705 -735 / -735 Weight 72.9 kg Intake: Oral 1180 / 1180 240 / 240 Output: Urine 475 / 475 975 / 975 Other: Date of Last Bowel Movement 12/22/17 12/22/17 # Bowel Movements 0 - Constitutional no acute distress, average body habitus, cooperative - Routine HEENT Exam Head: Present: normocephalic Eye: Present: EOMI, PERRL, normal accommodation ENT: Present: mucous membranes moist - Routine Neck Exam Present: supple - Routine Respiratory Exam Present: diminished air movement Comments: on continuous o2 - Routine Cardiovascular Exam Present: irregular rhythm Comments: paced - Routine Abdominal Exam Present: soft - Routine Skin Exam Present: intact, ecchymosis - Routine Neurological Exam Present: alert, oriented X3 - Detailed Neurological Exam: Coma Scale Eye Opening: Spontaneous Verbal Response: Oriented Motor Response: Obey commands George Coma Scale Total: 15 - Routine Psychiatric Exam Present: normal affect Results 12/24/17 11:14 12/24/17 11:14 Cardiac Enzymes 12/23/17 Range/Units 07:44 AST 25 (15-37) U/L CBC 12/23/17 Range/Units 07:44 WBC 22.8 H (4.0-11.0) th/mm3 RBC 3.55 L (4.50-5.90) mil/mm3 Hgb 10.0 L (13.0-17.0) gm/dL Hct 31.8 L (39.0-51.0) % Plt Count 366 (150-450) th/mm3 Neut # (Auto) 21.4 H (1.8-7.7) th/mm3 Lymph # (Auto) 0.4 L (1.0-4.8) th/mm3 [place] # (Auto) 1.0 H (0.0-0.9) th/mm3 Eos # (Auto) 0.0 (0.0-0.4) th/mm3 Baso # (Auto) 0.0 (0.0-0.2) th/mm3 Comprehensive Metabolic Panel 12/23/17 12/24/17 Range/Units 07:44 06:28 Sodium 142 141 (136-145) meq/L Potassium 4.5 4.1 (3.5-5.1) meq/L Chloride 103 104 (98-107) meq/L Carbon Dioxide 31.4 30.1 (21.0-32.0) meq/L BUN 37 H 38 H (7-18) mg/dL Creatinine 1.41 H 1.21 (0.60-1.30) mg/dL Calcium 8.7 8.5 (8.5-10.1) mg/dL AST 25 (15-37) U/L ALT 20 (12-78) U/L Alkaline Phosphatase 117 (45-117) U/L Total Protein 7.1 (6.4-8.2) g/dL Albumin 2.6 L (3.4-5.0) g/dL Intake and Output 12/23/17 12/24/17 12/24/17 22:59 06:59 14:59 Intake Total 1180 / 1180 240 / 240 Output Total 475 / 475 975 / 975 Balance 705 / 705 -735 / -735 Intake: Oral 1180 / 1180 240 / 240 Output: Urine 475 / 475 975 / 975 Other: Date of Last Bowel Movement 12/22/17 # Bowel Movements 0 Weight 72.9 kg Assessment and Plan - Plan Assessment Chest pain Pneumonia SOB SSS TIA Atrial Fibrillation CHF CKD CHF PVD Carotid stenosis Plan -Troponin mildly elevated upon admission, could be secondary to pneumonia, patient denies any further chest pain/tightness. Pt is on BB and Eliquis. He declines statin due to side effects in the past. -Being treated for pneumonia with antibiotics, breathing has improved. -[employer] pacemaker in place, device check completed yesterday. -Continues on Eliquis, no issues with bleeding. -No signs of CHF exacerbation, no edema or JVD. -Creatinine improved this AM, patient follows with Dr. Soni outpatient. Will plan to DC home on lasix 20mg daily. -Last echocardiogram was completed July 2017 and showed an ejection fraction of 52%, no significant valvular abnormalities were identified -PVD status post stent 2009, managed by Dr. Alberto -Bilateral carotid stenosis with history of bilateral carotid endarterectomy, most recent March 2017. -BP controlled Patient is stable from a cardiac standpoint for discharge home. Will plan to see in office in 1-2 weeks. The patient was seen and evaluated by Dr. Wick who participated in care, management, and decision making. OK to d/c fu as outpatient Code Status: Full Code Discussed Condition With: Dr. Wick, Dr. Berger, RN
[2017-12-24 10:51] VITALS: TEMP 98.6
--- NOTE | 2017-12-24 11:04 | P.PN ---
Subjective Interval history: Follow-up community-acquired pneumonia/COPD exacerbation December 24, 2017-patient seen and examined, breathing better and denies any chest pain or shortness of breath. Case discussed with cardiology [employer] Physical Exam Vital signs: Vital Signs 12/23/17 11:44 12/23/17 12:00 12/23/17 13:00 Temperature 97.2 F L Pulse Rate 100 H 92 H 121 H Respiratory Rate 16 16 Blood Pressure 142/72 H Pulse Oximetry 98 12/23/17 14:00 12/23/17 15:00 12/23/17 15:12 Temperature Pulse Rate 92 H 93 H 98 H Respiratory Rate 16 Blood Pressure Pulse Oximetry 12/23/17 16:00 12/23/17 17:00 12/23/17 18:00 Temperature 98.3 F Pulse Rate 110 H 83 87 Respiratory Rate 16 Blood Pressure 159/84 H Pulse Oximetry 96 12/23/17 20:00 12/23/17 20:04 12/23/17 21:00 Temperature 97.8 F Pulse Rate 104 H 94 H 100 H Respiratory Rate 20 18 Blood Pressure 152/83 H Pulse Oximetry 96 96 12/23/17 22:00 12/23/17 23:00 12/24/17 00:00 Temperature 98.7 F Pulse Rate 83 90 88 Respiratory Rate 20 Blood Pressure 164/88 H Pulse Oximetry 12/24/17 01:00 12/24/17 02:00 12/24/17 03:00 Temperature Pulse Rate 90 78 78 Respiratory Rate Blood Pressure Pulse Oximetry 12/24/17 04:00 12/24/17 05:00 12/24/17 06:00 Temperature 98.3 F Pulse Rate 83 86 76 Respiratory Rate 20 Blood Pressure 138/89 Pulse Oximetry 12/24/17 07:00 12/24/17 08:00 12/24/17 09:00 Temperature 98.6 F Pulse Rate 82 80 78 Respiratory Rate 20 Blood Pressure 144/78 H Pulse Oximetry 98 12/24/17 09:27 12/24/17 10:00 Temperature Pulse Rate 96 H 68 Respiratory Rate 16 Blood Pressure Pulse Oximetry 96 Intake & Output 12/23/17 12/24/17 12/24/17 18:59 06:59 18:59 Intake Total 1180 / 1180 240 / 240 Output Total 475 / 475 975 / 975 Balance 705 / 705 -735 / -735 Weight 72.9 kg Intake: Oral 1180 / 1180 240 / 240 Output: Urine 475 / 475 975 / 975 Other: Date of Last Bowel Movement 12/22/17 12/22/17 12/23/17 # Bowel Movements 0 Narrative: GENERAL: NAD, A&Ox3 HEAD: Normocephalic. NECK: Supple, trachea midline. No lymphadenopathy. EYES: No scleral icterus. No injection or drainage. CARDIOVASCULAR: Regular rate and rhythm without murmurs, gallops, or rubs. RESPIRATORY: Breath sounds equal bilaterally. No accessory muscle use. GASTROINTESTINAL: Abdomen soft, non-tender, nondistended. MUSCULOSKELETAL: No cyanosis, or edema. SKIN: Warm and dry. NEURO: No focal neurological deficits. Results - Labs CBC & Chem 7: 12/23/17 07:44 12/24/17 06:28 Laboratory Results - last 24 hr 12/24/17 06:28 Sodium 141 Potassium 4.1 Chloride 104 Carbon Dioxide 30.1 Anion Gap 7 BUN 38 H Creatinine 1.21 Estimated GFR 58 L Random Glucose 94 Calcium 8.5 - Procedures none Assessment and Plan - Plan 82-year-old man with Community-acquired pneumonia Hypoxia-resolved COPD exacerbation-resolved s/p Solu-Medrol 20 mg every 12 hours, On prednisone 20 mg daily and continue with Levaquin and DuoNeb as well as Symbicort Maintain oxygen saturation above 92% Leukocytosis Secondary to steroid Chest pain Troponin elevation History of pacemaker History of CHF Cardiology consultation appreciated Secondary to worsening renal function, Lasix restarted however will discharged on 20mg daily and Aldactone has been discontinued 2D echo with EF 55-55% Continue with current medications Chronic kidney disease Renal indices improving Follow renal function Avoid nephrotoxins Atrial fibrillation Continue Cardizem, Eliquis Chronic neuropathy No change in baseline treatments Chronic weakness Walker dependent Physical therapy to treat and eval DVT prophylaxis Eliquis
--- NOTE | 2017-12-24 11:08 | P.DS ---
Date of admission: 12/21/17 06:29 Primary care physician: UNKNOWN Brief History from admission: Mr. Carmona is an 82-year-old male. He is admitted secondary to chest pains with elevated troponin. Chest pain when seen is left lower and lateral. Tenderness to palpation is present. Additional findings on workup in the ER were hypoxia and pneumonia. His hypoxia has improved compared to yesterday. Pneumonia is likely contributory towards this patient's chest pain. Pneumonia is likely responsible for troponin elevation, however further workup to monitor trends of cardiac enzymes is in process. No new complaints this morning. Patient's feeling better than yesterday. Onset of symptoms (shortness of breath , chest pain and pressure) was 3-6 days before reporting to the ER. Acute worsening of shortness of breath and chest pain overnight prompted patient to come into the ER. Sepsis criteria are present and met at time of admit. DS: Summary Hospital Course: While in hospital, patient was treated for: Community-acquired pneumonia Hypoxia-resolved COPD exacerbation-resolved Initially treated with Solu-Medrol, and switched to prednisone 20 mg daily and continued with Levaquin and DuoNeb as well as Symbicort Maintain oxygen saturation above 92% Leukocytosis Secondary to steroid Chest pain Troponin elevation History of pacemaker History of CHF Cardiology consultation appreciated Secondary to worsening renal function Lasix was held. With improvement of renal function, Lasix was restarted however will discharged on 20mg daily and Aldactone has been discontinued 2D echo with EF 55-55% Continue with current medications Chronic kidney disease Renal indices improving Follow renal function Avoid nephrotoxins Atrial fibrillation Treated with Cardizem, Eliquis Chronic neuropathy No change in baseline treatments Chronic weakness Walker dependent Physical therapy was consulted to treat and eval DVT prophylaxis Eliquis - Time Spent with Patient Total time spent providing and/or coordinating discharge services: Greater than 30 minutes - Quality: VTE Deep Vein Thrombosis/Pulmonary Embolism Present on Admission: No Exam Vital signs: Vital Signs 12/23/17 11:44 12/23/17 12:00 12/23/17 13:00 Temperature 97.2 F L Pulse Rate 100 H 92 H 121 H Respiratory Rate 16 16 Blood Pressure 142/72 H Pulse Oximetry 98 12/23/17 14:00 12/23/17 15:00 12/23/17 15:12 Temperature Pulse Rate 92 H 93 H 98 H Respiratory Rate 16 Blood Pressure Pulse Oximetry 12/23/17 16:00 11/13/18 17:00 12/23/17 18:00 Temperature 98.3 F Pulse Rate 110 H 83 87 Respiratory Rate 16 Blood Pressure 159/84 H Pulse Oximetry 96 12/23/17 20:00 12/23/17 20:04 12/23/17 21:00 Temperature 97.8 F Pulse Rate 104 H 94 H 100 H Respiratory Rate 20 18 Blood Pressure 152/83 H Pulse Oximetry 96 96 12/23/17 22:00 12/23/17 23:00 12/24/17 00:00 Temperature 98.7 F Pulse Rate 83 90 88 Respiratory Rate 20 Blood Pressure 164/88 H Pulse Oximetry 12/24/17 01:00 12/24/17 02:00 12/24/17 03:00 Temperature Pulse Rate 90 78 78 Respiratory Rate Blood Pressure Pulse Oximetry 12/24/17 04:00 12/24/17 05:00 12/24/17 06:00 Temperature 98.3 F Pulse Rate 83 86 76 Respiratory Rate 20 Blood Pressure 138/89 Pulse Oximetry 12/24/17 07:00 12/24/17 08:00 12/24/17 09:00 Temperature 98.6 F Pulse Rate 82 80 78 Respiratory Rate 20 Blood Pressure 144/78 H Pulse Oximetry 98 12/24/17 09:27 12/24/17 10:00 Temperature Pulse Rate 96 H 68 Respiratory Rate 16 Blood Pressure Pulse Oximetry 96 Intake & Output 12/23/17 12/24/17 12/24/17 18:59 06:59 18:59 Intake Total 1180 / 1180 240 / 240 Output Total 475 / 475 975 / 975 Balance 705 / 705 -735 / -735 Weight 72.9 kg Intake: Oral 1180 / 1180 240 / 240 Output: Urine 475 / 475 975 / 975 Other: Date of Last Bowel Movement 12/22/17 12/22/17 12/23/17 # Bowel Movements 0 Narrative: GENERAL: NAD, A&Ox3 HEAD: Normocephalic. NECK: Supple, trachea midline. No lymphadenopathy. EYES: No scleral icterus. No injection or drainage. CARDIOVASCULAR: Regular rate and rhythm without murmurs, gallops, or rubs. RESPIRATORY: Breath sounds equal bilaterally. No accessory muscle use. GASTROINTESTINAL: Abdomen soft, non-tender, nondistended. MUSCULOSKELETAL: No cyanosis, or edema. SKIN: Warm and dry. NEURO: No focal neurological deficits. Results Procedures completed during hospitalization: none Labs on day of discharge: Labs from last 24 hours 12/24/17 06:28 Sodium 141 Potassium 4.1 Chloride 104 Carbon Dioxide 30.1 Anion Gap 7 BUN 38 H Creatinine 1.21 Estimated GFR 58 L Random Glucose 94 Calcium 8.5 - Impressions ITS Impressions Chest X-Ray 12/21/17 04:37 CONCLUSION: Unchanged exam. Discharge Plan - Discharge Disposition Patient Disposition: Discharge to SNF - Discharge Condition Condition: Good - Discharge Order Discharge Orders: Discharge Order (Routine); Ordered 12/24/17 Ordered By: Michael Hall - Physicians Team Primary Care Provider: UNKNOWN, Attending Provider: Michael Hall Other Providers: Raad Wick MD ; [facility]
[2017-12-24 11:33] LABS: Baso % (Auto) 0.2 % (0.0-2.0); Eos % (Auto) 0.1 % (0.0-4.0); Hematocrit 33.2 % (39.0-51.0); Hemoglobin 10.3 gm/dL (13.0-17.0); Lymph # (Auto) 0.5 th/mm3 (1.0-4.8); Lymph % (Auto) 2.5 % (9.0-44.0); Mean Corpuscular HGB Conc 31.1 % (32.0-36.0); Mean Corpuscular Hemoglobin 28.2 pg (27.0-34.0); Mean Corpuscular Volume 90.7 fL (80.0-100.0); Mean Platelet Volume 8.5 fL (7.0-11.0); Mono # (Auto) 1.3 th/mm3 (0.0-0.9); Mono % (Auto) 6.7 % (0.0-8.0); Neut % (Auto) 90.5 % (16.0-70.0); Platelet Count 408 th/mm3 (150-450); Red Blood Count 3.66 mil/mm3 (4.50-5.90); Red Cell Distribution Width 15.9 % (11.6-17.2); White Blood Count 19.9 th/mm3 (4.0-11.0)
[2017-12-24 11:54] LABS: Calcium 8.9 mg/dL (8.5-10.1); Carbon Dioxide 31.8 meq/L (21.0-32.0); Potassium 4.1 meq/L (3.5-5.1)
[2017-12-24 12:04] VITALS: BP 143/97; O2SAT 20
[2017-12-24 13:01] VITALS: RESP 15
[2017-12-24 13:16] VITALS: PULSE 68
== END 2017-12-24 16:30 ==
LOC: NEPE 04:10 → NEDA 06:29 → HCIS 08:11
PROVIDERS: ADMIT Hospitalist; ATTEND Hospitalist